=== PATIENT | female | born 1965 | race Caucasian/White ===

== ENCOUNTER → 2016-11-06 | Outpatient (CLI) | payer OTHER ==
--- NOTE | 2016-11-15 20:29 | Diagnostic Imaging Report ---
Bilateral screening mammogram. The current study was also evaluated with a Computer Aided Detection (CAD) system. INDICATION: Screening. No current complaints stated on the questionnaire. COMPARISON: 10/15/08. FINDINGS: The breasts are composed of heterogeneously dense parenchyma which may decrease mammographic sensitivity. There are scattered benign-appearing calcifications seen. Allowing for technique and positional differences, no suspicious change is seen. IMPRESSION: No significant change. ACR BI-RADS Category 2: Benign findings. Result letter will be mailed to the patient. Note: At least 10% of breast cancer is not imaged by mammography. Dictated by: Dictated on workstation # [id number]
== END ==
LOC: RAD 08:49
PROVIDERS: ATTEND Obstetrics & Gynecology
DX: Z12.31 Encounter for screening mammogram for malignant neoplasm of breast (principal)
CPT/HCPCS: 77067

== ENCOUNTER → 2018-11-26 | Outpatient (CLI) | payer OTHER ==
--- NOTE | 2018-11-26 21:26 | Diagnostic Imaging Report ---
INDICATION: Routine screening. COMPARISON: Prior mammogram from 11/06/2016. EXAMINATION: 2D and 3D bilateral screening mammography was performed with CAD. The current study was also evaluated with a Computer Aided Detection (CAD) system. FINDINGS: Scattered fibroglandular densities are identified, bilaterally. There are benign calcifications, bilaterally. No mass or malignant appearing microcalcifications are seen. The axillae are unremarkable. IMPRESSION: No mammographic features suspicious for malignancy are identified. ACR BI-RADS Category 2: Benign findings. Result letter will be mailed to the patient. Note: At least 10% of breast cancer is not imaged by mammography. Dictated by: Dictated on workstation # [id number]
== END ==
LOC: RAD 07:59
PROVIDERS: ATTEND Internal Medicine
DX: Z12.31 Encounter for screening mammogram for malignant neoplasm of breast (principal)
CPT/HCPCS: 77067

== ENCOUNTER 2019-03-22 03:03 | Emergency (ER) | payer OTHER ==
[~2019-03-22] VITALS: Ht 157.5 cm; Wt 61.7 kg
[~2019-03-22 03:03] MED LIST: ASPI-586 PO; ATOR10TA66 PO; CLOP75TA28 PO; NICO-449 BC; OMEP20CA13 PO
[2019-03-22] MEDS ORDERED: FAMOTIDINE 20MG/2ML IV (PEPCID) IV STA (03:16)
[2019-03-22] MEDS ORDERED: diphenhydrAMINE 50 MG/ML INJ (BENADRYL) IV STA (03:16)
[2019-03-22] MEDS ORDERED: methylPREDNISolone 125 MG (Solu-MEDROL) VIAL IV STA (03:16)
--- NOTE | 2019-03-22 03:23 | ED General ---
General Chief Complaint: Allergic Reaction Stated Complaint: HIVES Source of Information: Patient History of Present Illness Date Seen by Provider: Mar 22, 2019 Time Seen by Provider: 03:10 Initial Comments PT ARRIVES VIA POV FROM HOME C/O SEVERE ITCHING AND HIVES OVER MOST OF BODY SINCE 0700 YESTERDAY AM. NO DIFFICULTY BREATHING OR SWALLOWING NO SWELLING ANYWHERE NO HISTORY OF SIMILAR HAS NOT TAKEN ANYTHING FOR SYMPTOMS PT WAS RECENTLY STARTED ON PLAVIX, ATORVASTATIN AND ASPIRIN BY DR. FORBES--ON 02/27/19 HAS NOT TAKEN ANY OF THOSE MEDICATIONS BEFORE PT HAD PERIPHERAL ARTERY ANGIOGRAM 03/02/19 WHICH SHOWED PERIPHERAL ARTERY DISEASE AND LOWER ABDOMINAL AORTA ANEURYSM. NO INTERVENTION WAS DONE. Allergies and Home Medications Allergies Coded Allergies: No Known Drug Allergies (Unverified , 03/02/19) Home Medications Aspirin 81 Mg Tablet.dr, 81 MG PO DAILY, (Reported) Atorvastatin Calcium 10 Mg Tablet, 10 MG PO HS, (Reported) Clopidogrel Bisulfate 75 Mg Tablet, 75 MG PO DAILY, (Reported) Nicotine Polacrilex 4 Mg Lozenge, 4 MG BC QID, (Reported) Omeprazole 20 Mg Capsule.dr, 20 MG PO DAILY, (Reported) Prednisone 20 Mg Tab, 40 MG PO DAILY Prescribed by: DEMETRIS HAINES on 03/22/19 0401 Patient Home Medication List Home Medication List Reviewed: Yes Review of Systems Review of Systems Constitutional: no symptoms reported EENTM: no symptoms reported Respiratory: no symptoms reported; No cough, No short of breath, No wheezing Gastrointestinal: no symptoms reported Genitourinary: no symptoms reported Musculoskeletal: no symptoms reported Skin: see HPI, pruritus, rash Psychiatric/Neurological: Anxiety Hematologic/Lymphatic: Easy Bruising (SINCE STARTING ON ASPIRIN + PLAVIX 02/27/19) Immunological/Allergic: no symptoms reported Past Lnkjlen-Pfdagn-Cnuimn Hx Patient Social History Alcohol Use: Occasionally Uses Alcohol Beverage of Choice: Beer Recreational Drug Use: No Smoking Status: Current Everyday Smoker (1/2 PPD) Type Used: Cigarettes 2nd Hand Smoke Exposure: Yes Recent Foreign Travel: No Contact w/Someone Who Travel: No Recent Hopitalizations: No Past Medical History Surgeries: Yes (PERIPHERAL ARTERY ANGIOGRAM 03/02/19) Hysterectomy Respiratory: No Currently Using CPAP: No Currently Using BIPAP: No Cardiac: Yes (PERIPHERAL ARTERY DISEASE AND DISTAL ABDOMINAL AORTIC ANEURYSM NOTED ON PERIPHERAL ANGIOGRAM 03/02/19--NO INTERVENTION) High Cholesterol, Hypertension, Peripheral Vascular Neurological: No Genitourinary: No Gastrointestinal: Yes Gastroesophageal Reflux, Diverticulosis Musculoskeletal: No Endocrine: No HEENT: No Cancer: No Psychosocial: Yes Anxiety Blood Disorders: No Adverse Reaction/Blood Tranf: No Physical Exam Vital Signs Vital Signs - First Documented 03/22/19 03:06 Temp 96.6 Pulse 120 Resp 18 B/P (MAP) 121/96 (104) Pulse Ox 99 O2 Delivery Room Air Capillary Refill : Height, Weight, BMI Height: 5'2.00" Weight: 142lbs. 0.0oz. 64.679357ni; 26.0 BMI Method: General Appearance: No Apparent Distress, WD/WN, Anxious (EXTREMELY ANXIOUS), Other (CONSTANTLY SCRATCHING ALL OVER) HEENT: PERRL/EOMI, Normal ENT Inspection, Pharynx Normal, Other (NO SWELLING TO LIPS, TONGUE OR UVULA) Neck: Full Range of Motion, Normal Inspection, Non Tender, Supple Respiratory: Normal Breath Sounds, No Accessory Muscle Use, No Respiratory Distress Cardiovascular: Regular Rate, Rhythm, No Edema, No JVD, No Murmur Gastrointestinal: Non Tender, Soft Back: Normal Inspection Extremity: Normal Capillary Refill, No Pedal Edema Neurologic/Psychiatric: Alert, Oriented x3, No Motor/Sensory Deficits, 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 HEAD/NECK/FACE ARE SPARED. ), Other (PT HAS PATCHES OF SUB Q ECCHYMOSIS TO TRUNK AT SITES OF SCRATCHING, IS STARTING TO DEVELOP SIMILAR ON THIGHS AND DORSUM OF RIGHT HAND IN AREAS WHERE SHE IS CURRENTLY SCRATCHING. ) Progress/Results/Core Measures Suspected Sepsis SIRS Temperature: Pulse: Respiratory Rate: Laboratory Tests 03/22/19 03:13: White Blood Count 13.0H Blood Pressure / Mean: Laboratory Tests 03/22/19 03:13: Creatinine 0.72, INR Comment 0.9, Platelet Count 255, Total Bilirubin 0.7 Results/Orders Lab Results Laboratory Tests Test 03/22/19 03:13 Range/Units White Blood Count 13.0 H 4.3-11.0 10^3/uL Red Blood Count 5.33 4.35-5.85 10^6/uL Hemoglobin 16.6 H 11.5-16.0 G/DL Hematocrit 48 35-52 % Mean Corpuscular Volume 91 80-99 FL Mean Corpuscular Hemoglobin 31 25-34 PG Mean Corpuscular Hemoglobin Concent 34 32-36 G/DL Red Cell Distribution Width 14.9 H 10.0-14.5 % Platelet Count 255 130-400 10^3/uL Mean Platelet Volume 11.5 H 7.4-10.4 FL Neutrophils (%) (Auto) 60 42-75 % Lymphocytes (%) (Auto) 33 12-44 % Monocytes (%) (Auto) 5 0-12 % Eosinophils (%) (Auto) 1 0-10 % Basophils (%) (Auto) 0 0-10 % Neutrophils # (Auto) 7.8 1.8-7.8 X 10^3 Lymphocytes # (Auto) 4.3 H 1.0-4.0 X 10^3 Monocytes # (Auto) 0.7 0.0-1.0 X 10^3 Eosinophils # (Auto) 0.1 0.0-0.3 10^3/uL Basophils # (Auto) 0.0 0.0-0.1 10^3/uL Prothrombin Time 12.6 12.2-14.7 SEC INR Comment 0.9 0.8-1.4 Activated Partial Thromboplast Time 32 24-35 SEC Sodium Level 138 135-145 MMOL/L Potassium Level 4.1 3.6-5.0 MMOL/L Chloride Level 105 98-107 MMOL/L Carbon Dioxide Level 19 L 21-32 MMOL/L Anion Gap 14 5-14 MMOL/L Blood Urea Nitrogen 24 H 7-18 MG/DL Creatinine 0.72 0.60-1.30 MG/DL Estimat Glomerular Filtration Rate > 60 BUN/Creatinine Ratio 33 Glucose Level 136 H 70-105 MG/DL Calcium Level 9.5 8.5-10.1 MG/DL Corrected Calcium 9.4 8.5-10.1 MG/DL Total Bilirubin 0.7 0.1-1.0 MG/DL Aspartate Amino Transf (AST/SGOT) 16 5-34 U/L Alanine Aminotransferase (ALT/SGPT) 17 0-55 U/L Alkaline Phosphatase 122 40-136 U/L Total Protein 7.6 6.4-8.2 GM/DL Albumin 4.1 3.2-4.5 GM/DL My Orders Orders - ZAKI,DEMETRIS K DO Ed Iv/Invasive Line Start (03/22/19 03:16) Monitor-Rhythm Ecg Trace Only (03/22/19 03:16) Cbc With Automated Diff (03/22/19 03:16) Comprehensive Metabolic Panel (03/22/19 03:16) Protime With Inr (03/22/19 03:16) Partial Thromboplastin Time (03/22/19 03:16) Famotidine Injection (Pepcid Injection) (03/22/19 03:16) Diphenhydramine Injection (Benadryl Inje (03/22/19 03:16) Methylprednisolone Sod Succ (Solu-Medrol (03/22/19 03:16) Vital Signs/I&O 03/22/19 03:06 Temp 96.6 Pulse 120 Resp 18 B/P (MAP) 121/96 (104) Pulse Ox 99 O2 Delivery Room Air Capillary Refill : Progress Note : Progress Note PT IS MUCH CALMER AND ITCHING IMPROVED AND HIVES BEGINNING TO FADE WITH MEDICATIONS Departure Impression Primary Impression: Urticaria Additional Impression: SUSPECTED MEDICATION ALLERGY Disposition: HOME, SELF-CARE Condition: Improved Departure-Patient Inst. Referrals: MELLISA CURIEL MD (PCP/Family) Primary Care Physician Patient Instructions: Hives (DC), Drug Allergy Add. Discharge Instructions: STOP ASPIRIN, PLAVIX AND ATORVASTATIN TAKE CLARITIN 10 MG IN AM, BENADRYL 50 MG IN PM NEEDED FOR RASH AND ITCHING APPLY HYDROCORTISONE CREAM TO AFFECTED AREAS 3-4 TIMES A DAY LOTS OF CLEAR LIQUIDS FOLLOW UP WITH YOUR DR TOMORROW FOR FURTHER CARE, RETURN TO ER IF WORSE All discharge instructions reviewed with patient and/or family. Voiced understanding. Scripts Prednisone (Prednisone) 20 Mg Tab 40 MG PO DAILY, #6 TAB Prov: DEMETRIS HAINES DO 03/22/19 DEMETRIS HAINES DO Mar 22, 2019 03:23
[2019-03-22 03:26] LABS: BASOPHILS % (AUTO) 0 % (0-10); EOSINOPHILS # (AUTO) 0.1 10^3/uL (0.0-0.3); EOSINOPHILS % (AUTO) 1 % (0-10); HEMATOCRIT 48 % (35-52); HEMOGLOBIN 16.6 G/DL (11.5-16.0); LYMPHOCYTES # (AUTO) 4.3 X 10^3 (1.0-4.0); LYMPHOCYTES % (AUTO) 33 % (12-44); MEAN CORPUSCULAR HEMOGLOBIN 31 PG (25-34); MEAN CORPUSCULAR HGB CONC 34 G/DL (32-36); MEAN CORPUSCULAR VOLUME 91 FL (80-99); MEAN PLATELET VOLUME 11.5 FL (7.4-10.4); MONOCYTES # (AUTO) 0.7 X 10^3 (0.0-1.0); MONOCYTES % (AUTO) 5 % (0-12); NEUTROPHILS # (AUTO) 7.8 X 10^3 (1.8-7.8); NEUTROPHILS % (AUTO) 60 % (42-75); PLATELET COUNT 255 10^3/uL (130-400); RED CELL DISTRIBUTION WIDTH 14.9 % (10.0-14.5)
[2019-03-22 03:42] LABS: INR 0.9 (0.8-1.4); PROTHROMBIN TIME PATIENT 12.6 SEC (12.2-14.7)
[2019-03-22 03:50] LABS: ALANINE AMINOTRANSFERASE 17 U/L (0-55); ALBUMIN 4.1 GM/DL (3.2-4.5); ALKALINE PHOSPHATASE 122 U/L (40-136); BILIRUBIN,TOTAL 0.7 MG/DL (0.1-1.0); BUN/CREATININE RATIO 33; CALCIUM 9.5 MG/DL (8.5-10.1); CARBON DIOXIDE 19 MMOL/L (21-32); CHLORIDE 105 MMOL/L (98-107); CREATININE SERUM 0.72 MG/DL (0.60-1.30); GFR ESTIMATED > 60; GLUCOSE 136 MG/DL (70-105); POTASSIUM 4.1 MMOL/L (3.6-5.0); SODIUM 138 MMOL/L (135-145); TOTAL PROTEIN 7.6 GM/DL (6.4-8.2)
[2019-03-22] MEDS ORDERED: PRD20T PO (04:01)
[2019-03-22 04:13] VITALS: BP 113/72
== END 2019-03-22 04:13 | disposition home or self-care (01) ==
LOC: EDUNIT# 03:03 → ER 03:04
DX: L50.9 Urticaria, unspecified (principal); I73.9 Peripheral vascular disease, unspecified; F41.9 Anxiety disorder, unspecified; I10 Essential (primary) hypertension; E78.00 Pure hypercholesterolemia, unspecified; K21.9 Gastro-esophageal reflux disease without esophagitis; F17.210 Nicotine dependence, cigarettes, uncomplicated; Z87.19 Personal history of other diseases of the digestive system; Z79.02 Long term (current) use of antithrombotics/antiplatelets; Z79.82 Long term (current) use of aspirin; Z90.710 Acquired absence of both cervix and uterus
CPT/HCPCS: 36415; 80053; 85025; 85610; 85730; 93041

== ENCOUNTER 2019-03-24 04:44 | Emergency (ER) | payer OTHER ==
[~2019-03-24] VITALS: Ht 157.5 cm; Wt 61.7 kg
[~2019-03-24 04:44] MED LIST changes: +PRD20T PO
[2019-03-24] MEDS ORDERED: PANTOPRAZOLE 40 MG (PROTONIX) VIAL IV ONE (05:00)
[2019-03-24] MEDS ORDERED: NS IV 500 ML 500 ML IV ONE (05:00)
[2019-03-24] MEDS ORDERED: FAMOTIDINE 20MG/2ML IV (PEPCID) IV STA (05:00)
[2019-03-24] MEDS ORDERED: LIDOCAINE 2% VISCOUS 15 ML UDC PO ONE (05:00)
[2019-03-24] MEDS ORDERED: ANTACID SUSP 30 ML UDC (MYLANTA) PO ONE (05:00)
--- NOTE | 2019-03-24 05:06 | ED Integumentary General ---
General Stated Complaint: POSS ALLERGIC RXN Source: patient, spouse Exam Limitations: no limitations (RICCARDO MEDINA) History of Present Illness Date Seen by Provider: Mar 24, 2019 Time Seen by Provider: 04:50 Initial Comments The patient presents to ER by private conveyance with her and chief complaint that she's having worsening hives and itching. 2 days ago she was diagnosed with urticaria in the ER and put on Benadryl 50 mg every 4 hours as well as topical steroids and 40 mg prednisone daily. She says after she received the IV medications her symptoms nearly resolved. She was feeling better until yesterday. Yesterday he started to come back. She called her research software engineer and he recommended that she restart her Plavix. She had recently been started on Plavix and aspirin and atorvastatin. She was told by the ER doctor to discontinue the m edication since he recently started. Because of her coronary disease burden however her research software engineer recommended she at least be on Plavix which she restarted after the hives already were coming back. She also feels she has a dry mouth and a sharp burning pain starting in her epigastric region radiating up her mid sternum towards her throat where it is unlikely pain. She has a triple a going down in her thoracic cavity. She's not having anxiety that her pain in her chest may not be from her stomach but rather from her heart or AAA. She typically takes omeprazole but she stopped taking that when she started taking the Pepcid 2 days ago. (RICCARDO MEDINA) Allergies and Home Medications Allergies Coded Allergies: No Known Drug Allergies (Unverified , 03/02/19) Home Medications Aspirin 81 Mg Tablet.dr, 81 MG PO DAILY, (Reported) Atorvastatin Calcium 10 Mg Tablet, 10 MG PO HS, (Reported) Clopidogrel Bisulfate 75 Mg Tablet, 75 MG PO DAILY, (Reported) Methylprednisolone 4 Mg Tab, 4 MG PO UD as directed per dose pack Prescribed by: RICCARDO MEDINA on 03/24/19 0619 Nicotine Polacrilex 4 Mg Lozenge, 4 MG BC QID, (Reported) Omeprazole 20 Mg Capsule.dr, 20 MG PO DAILY, (Reported) Prednisone 20 Mg Tab, 40 MG PO DAILY Prescribed by: DEMETRIS HAINES on 03/22/19 0401 Patient Home Medication List Home Medication List Reviewed: Yes (RICCARDO MEDINA) Review of Systems Review of Systems Constitutional: No chills, No diaphoresis EENTM: No ear discharge, No ear pain Respiratory: No cough, No short of breath Cardiovascular: see HPI, chest pain; No edema; Hx of Intervention, vascular hea rt diseas Gastrointestinal: abdominal pain (epigastric); No constipation, No diarrhea Genitourinary: No discharge, No dysuria Musculoskeletal: No back pain, No joint pain Skin: see HPI, pruritus, rash (RICCARDO MEDINA) Past Wuriaer-Pkvgwn-Ykkvpv Hx Patient Social History Alcohol Use: Occasionally Uses Alcohol Beverage of Choice: Beer Recreational Drug Use: No Smoking Status: Current Everyday Smoker Type Used: Cigarettes (1 cig/day) 2nd Hand Smoke Exposure: Yes Recent Foreign Travel: No Contact w/Someone Who Travel: No Recent Hopitalizations: No (RICCARDO MEDINA) Past Medical History Surgeries: Yes (PERIPHERAL ARTERY ANGIOGRAM 03/02/19) Hysterectomy Respiratory: No Currently Using CPAP: No Currently Using BIPAP: No Cardiac: Yes High Cholesterol, Hypertension, Peripheral Vascular Neurological: No Genitourinary: No Gastrointestinal: Yes Gastroesophageal Reflux, Diverticulosis Musculoskeletal: No Endocrine: No HEENT: No Cancer: No Psychosocial: Yes Anxiety Integumentary: Yes Blood Disorders: No Adverse Reaction/Blood Tranf: No (RICCARDO MEDINA) Physical Exam Vital Signs Vital Signs - First Documented 03/24/19 03/24/19 04:49 05:21 Temp 98.2 Pulse 92 Resp 20 B/P (MAP) 164/92 (116) O2 Delivery Room Air (RENETTA RUSSELL MD) Vital Signs Capillary Refill : (RICCARDO MEDINA) General Appearance: WD/WN, no apparent distress HEENT: PERRL/EOMI, normal ENT inspection, TMs normal, pharynx normal Neck: non-tender, full range of motion, supple, normal inspection Cardiovascular: normal peripheral pulses, regular rate, rhythm, no edema Respiratory: lungs clear, normal breath sounds Gastrointestinal: normal bowel sounds, soft, tenderness (mild epigastric tenderness to direct palpation but without mesenteric signs, psoas sign, McBurney's point tenderness, Marks sign) Neurologic/Psychiatric: alert, normal mood/affect, oriented x 3 Skin: rash (urticaria with hives and pruritus.) Skin Problem Location: generalized (RICCARDO MEDINA) Progress/Results/Core Measures Results/Orders Lab Results Laboratory Tests Test 03/24/19 04:55 Range/Units White Blood Count 14.1 H 4.3-11.0 10^3/uL Red Blood Count 4.86 4.35-5.85 10^6/uL Hemoglobin 15.4 11.5-16.0 G/DL Hematocrit 45 35-52 % Mean Corpuscular Volume 92 80-99 FL Mean Corpuscular Hemoglobin 32 25-34 PG Mean Corpuscular Hemoglobin Concent 35 32-36 G/DL Red Cell Distribution Width 14.9 H 10.0-14.5 % Platelet Count 217 130-400 10^3/uL Mean Platelet Volume 11.6 H 7.4-10.4 FL Neutrophils (%) (Auto) 63 42-75 % Lymphocytes (%) (Auto) 29 12-44 % Monocytes (%) (Auto) 7 0-12 % Eosinophils (%) (Auto) 0 0-10 % Basophils (%) (Auto) 0 0-10 % Neutrophils # (Auto) 9.0 H 1.8-7.8 X 10^3 Lymphocytes # (Auto) 4.2 H 1.0-4.0 X 10^3 Monocytes # (Auto) 1.0 0.0-1.0 X 10^3 Eosinophils # (Auto) 0.0 0.0-0.3 10^3/uL Basophils # (Auto) 0.0 0.0-0.1 10^3/uL Neutrophils % (Manual) 58 % Lymphocytes % (Manual) 33 % Monocytes % (Manual) 9 % Prothrombin Time 13.2 12.2-14.7 SEC INR Comment 1.0 0.8-1.4 Activated Partial Thromboplast Time 29 24-35 SEC Sodium Level 143 135-145 MMOL/L Potassium Level 3.6 3.6-5.0 MMOL/L Chloride Level 106 98-107 MMOL/L Carbon Dioxide Level 24 21-32 MMOL/L Anion Gap 13 5-14 MMOL/L Blood Urea Nitrogen 22 H 7-18 MG/DL Creatinine 0.78 0.60-1.30 MG/DL Estimat Glomerular Filtration Rate > 60 BUN/Creatinine Ratio 28 Glucose Level 105 70-105 MG/DL Calcium Level 9.7 8.5-10.1 MG/DL Corrected Calcium 9.6 8.5-10.1 MG/DL Magnesium Level 2.2 1.6-2.4 MG/DL Total Bilirubin 0.6 0.1-1.0 MG/DL Aspartate Amino Transf (AST/SGOT) 13 5-34 U/L Alanine Aminotransferase (ALT/SGPT) 17 0-55 U/L Alkaline Phosphatase 99 40-136 U/L Myoglobin 31.7 10.0-92.0 NG/ML Troponin I < 0.028 <0.028 NG/ML Total Protein 7.6 6.4-8.2 GM/DL Albumin 4.1 3.2-4.5 GM/DL Lipase 18 8-78 U/L (RENETTA RUSSELL MD) My Orders Orders - RENETTA RUSSELL MD Loratadine Tablet (Claritin Tablet) (03/24/19 06:45) (RENETTA RUSSELL MD) Medications Given in ED Current Medications Medications Dose Ordered Sig/Siva Route Start Time Stop Time Status Last Admin Dose Admin Al Hydrox/Mg Hydrox/Simethicone 30 ml ONCE ONCE PO 03/24/19 05:00 03/24/19 05:04 DC 03/24/19 05:11 30 ML Diphenhydramine HCl 50 mg ONCE ONCE IVP 03/24/19 06:45 03/24/19 06:46 DC 03/24/19 06:40 50 MG Lidocaine HCl 15 ml ONCE ONCE PO 03/24/19 05:00 03/24/19 05:04 DC 03/24/19 05:11 15 ML Pantoprazole 40 mg ONCE ONCE IV 03/24/19 05:00 03/24/19 05:04 DC 03/24/19 05:12 40 MG Sodium Chloride 500 ml @ 0 mls/hr Q0M ONCE IV 03/24/19 05:00 03/24/19 05:04 DC 03/24/19 05:12 999 MLS/HR (RENETTA RUSSELL MD) Vital Signs/I&O 03/24/19 03/24/19 04:49 05:21 Temp 98.2 Pulse 92 Resp 20 B/P (MAP) 164/92 (116) O2 Delivery Room Air (RENETTA RUSSELL MD) Progress Progress Note #1: Time: 05:20 Progress Note Famotidine, no Benadryl since she just took some 50 mg and I suspect with her dry mouth she may be a little too much anticholinergics. Solu-Medrol, fluids, pantoprazole and a GI cocktail so I suspect could be epigastric pain to her GERD. EKG was obtained that did demonstrate some ST depression in the lateral leads about one block. We will repeat an EKG posteriorly to make sure there is not a ST elevation AK in a posterior coronary. 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 Manual blood pressure 164/92. Catheterization March 02, [address] Romero: Patent bilateral renal arteries. Suprarenal aorta is normal. Severe infrarenal distal abdominal aortic disease with aortic aneurysm. Patent bilateral common carotid, external iliac artery, common femoral artery. Mild diffuse disease bilaterally SFA and popliteal artery. Progress Note #2: Time: 05:46 Progress Note The GI cocktail made a significant decrease in her epigastric comfort. Her troponin is normal and its been close to 12 hours since the discomfort started. AAA is below the renal arteries and not near where she is having her pain. Her epigastric region is tender to direct palpation suspect this is her GERD and she needs to resume taking her omeprazole. The steroids could possibly worsen her GERD in addition to stopping her omeprazole for the past 2 days. (RICCARDO MEDINA) Progress Note : Time: 07:33 Progress Note Patient did well after repeat Benadryl. Symptoms continued to decrease but had not completely resolved. Loratadine was also given. See discharge instructions from Dr. Medina. (RENETTA RUSSELL MD) Initial ECG Impression Date: Mar 24, 2019 Initial ECG Impression Time: 05:06 Initial ECG Rate: 91 Initial ECG Rhythm: Normal Sinus Initial ECG Intervals: QT (463) Initial ECG Impression: Normal, Nonspecific Changes Initial ECG Comparisson: No Previous ECG Available Comment PVCs. Sinus rhythm. One block of ST depression in the lateral leads, V3, V4, V5 and V6. EKG : EKG Time: 05:25 Rate: 85 Rhythm: Normal Sinus Intervals: Normal ECG Comparisson: Unchanged ECG Impression: Normal, Nonspecific Changes Comment Normal sinus rhythm with PACs and no clinically significant ST elevation or depression. (RICCARDO MEDINA) Diagnostic Imaging Diagonstic Imaging: Xray Plain Films/CT/US/NM/MRI: chest (1v) Comments No acute cardiopulmonary process on one view chest x-ray. Reviewed: Reviewed by Me (RICCARDO MEDINA) Departure Impression Primary Impression: Urticaria Disposition: HOME, SELF-CARE Condition: Improved Departure-Patient Inst. Decision time for Depature: 06:17 (RICCARDO MEDINA) Referrals: MELLISA CURIEL MD (PCP/Family) Primary Care Physician Patient Instructions: Hives (DC) Add. Discharge Instructions: Continue taking your Plavix as prescribed. For the hives I suggest using a baseline second-generation antihistamine such as Claritin/loratadine or Zyrtec/cetirizine 1 tablet daily. If you're still having itching breakthrough within every 6 hours you can take one or 2 tablets of Benadryl as needed. Keep your skin moisturized with a ointment such as Eucerin, CeraVe or Nutraderm. Continue to take the famotidine one tablet twice daily and omeprazole daily. Return to the ER having severe chest pain, shortness of breath, difficulty swallowing fluids, swollen tongue, wheezing or stridor. 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 Follow-up with your primary care doctor for continued management. Scripts Methylprednisolone (Medrol) 4 Mg Tab 4 MG PO UD for 6 Days, #21 TAB 0 Refills as directed per dose pack Prov: RICCARDO MEDINA 03/24/19 Work/School Note: Work Release Form Date Seen in the Emergency Department: Mar 24, 2019 Return to Work: Mar 26, 2019 Restrictions: No Restrictions Copy Copies To 1: MELLISA CURIEL MD, TITUS J Mar 24, 2019 05:06 RENETTA RUSSELL MD Mar 24, 2019 07:18
[2019-03-24 05:11] LABS: BASOPHILS % (AUTO) 0 % (0-10); EOSINOPHILS % (AUTO) 0 % (0-10); HEMATOCRIT 45 % (35-52); HEMOGLOBIN 15.4 G/DL (11.5-16.0); LYMPHOCYTES # (AUTO) 4.2 X 10^3 (1.0-4.0); LYMPHOCYTES % (AUTO) 29 % (12-44); MEAN CORPUSCULAR HEMOGLOBIN 32 PG (25-34); MEAN CORPUSCULAR HGB CONC 35 G/DL (32-36); MEAN CORPUSCULAR VOLUME 92 FL (80-99); MEAN PLATELET VOLUME 11.6 FL (7.4-10.4); MONOCYTES % (AUTO) 7 % (0-12); NEUTROPHILS % (AUTO) 63 % (42-75); PLATELET COUNT 217 10^3/uL (130-400); RED CELL DISTRIBUTION WIDTH 14.9 % (10.0-14.5); WHITE BLOOD COUNT 14.1 10^3/uL (4.3-11.0)
[2019-03-24 05:16] LABS: PROTHROMBIN TIME PATIENT 13.2 SEC (12.2-14.7)
[2019-03-24 05:26] LABS: ALANINE AMINOTRANSFERASE 17 U/L (0-55); ALBUMIN 4.1 GM/DL (3.2-4.5); ALKALINE PHOSPHATASE 99 U/L (40-136); BILIRUBIN,TOTAL 0.6 MG/DL (0.1-1.0); BUN/CREATININE RATIO 28; CALCIUM 9.7 MG/DL (8.5-10.1); CARBON DIOXIDE 24 MMOL/L (21-32); CHLORIDE 106 MMOL/L (98-107); CREATININE SERUM 0.78 MG/DL (0.60-1.30); GFR ESTIMATED > 60; GLUCOSE 105 MG/DL (70-105); LIPASE 18 U/L (8-78); MAGNESIUM 2.2 MG/DL (1.6-2.4); POTASSIUM 3.6 MMOL/L (3.6-5.0); SODIUM 143 MMOL/L (135-145); TOTAL PROTEIN 7.6 GM/DL (6.4-8.2)
[2019-03-24] MEDS ORDERED: NF-METHYLP PO (06:19)
[2019-03-24 06:29] LABS: LYMPHOCYTES % (MANUAL) 33 %; MONOCYTES % (MANUAL) 9 %; NEUTROPHILS % (MANUAL) 58 %
[2019-03-24] MEDS ORDERED: LORATADINE (CLARITIN) 10 MG TAB PO ONE (06:45)
[2019-03-24] MEDS ORDERED: diphenhydrAMINE 50 MG/ML INJ (BENADRYL) IVP ONE (06:45)
--- NOTE | 2019-03-24 07:07 | Diagnostic Imaging Report ---
Indication: Epigastric pain Upright chest shows normal heart size and vascularity. The lungs are clear. There is no effusion or pneumothorax. There is no bony ABnormality. Impression: Normal chest. Dictated by: Dictated on workstation # [id number]
[2019-03-24 07:32] VITALS: BP 152/74
--- NOTE | 2019-03-24 07:32 | NUR ---
B/P ON TAKEN THROUGH PATIENT STAY PER NIGHT [facility] REPORTS B/P NOT WORKING ON PATIENT. MANUAL DONE ON DISCHARGE.
== END 2019-03-24 07:32 | disposition home or self-care (01) ==
LOC: EDUNIT# 04:44 → ER 04:46
DX: L50.9 Urticaria, unspecified (principal); I73.9 Peripheral vascular disease, unspecified; I10 Essential (primary) hypertension; E78.00 Pure hypercholesterolemia, unspecified; K21.9 Gastro-esophageal reflux disease without esophagitis; F41.9 Anxiety disorder, unspecified; F17.210 Nicotine dependence, cigarettes, uncomplicated; Z87.19 Personal history of other diseases of the digestive system; Z79.82 Long term (current) use of aspirin; Z79.02 Long term (current) use of antithrombotics/antiplatelets; Z90.710 Acquired absence of both cervix and uterus
CPT/HCPCS: 36415; 71045; 80053; 83690; 83735; 83874; 84484; 85007; 85027; 85610; 85730; 93005; 93041

== ENCOUNTER 2019-04-30 16:20 | Emergency (ER) | payer OTHER ==
[~2019-04-30] VITALS: Ht 157 cm; Wt 59.0 kg
[~2019-04-30 16:20] MED LIST changes: +NF-METHYLP PO
[2019-04-30] MEDS ORDERED: LACTATED RINGERS 1,000 ML IV ONE (16:51)
[2019-04-30] MEDS ORDERED: fentaNYL INJECTION 100 MCG/2 ML AMP IVP STA (16:54)
[2019-04-30] MEDS ORDERED: ACETAMINOPHEN 500 MG TAB (TYLENOL) PO STA (16:54)
[2019-04-30 17:05] LABS: BASOPHILS % (AUTO) 0 % (0-10); EOSINOPHILS # (AUTO) 0.1 10^3/uL (0.0-0.3); EOSINOPHILS % (AUTO) 1 % (0-10); HEMATOCRIT 42 % (35-52); HEMOGLOBIN 14.2 G/DL (11.5-16.0); LYMPHOCYTES # (AUTO) 1.9 X 10^3 (1.0-4.0); LYMPHOCYTES % (AUTO) 17 % (12-44); MEAN CORPUSCULAR HEMOGLOBIN 31 PG (25-34); MEAN CORPUSCULAR HGB CONC 34 G/DL (32-36); MEAN CORPUSCULAR VOLUME 92 FL (80-99); MEAN PLATELET VOLUME 11.4 FL (7.4-10.4); MONOCYTES # (AUTO) 0.8 X 10^3 (0.0-1.0); MONOCYTES % (AUTO) 8 % (0-12); NEUTROPHILS # (AUTO) 8.2 X 10^3 (1.8-7.8); NEUTROPHILS % (AUTO) 75 % (42-75); PLATELET COUNT 202 10^3/uL (130-400); RED CELL DISTRIBUTION WIDTH 15.1 % (10.0-14.5)
[2019-04-30 17:10] LABS: PROTHROMBIN TIME PATIENT 13.6 SEC (12.2-14.7)
[2019-04-30 17:15] LABS: BILIRUBIN,URINE NEGATIVE (NEGATIVE); CLARITY,URINE CLEAR; COLOR,URINE YELLOW; GLUCOSE, URINE (UA) NEGATIVE (NEGATIVE); KETONES,URINE 2+ (NEGATIVE); LEUKOCYTE ESTERASE ,URINE 1+ (NEGATIVE); NITRITE,URINE NEGATIVE (NEGATIVE); PH,URINE 5 (5-9); PROTEIN,URINE NEGATIVE (NEGATIVE); UROBILINOGEN,URINE NORMAL (NORMAL)
[2019-04-30] MEDS ORDERED: CATHETER FLUSH 10 ML SYR IV PRN (17:15)
[2019-04-30] MEDS ORDERED: NS 100 ML (IVPB) BAG IV ONE (17:15)
[2019-04-30] MEDS ORDERED: HOLD METFORMIN - RECEIVED CONTRAST 20 ML VIAL IV SCH (17:15)
[2019-04-30] MEDS ORDERED: IOHEXOL 350 MG/ML 100 ML (OMNIPAQUE 350) VIAL IV ONE (17:15)
[2019-04-30 17:19] LABS: ALANINE AMINOTRANSFERASE 30 U/L (0-55); ALBUMIN 4.2 GM/DL (3.2-4.5); ALKALINE PHOSPHATASE 104 U/L (40-136); BILIRUBIN,TOTAL 0.5 MG/DL (0.1-1.0); BUN/CREATININE RATIO 28; CALCIUM 9.5 MG/DL (8.5-10.1); CARBON DIOXIDE 25 MMOL/L (21-32); CHLORIDE 108 MMOL/L (98-107); CREATININE SERUM 0.72 MG/DL (0.60-1.30); GFR ESTIMATED > 60; GLUCOSE 113 MG/DL (70-105); POTASSIUM 3.3 MMOL/L (3.6-5.0); SODIUM 141 MMOL/L (135-145); TOTAL PROTEIN 7.2 GM/DL (6.4-8.2)
[2019-04-30 17:21] LABS: BACTERIA,URINE NEGATIVE /HPF; WBC,URINE 0-2 /HPF
--- NOTE | 2019-04-30 17:29 | ED Abdominal Pain ---
General Chief Complaint: Abdominal/GI Problems Stated Complaint: DX W/ DIVERTICULITIS/ABD PAIN/CP/ARM PAIN Nursing Triage Note: Pt ambulates to [facility] 9 with C/O abd pain that radiates to lower back. Pt states she was Dx with AAA early Mar and Hx of diverticulitis. Pt states pain has worsened since Saturday. Sepsis Screen: No Definite Risk Source of Information: Patient Exam Limitations: No Limitations (RENETTA LAWLER STUDENT) History of Present Illness Date Seen by Provider: Apr 30, 2019 Time Seen by Provider: 17:00 Initial Comments The patient is a wd/wn 54 y/o female who is here with a chief complaint of abdominal pain. The has left lower abdominal pain that started last and is getting progressively worse. She describes the pain as sharp at 7/10, most intense in the left lower quadrant with mild pain throughout her abdomen. She is also experiencing lower back pain. She was seen at her primary care physician's offic on Saturday and was diagnosed with acute diverticulitis. She was prescribed ciprofloxacin and instructed to return if her symptoms did not improve. Urinalysis at the physician's office was also unremarkable according to the patient. Her pain is continuing to get worse and that brought her to the ER today. She denies nausea, vomiting, diarrhea, or fevers. She mentions that she was recently diagnosed with an abdominal aortic aneurysm. Timing/Duration: 6-7 Days Location: LLQ Radiation: Back Activities at Onset: None Modifying Factors: Improves With Lying down; Worsens With Movement Associated Symptoms: No Nausea/Vomiting, No Shortness of Air (RENETTA LAWLER MED STUDENT) Initial Comments See preceptor note below. (RENETTA RUSSELL MD) Allergies and Home Medications Allergies Coded Allergies: No Known Drug Allergies (Unverified , 03/02/19) Home Medications Aspirin 81 Mg Tablet.dr, 81 MG PO DAILY, (Reported) Atorvastatin Calcium 10 Mg Tablet, 10 MG PO HS, (Reported) Clopidogrel Bisulfate 75 Mg Tablet, 75 MG PO DAILY, (Reported) Methylprednisolone 4 Mg Tab, 4 MG PO UD as directed per dose pack Prescribed by: RICCARDO KUO on 03/24/19 0619 Nicotine Polacrilex 4 Mg Lozenge, 4 MG BC QID, (Reported) Omeprazole 20 Mg Capsule.dr, 20 MG PO DAILY, (Reported) Prednisone 20 Mg Tab, 40 MG PO DAILY Prescribed by: DEMETRIS HAINES on 03/22/19 0401 Patient Home Medication List Home Medication List Reviewed: Yes (RENETTA RUSSELL MD) Review of Systems Review of Systems Constitutional: No fever, No malaise EENTM: No Blurred Vision, No Double Vision Respiratory: Denies Cough, Denies Shortness of Air Cardiovascular: Denies Chest Pain, Denies Palpitations Gastrointestinal: Abdominal Pain, Constipated; Denies Diarrhea, Denies Nausea, Denies Vomiting (RENETTA LAWLER STUDENT) Past Jjcetob-Ajommz-Hzrirj Hx Patient Social History Alcohol Use: Denies Use Number of Drinks Today: AA Alcohol Beverage of Choice: Beer Recreational Drug Use: No Smoking Status: Current Everyday Smoker Type Used: Cigarettes 2nd Hand Smoke Exposure: Yes Recent Foreign Travel: No Contact w/Someone Who Travel: No Recent Infectious Disease Expo: No Recent Hopitalizations: No Physical Abuse: No Sexual Abuse: No Mistreated: No Fear: No (RENETTA LAWLER) Past Medical History Surgeries: Yes (PERIPHERAL ARTERY ANGIOGRAM 03/02/19) Hysterectomy Respiratory: No Currently Using CPAP: No Currently Using BIPAP: No Cardiac: Yes Aneurysm, High Cholesterol, Hypertension, Peripheral Vascular Neurological: No Genitourinary: No Gastrointestinal: Yes Gastroesophageal Reflux, Diverticulosis Musculoskeletal: No Endocrine: No HEENT: No Cancer: No Psychosocial: Yes Anxiety Integumentary: Yes Blood Disorders: No Adverse Reaction/Blood Tranf: No (RENETTA LAWLER STUDENT) Physical Exam Vital Signs Vital Signs - First Documented 04/30/19 16:36 Temp 38.0 Pulse 100 Resp 19 B/P (MAP) 146/96 (113) Pulse Ox 98 O2 Delivery Room Air (RENETTA RUSSELL MD) Vital Signs Capillary Refill : Less Than 3 Seconds (RENETTA LAWLER STUDENT) Height/Weight/BMI Height: 5'2.00" Weight: 136lbs. 0.0oz. 61.511931rz; 23.00 BMI Method:Stated General Appearance: WD/WN, no apparent distress HEENT: PERRL/EOMI Respiratory: chest non-tender, lungs clear, normal breath sounds Gastrointestinal: normal bowel sounds, soft, tenderness Neurologic/Psychiatric: no motor/sensory deficits, alert, normal mood/affect, oriented x 3 Skin: normal color, warm/dry (RENETTA LAWLER MED STUDENT) Focused Exam Lactate Level 04/30/19 16:56: Lactic Acid Level 1.15 (RENETTA RUSSELL MD) Lactic Acid Level Laboratory Tests Test 04/30/19 16:56 Lactic Acid Level 1.15 MMOL/L (0.50-2.00) (RENETTA RUSSELL MD) Progress/Results/Core Measures Results/Orders Lab Results Laboratory Tests Test 04/30/19 16:50 04/30/19 16:56 04/30/19 17:00 Range/Units White Blood Count 11.0 4.3-11.0 10^3/uL Red Blood Count 4.57 4.35-5.85 10^6/uL Hemoglobin 14.2 11.5-16.0 G/DL Hematocrit 42 35-52 % Mean Corpuscular Volume 92 80-99 FL Mean Corpuscular Hemoglobin 31 25-34 PG Mean Corpuscular Hemoglobin Concent 34 32-36 G/DL Red Cell Distribution Width 15.1 H 10.0-14.5 % Platelet Count 202 130-400 10^3/uL Mean Platelet Volume 11.4 H 7.4-10.4 FL Neutrophils (%) (Auto) 75 42-75 % Lymphocytes (%) (Auto) 17 12-44 % Monocytes (%) (Auto) 8 0-12 % Eosinophils (%) (Auto) 1 0-10 % Basophils (%) (Auto) 0 0-10 % Neutrophils # (Auto) 8.2 H 1.8-7.8 X 10^3 Lymphocytes # (Auto) 1.9 1.0-4.0 X 10^3 Monocytes # (Auto) 0.8 0.0-1.0 X 10^3 Eosinophils # (Auto) 0.1 0.0-0.3 10^3/uL Basophils # (Auto) 0.0 0.0-0.1 10^3/uL Prothrombin Time 13.6 12.2-14.7 SEC INR Comment 1.0 0.8-1.4 Activated Partial Thromboplast Time 32 24-35 SEC Sodium Level 141 135-145 MMOL/L Potassium Level 3.3 L 3.6-5.0 MMOL/L Chloride Level 108 H 98-107 MMOL/L Carbon Dioxide Level 25 21-32 MMOL/L Anion Gap 8 5-14 MMOL/L Blood Urea Nitrogen 20 H 7-18 MG/DL Creatinine 0.72 0.60-1.30 MG/DL Estimat Glomerular Filtration Rate > 60 BUN/Creatinine Ratio 28 Glucose Level 113 H 70-105 MG/DL Calcium Level 9.5 8.5-10.1 MG/DL Corrected Calcium 9.3 8.5-10.1 MG/DL Total Bilirubin 0.5 0.1-1.0 MG/DL Aspartate Amino Transf (AST/SGOT) 24 5-34 U/L Alanine Aminotransferase (ALT/SGPT) 30 0-55 U/L Alkaline Phosphatase 104 40-136 U/L Total Protein 7.2 6.4-8.2 GM/DL Albumin 4.2 3.2-4.5 GM/DL Lactic Acid Level 1.15 0.50-2.00 MMOL/L Urine Color YELLOW Urine Clarity CLEAR Urine pH 5 5-9 Urine Specific [place] 1.010 L 1.016-1.022 Urine Protein NEGATIVE NEGATIVE Urine Glucose (UA) NEGATIVE NEGATIVE Urine Ketones 2+ H NEGATIVE Urine Nitrite NEGATIVE NEGATIVE Urine Bilirubin NEGATIVE NEGATIVE Urine Urobilinogen NORMAL NORMAL MG/DL Urine Leukocyte Esterase 1+ H NEGATIVE Urine RBC (Auto) NEGATIVE NEGATIVE Urine RBC NONE /HPF Urine WBC 0-2 /HPF Urine Squamous Epithelial Cells 2-5 /HPF Urine Crystals NONE /LPF Urine Bacteria NEGATIVE /HPF Urine Casts NONE /LPF Urine Mucus NEGATIVE /LPF Urine Culture Indicated CULTURE PENDING (RENETTA RUSSELL MD) Medications Given in ED Current Medications Medications Dose Ordered Sig/Siva Route Start Time Stop Time Status Last Admin Dose Admin Iohexol 100 ml ONCE ONCE IV 04/30/19 17:15 04/30/19 17:17 DC 04/30/19 17:46 85 ML Lactated Ringer's 1,000 ml @ 0 mls/hr Q0M ONCE IV 04/30/19 16:51 04/30/19 16:56 DC 04/30/19 17:11 0 MLS/HR Sodium Chloride 10 ml NEEDED PRN IV 04/30/19 17:15 04/30/19 17:46 10 ML Sodium Chloride 100 ml ONCE ONCE IV 04/30/19 17:15 04/30/19 17:17 DC 04/30/19 17:46 80 ML (RENETTA RUSSELL MD) Vital Signs/I&O 04/30/19 16:36 Temp 38.0 Pulse 100 Resp 19 B/P (MAP) 146/96 (113) Pulse Ox 98 O2 Delivery Room Air (RENETTA RUSSELL MD) Blood Pressure Mean: 113 Diagnostic Imaging Diagonstic Imaging: CT Plain Films/CT/US/NM/MRI: chest, abdomen, pelvis Comments CT chest, abdomen and pelvis angiogram viewed by me and report reviewed. See report below: NAME: LEROY TERRAZAS [facility] REC#: [id number] PT STATUS: REG ER : 1965 PHYSICIAN: ENRRIQUE BANERJEE MD ADMIT DATE: 04/30/19/ER Signed Date of Exam: 04/30/19 CT ANGIO CHST/ABD/PELV W PROCEDURE: CT angiography of the chest with contrast and CT abdomen and pelvis with contrast. TECHNIQUE: Multiple contiguous axial images were obtained through the chest, abdomen and pelvis after administration of intravenous contrast. 3D MIP reconstructed CT angiography acquisitions of the aorta were then performed. Auto Exposure Controls were utilized during the CT exam to meet ALARA standards for radiation dose reduction. INDICATION: Abdominal aortic aneurysm. FINDINGS: Good opacification of the aorta. The aortic root measures approximately 3 cm. There is some atherosclerotic disease of the descending thoracic aorta and abdominal aorta. There is no evidence of aortic aneurysm. There is high-grade stenosis of the distal aorta just proximal to the iliac bifurcation estimated 90%. There is opacification of both common iliac arteries with high-grade stenosis of the right common iliac artery estimated greater than 80%. External iliac arteries are widely patent. There is moderate atherosclerotic change of the common femoral artery bilaterally. Both renal arteries are widely patent. The superior and inferior mesenteric artery are widely patent. Celiac arteries are widely patent. The lungs are clear. No mediastinal or hilar adenopathy of pathologic size. Largest lymph node is in the right hilum measuring approximately 12 mm. Liver appears normal. Gallbladder and bile ducts are normal. Pancreas and spleen are normal. The adrenal glands show a well-circumscribed fatty lesion on the right measuring 3 cm. Left adrenal gland is normal. Kidneys appear normal. The adrenal gland shows mean Hounsfield unit of 42 on the arterial phase with the mean Hounsfield unit of 33 on the delayed images. The nonenhanced images show mean Hounsfield unit of -2. Bowel gas pattern appears normal throughout. Appendix is visualized and normal. There are no pelvic masses. Uterus is absent. There is no free air or free fluid. Reconstructed images of the thoracic and lumbar spine show no evidence of compression fractures with good alignment. IMPRESSION: 1. Severe atherosclerotic changes noted in distal aorta with high-grade stenosis estimated 90%. Also hemodynamic stenosis of the right common iliac artery. 2. 3 cm fatty well-circumscribed adrenal lesion on the right likely representing adenoma. Followup recommended to confirm stability. Dictated by: Dictated on workstation # [id number] Dict: 04/30/191749 Trans: 04/30/191923 Interpreted by: ELISEO BABCOCK MD Electronically signed by: ELISEO BABCOCK MD 04/30/191923 Diagonstic Imaging: Xray Plain Films/CT/US/NM/MRI: chest Comments NAME: LEROY TERRAZAS [facility] REC#: [id number] PT STATUS: REG ER : 1965 PHYSICIAN: ENRRIQUE BANERJEE MD ADMIT DATE: 04/30/19/ER Signed Date of Exam: 04/30/19 CHEST 1 VIEW, AP/PA ONLY INDICATION: Febrile. History of aortic aneurysm. Back pain. COMPARISON: 03/24/2019. FINDINGS: The lungs are well aerated. There are no infiltrates. There is no air trapping. The heart is not enlarged. No pulmonary edema. No hilar adenopathy. No pneumothorax or pleural effusion. No bony abnormalities. IMPRESSION: Normal portable chest. Dictated by: Dictated on workstation # [id number] Dict: 04/30/191726 Trans: 04/30/191923 Interpreted by: ELISEO BABCOCK MD Electronically signed by: ELISEO BABCOCK MD 04/30/191923 (RENETTA RUSSELL MD) Departure Impression Primary Impression: Abdominal aortic aneurysm Qualified Codes: I71.4 - Abdominal aortic aneurysm, without rupture Additional Impression: Left lower quadrant pain Disposition: XFER SHT-TRM HOSP Condition: Stable Transfer Time Spoke to Accepting Phy: 19:10 Transfer Progress Notes Transfer to [facility] was facilitated by Dr. Forbes who contacted Dr. Craven personally and in consultation with him recommended transfer to [facility]. Dr. Craven confirmed a transfer with transfer center with whom I have been in contact. Transfer Time: 21:38 Transfer Facility: [facility] Method of Transfer: EMS (RENETTA RUSSELL MD) Departure-Patient Inst. Referrals: MELLISA CURIEL MD (PCP/Family) Primary Care Physician I have personally seen, interviewed, and examined this patient along with Danilo Lawler, MS 4. I agree with MS 4 history, physical, assessment, and documentation. I assumed care of this patient from Dr. Banerjee at shift change. Chart has been reviewed including CT scan which was viewed by me and report reviewed. I've examined the patient. I agree with above note with the following additions and changes: Patient had an abdominal aortic aneurysm identified in late March by angiogram performed by Dr. Forbes. She has referral to Dr. Craven pending at [facility] for May 18. She has been experiencing increasing abdominal pain over the past 10 days. She was seen earlier in the week prior primary care provider who thought perhaps she had diverticulitis. She has been on antibiotics since Saturday. This has not improved her pain. In fact, her pain has worsened. CT angiogram was obtained today which showed evidence of distal abdominal aortic stenosis that extends into the iliac arteries up to 90 percent. This stenosis was characterized as aneurysmal by Dr. Forbes on the angiogram previously. Exam: Gen.: Alert, oriented, uncomfortable HEENT: Normocephalic and atraumatic, mucous membranes moist Neck: Normal to inspection Lungs: Clear to auscultation bilaterally with normal effort Heart: Regular rate and rhythm without murmur Abdomen: Soft, minimally tender in the right lower quadrant and moderately tender in the left lower quadrant, no masses, nondistended, normal bowel sounds Extremities: No edema, nontender, brisk capillary refill bilaterally, posterior pedal pulses faintly palpable in the left leg, dorsal pedal pulses not palpable on the left. Skin: Warm and dry without rashes, no rashes on the abdomen in the area of pain Neuro psych: Alert, oriented, no focal deficits, slightly anxious Patient's pain is primarily localized in the left lower quadrant. She also com [place] of some lower back aching and IV sleep had some pain in the right lower quadrant as well. Fentanyl successfully treated her pain. I discussed the case with Dr. Guero Fitch, vascular surgeon community education specialist at [facility]. He suggested expediting the consultation to early next week but was not certain [facility]. I updated Dr. Forbes who contacted Dr. Craven. After consultation between the 2 of them, the decision was made to transfer her to [facility]. Patient did have a borderline temperature of 100.4 on initial assessment. Temperature is now 98.1 after Tylenol. It is possible that her abdominal pain could be related to viral illness. However, in the context of serious vascular disease in the lower abdomen, she deserves closer evaluation by a vascular specialist. No alternative source for pain has been identified. No infectious etiologies have been identified. Patient is agreeable to transfer. Arrangements are being made to transfer her via EMS. 20:20 - I spoke with Dr. Craven personally and reviewed the case. He would like to keep with the plan of transfer to [facility]. We are still awaiting bed assignment to activate EMS. 21:21 - patient's room is now clean and ready. [facility] EMS transfer is presently not available for several hours. Given patient's stable condition, we will allow her to be transported by private vehicle with her which is their desire. [facility] was given an update on this status. Patient has promised to go directly from [facility] to [facility] without any other stops and to remain NPO. (RENETTA RUSSELL MD) Copy Copies To 1: MELLISA CURIEL MD Copies To 2: Philippe FORBES MD, JOSHUA K MED STUDENT Apr 30, 2019 17:29 RENETTA RUSSELL MD Apr 30, 2019 19:30
--- NOTE | 2019-04-30 17:32 | Diagnostic Imaging Report ---
INDICATION: Febrile. History of aortic aneurysm. Back pain. COMPARISON: 03/24/2019. FINDINGS: The lungs are well aerated. There are no infiltrates. There is no air trapping. The heart is not enlarged. No pulmonary edema. No hilar adenopathy. No pneumothorax or pleural effusion. No bony abnormalities. IMPRESSION: Normal portable chest. Dictated by: Dictated on workstation # [id number]
--- NOTE | 2019-04-30 18:02 | Diagnostic Imaging Report ---
PROCEDURE: CT angiography of the chest with contrast and CT abdomen and pelvis with contrast. TECHNIQUE: Multiple contiguous axial images were obtained through the chest, abdomen and pelvis after administration of intravenous contrast. 3D MIP reconstructed CT angiography acquisitions of the aorta were then performed. Auto Exposure Controls were utilized during the CT exam to meet ALARA standards for radiation dose reduction. INDICATION: Abdominal aortic aneurysm. FINDINGS: Good opacification of the aorta. The aortic root measures approximately 3 cm. There is some atherosclerotic disease of the descending thoracic aorta and abdominal aorta. There is no evidence of aortic aneurysm. There is high-grade stenosis of the distal aorta just proximal to the iliac bifurcation estimated 90%. There is opacification of both common iliac arteries with high-grade stenosis of the right common iliac artery estimated greater than 80%. External iliac arteries are widely patent. There is moderate atherosclerotic change of the common femoral artery bilaterally. Both renal arteries are widely patent. The superior and inferior mesenteric artery are widely patent. Celiac arteries are widely patent. The lungs are clear. No mediastinal or hilar adenopathy of pathologic size. Largest lymph node is in the right hilum measuring approximately 12 mm. Liver appears normal. Gallbladder and bile ducts are normal. Pancreas and spleen are normal. The adrenal glands show a well-circumscribed fatty lesion on the right measuring 3 cm. Left adrenal gland is normal. Kidneys appear normal. The adrenal gland shows mean Hounsfield unit of 42 on the arterial phase with the mean Hounsfield unit of 33 on the delayed images. The nonenhanced images show mean Hounsfield unit of -2. Bowel gas pattern appears normal throughout. Appendix is visualized and normal. There are no pelvic masses. Uterus is absent. There is no free air or free fluid. Reconstructed images of the thoracic and lumbar spine show no evidence of compression fractures with good alignment. IMPRESSION: 1. Severe atherosclerotic changes noted in distal aorta with high-grade stenosis estimated 90%. Also hemodynamic stenosis of the right common iliac artery. 2. 3 cm fatty well-circumscribed adrenal lesion on the right likely representing adenoma. Followup recommended to confirm stability. Dictated by: Dictated on workstation # [id number]
--- NOTE | 2019-04-30 21:10 | NUR ---
[facility] UNABLE TO TRANSFER PT. DR. RUSSELL SPOKE WITH [facility] AND AGREES TO PT GOING BY POV. DR. RUSSELL SPOKE WITH PT AND WHO AGREE.
[2019-04-30 21:38] VITALS: BP 150/80
--- NOTE | 2019-04-30 21:38 | NUR ---
RIGHT AC IV SITE DC'D PRIOR TO DC FOR POV TRANSFER TO [facility].
== END 2019-04-30 21:38 | disposition short-term general hospital (02) ==
LOC: EDUNIT# 16:20 → ER 16:21
DX: I71.4 Abdominal aortic aneurysm, without rupture (principal); I10 Essential (primary) hypertension; E78.00 Pure hypercholesterolemia, unspecified; K21.9 Gastro-esophageal reflux disease without esophagitis; F41.9 Anxiety disorder, unspecified; F17.210 Nicotine dependence, cigarettes, uncomplicated; Z90.710 Acquired absence of both cervix and uterus; Z87.19 Personal history of other diseases of the digestive system; Z79.82 Long term (current) use of aspirin; Z79.02 Long term (current) use of antithrombotics/antiplatelets; Z79.52 Long term (current) use of systemic steroids
CPT/HCPCS: 36415; 71045; 71275; 74174; 80053; 81000; 83605; 85025; 85610; 85730; 87040; 87088

== ENCOUNTER → 2019-06-03 | Outpatient (CLI) | payer OTHER ==
[~2019-06-03] MED LIST changes: +AMOX-358 PO; +OMEP-280 PO; -OMEP20CA13 PO; +OXYC-199 PO
--- NOTE | 2019-06-03 14:05 | Diagnostic Imaging Report ---
INDICATION: Low-back pain. Time of exam 1:09 p.m. COMPARISON: No prior studies are available for comparison. FINDINGS: Curvature and alignment of the lumbar spine is normal. Vertebral body heights are well maintained. No acute compression fracture is seen. Generalized degenerative disc disease with variable disc space narrowing is noted. There appears to be a stent in the abdominal aorta. IMPRESSION: Lumbar spondylosis. No acute bony abnormality is detected. Dictated by: Dictated on workstation # [id number]
--- NOTE | 2019-06-03 14:15 | Diagnostic Imaging Report ---
INDICATION: Low back pain. TIME OF EXAMINATION: 1:10 PM. TECHNIQUE: Multiple views of the sacrum and coccyx were obtained. FINDINGS: The sacrococcygeal alignment appears to be normal. No definite fractures are seen. The sacral arcuate lines are intact. The SI joints are symmetric. IMPRESSION: No acute bony abnormality is detected. Dictated by: Dictated on workstation # [id number]
== END ==
LOC: RAD 12:49
PROVIDERS: ATTEND Nurse Practitioner
DX: M47.816 Spondylosis without myelopathy or radiculopathy, lumbar region (principal)
CPT/HCPCS: 72100; 72220

== ENCOUNTER 2019-06-05 14:28 | Emergency (ER) | payer OTHER ==
[~2019-06-05] VITALS: Ht 157 cm; Wt 59.1 kg
[~2019-06-05 14:28] MED LIST changes: -AMOX-358 PO; -OXYC-199 PO
[2019-06-05 15:26] LABS: BASOPHILS % (AUTO) 0 % (0-10); EOSINOPHILS # (AUTO) 0.1 10^3/uL (0.0-0.3); EOSINOPHILS % (AUTO) 1 % (0-10); HEMATOCRIT 40 % (35-52); HEMOGLOBIN 13.6 G/DL (11.5-16.0); LYMPHOCYTES # (AUTO) 1.5 X 10^3 (1.0-4.0); LYMPHOCYTES % (AUTO) 12 % (12-44); MEAN CORPUSCULAR HEMOGLOBIN 32 PG (25-34); MEAN CORPUSCULAR HGB CONC 34 G/DL (32-36); MEAN CORPUSCULAR VOLUME 94 FL (80-99); MEAN PLATELET VOLUME 11.2 FL (7.4-10.4); MONOCYTES # (AUTO) 0.8 X 10^3 (0.0-1.0); MONOCYTES % (AUTO) 6 % (0-12); NEUTROPHILS # (AUTO) 10.3 X 10^3 (1.8-7.8); NEUTROPHILS % (AUTO) 82 % (42-75); PLATELET COUNT 188 10^3/uL (130-400); WHITE BLOOD COUNT 12.6 10^3/uL (4.3-11.0)
[2019-06-05 15:27] LABS: BILIRUBIN,URINE NEGATIVE (NEGATIVE); CLARITY,URINE CLEAR; COLOR,URINE YELLOW; GLUCOSE, URINE (UA) NEGATIVE (NEGATIVE); KETONES,URINE NEGATIVE (NEGATIVE); LEUKOCYTE ESTERASE ,URINE 1+ (NEGATIVE); NITRITE,URINE NEGATIVE (NEGATIVE); PH,URINE 5 (5-9); PROTEIN,URINE NEGATIVE (NEGATIVE)
--- NOTE | 2019-06-05 15:27 | ED Abdominal Pain ---
General Chief Complaint: Abdominal/GI Problems Stated Complaint: LOWER R ABD PAIN Nursing Triage Note: Pt ambulates to [facility] with c/o LLQ pain x 3 days. Pt states she hasn't take any meds for the pain but has been treated for IBS and diverticulitis without any relief. Pt reports no changes with . Sepsis Screen: No Definite Risk Source of Information: Patient Exam Limitations: No Limitations History of Present Illness Date Seen by Provider: Jun 05, 2019 Time Seen by Provider: 15:25 Initial Comments ER with left lower quadrant abdominal pain worse than usual for 3 days, present for several weeks. She recently had a stent placed in her aorta at [place] she states. She's been treated for IBS with Levsin for the past 2 weeks but denies improvement in pain. No dysuria no bowel changes. No fevers. Any bump in the car on the way here significantly worsened her pain Timing/Duration: 1-2 Days Severity/Quality: Moderate Location: LLQ Radiation: No Radiation Activities at Onset: None Associated Symptoms: Denies Symptoms Allergies and Home Medications Allergies Coded Allergies: No Known Drug Allergies (Unverified , 03/02/19) Home Medications Amoxicillin/Potassium Clav 1 Each Tablet, 1 EACH PO BID Prescribed by: FARZANEH RDZ on 06/05/191736 Aspirin 81 Mg Tablet., 81 MG PO DAILY, (Reported) Atorvastatin Calcium 10 Mg Tablet, 10 MG PO HS, (Reported) Clopidogrel Bisulfate 75 Mg Tablet, 75 MG PO DAILY, (Reported) Methylprednisolone 4 Mg Tab, 4 MG PO UD as directed per dose pack Prescribed by: RICCARDO KUO on 03/24/19 0619 Nicotine Polacrilex 4 Mg Lozenge, 4 MG BC QID, (Reported) Omeprazole 20 Mg Capsule.dr, 20 MG PO DAILY, (Reported) Oxycodone HCl/Acetaminophen 1 Each Tablet, 1 TAB PO Q4H PRN for PAIN-MODERATE Prescribed by: FARZANEH RDZ on 06/05/191736 Prednisone 20 Mg Tab, 40 MG PO DAILY Prescribed by: DEMETRIS HAINES on 03/22/19 0401 Patient Home Medication List Home Medication List Reviewed: Yes Review of Systems Review of Systems Constitutional: see HPI EENTM: No Symptoms Reported Respiratory: No Symptoms Reported Cardiovascular: No Symptoms Reported Gastrointestinal: See HPI, Abdominal Pain; Denies Constipated, Denies Diarrhea; Nausea Genitourinary: No Symptoms Reported Musculoskeletal: no symptoms reported Skin: no symptoms reported Psychiatric/Neurological: No Symptoms Reported Endocrine: No Symptoms Reported Hematologic/Lymphatic: No Symptoms Reported Past Koyvdkb-Imzeqg-Rkefxk Hx Patient Social History Alcohol Beverage of Choice: Beer Type Used: Cigarettes 2nd Hand Smoke Exposure: Yes Recent Foreign Travel: No Contact w/Someone Who Travel: No Recent Infectious Disease Expo: No Recent Hopitalizations: No Past Medical History Surgeries: Yes (PERIPHERAL ARTERY ANGIOGRAM 03/02/19) Hysterectomy Respiratory: No Currently Using CPAP: No Currently Using BIPAP: No Cardiac: Yes Aneurysm, High Cholesterol, Hypertension, Peripheral Vascular Neurological: No Genitourinary: No Gastrointestinal: Yes Gastroesophageal Reflux, Diverticulosis Musculoskeletal: No Endocrine: No HEENT: No Cancer: No Psychosocial: Yes Anxiety Integumentary: Yes Blood Disorders: No Adverse Reaction/Blood Tranf: No Physical Exam Vital Signs Vital Signs - First Documented 06/05/19 14:57 Temp 37.0 Pulse 108 Resp 18 B/P (MAP) 128/83 (98) Pulse Ox 98 O2 Delivery Room Air Capillary Refill : Less Than 3 Seconds Height/Weight/BMI Height: 5'2.00" Weight: 136lbs. 0.0oz. 61.253856no; 23.00 BMI Method:Stated General Appearance: WD/WN, no apparent distress HEENT: PERRL/EOMI, normal ENT inspection Respiratory: normal breath sounds, no respiratory distress, no accessory muscle use Gastrointestinal: normal bowel sounds, soft, tenderness Extremities: normal range of motion, non-tender Neurologic/Psychiatric: alert, normal mood/affect, oriented x 3 Skin: normal color, warm/dry Progress/Results/Core Measures Results/Orders Lab Results Laboratory Tests Test 06/05/19 15:20 06/05/19 15:22 Range/Units White Blood Count 12.6 H 4.3-11.0 10^3/uL Red Blood Count 4.27 L 4.35-5.85 10^6/uL Hemoglobin 13.6 11.5-16.0 G/DL Hematocrit 40 35-52 % Mean Corpuscular Volume 94 80-99 FL Mean Corpuscular Hemoglobin 32 25-34 PG Mean Corpuscular Hemoglobin Concent 34 32-36 G/DL Red Cell Distribution Width 15.0 H 10.0-14.5 % Platelet Count 188 130-400 10^3/uL Mean Platelet Volume 11.2 H 7.4-10.4 FL Neutrophils (%) (Auto) 82 H 42-75 % Lymphocytes (%) (Auto) 12 12-44 % Monocytes (%) (Auto) 6 0-12 % Eosinophils (%) (Auto) 1 0-10 % Basophils (%) (Auto) 0 0-10 % Neutrophils # (Auto) 10.3 H 1.8-7.8 X 10^3 Lymphocytes # (Auto) 1.5 1.0-4.0 X 10^3 Monocytes # (Auto) 0.8 0.0-1.0 X 10^3 Eosinophils # (Auto) 0.1 0.0-0.3 10^3/uL Basophils # (Auto) 0.0 0.0-0.1 10^3/uL Sodium Level 141 135-145 MMOL/L Potassium Level 3.7 3.6-5.0 MMOL/L Chloride Level 108 H 98-107 MMOL/L Carbon Dioxide Level 22 21-32 MMOL/L Anion Gap 11 5-14 MMOL/L Blood Urea Nitrogen 18 7-18 MG/DL Creatinine 0.73 0.60-1.30 MG/DL Estimat Glomerular Filtration Rate > 60 BUN/Creatinine Ratio 25 Glucose Level 173 H 70-105 MG/DL Calcium Level 9.3 8.5-10.1 MG/DL Corrected Calcium 9.3 8.5-10.1 MG/DL Total Bilirubin 0.5 0.1-1.0 MG/DL Aspartate Amino Transf (AST/SGOT) 13 5-34 U/L Alanine Aminotransferase (ALT/SGPT) 12 0-55 U/L Alkaline Phosphatase 115 40-136 U/L Total Protein 7.1 6.4-8.2 GM/DL Albumin 4.0 3.2-4.5 GM/DL Urine Color YELLOW Urine Clarity CLEAR Urine pH 5 5-9 Urine Specific [place] 1.020 1.016-1.022 Urine Protein NEGATIVE NEGATIVE Urine Glucose (UA) NEGATIVE NEGATIVE Urine Ketones NEGATIVE NEGATIVE Urine Nitrite NEGATIVE NEGATIVE Urine Bilirubin NEGATIVE NEGATIVE Urine Urobilinogen NORMAL NORMAL MG/DL Urine Leukocyte Esterase 1+ H NEGATIVE Urine RBC (Auto) NEGATIVE NEGATIVE Urine RBC NONE /HPF Urine WBC 2-5 /HPF Urine Squamous Epithelial Cells 2-5 /HPF Urine Crystals NONE /LPF Urine Bacteria FEW H /HPF Urine Casts NONE /LPF Urine Mucus MODERATE H /LPF Urine Culture Indicated YES My Orders Orders - FARZANEH RDZ GUE[employer]ATIONS OFFICER Cbc With Automated Diff (06/05/19 15:08) Comprehensive Metabolic Panel (06/05/19 15:08) Ua Culture If Indicated (06/05/19 15:08) Ed Iv/Invasive Line Start (06/05/19 15:08) Ct Abdomen/Pelvis W Wo (06/05/19 15:23) Ketorolac Injection (Toradol Injection) (06/05/19 15:30) Fentanyl Injection (Sublimaze Injection (06/05/19 15:30) Ondansetron Injection (Zofran Injectio (06/05/19 15:30) Urine Culture (06/05/19 15:22) Iohexol Injection (Omnipaque 350 Mg/Ml 1 (06/05/19 16:15) Received Contrast (Hold Metformin- Contr (06/05/19 16:15) Sodium Chloride Flush (Catheter Flush Sy (06/05/19 16:15) Ns (Ivpb) (Sodium Chloride 0.9% Ivpb Bag (06/05/19 16:15) Amoxicillin/Clavulanate Tablet (Augmenti (06/05/19 17:45) Oxycodone/Apap 5/325mg Tablet (Percocet (06/05/19 17:45) Medications Given in ED Current Medications Medications Dose Ordered Sig/Siva Route Start Time Stop Time Status Last Admin Dose Admin Fentanyl Citrate 50 mcg ONCE ONCE IVP 06/05/19 15:30 06/05/19 15:31 DC 06/05/19 15:34 50 MCG Iohexol 100 ml ONCE ONCE IV 06/05/19 16:15 06/05/19 16:16 DC 06/05/19 16:29 74 ML Ketorolac Tromethamine 15 mg ONCE ONCE IVP 06/05/19 15:30 06/05/19 15:31 DC 06/05/19 15:34 15 MG Ondansetron HCl 4 mg ONCE ONCE IVP 06/05/19 15:30 06/05/19 15:31 DC 06/05/19 15:33 4 MG Sodium Chloride 10 ml NEEDED PRN IV 06/05/19 16:15 06/05/19 16:29 10 ML Sodium Chloride 100 ml ONCE ONCE IV 06/05/19 16:15 06/05/19 16:16 DC 06/05/19 16:29 80 ML Vital Signs/I&O 06/05/19 14:57 Temp 37.0 Pulse 108 Resp 18 B/P (MAP) 128/83 (98) Pulse Ox 98 O2 Delivery Room Air Blood Pressure Mean: 98 POS Diagnostic Imaging Diagonstic Imaging: CT Comments NAME: LEROY TERRAZAS [facility] REC#: [id number] PT STATUS: REG ER : 1965 PHYSICIAN: FARZANEH RDZ GUE[employer]ATIONS OFFICER ADMIT DATE: 06/05/19/ER Draft POSDate of Exam:06/05/19 CT ABDOMEN/PELVIS W WO PROCEDURE: CT abdomen and pelvis with and without contrast. TECHNIQUE: Precontrast acquisitions were acquired through the abdomen and pelvis. Multiple contiguous axial images were obtained through the abdomen and pelvis after the administration of intravenous contrast. Auto Exposure Controls were utilized during the CT exam to meet ALARA standards for radiation dose reduction. DATE: June 05, 2019. COMPARISON: CT chest, abdomen and pelvis, April 30, 2019. INDICATION: 54-year-old female, left lower abdominal pain for two days. FINDINGS: The visualized portions of the lung bases are clear. The heart is not enlarged. There is no pericardial effusion. The liver is normal in size and contour. There is no identified liver lesion. The main, right and left portal veins are patent. The gallbladder is unremarkable. There is no biliary ductal dilation. The main pancreatic duct is not abnormally dilated. Unremarkable appearance of the pancreatic parenchyma. The spleen is normal in size. There are accessory splenules on axial image 25. The left adrenal gland is unremarkable in appearance. There is a low-attenuation right adrenal nodule on axial image 21, measuring up to 3.0 cm in size. Internal attenuation on the noncontrast portion of the study measures -1 Hounsfield units. This is diagnostic for an adrenal adenoma. Unremarkable appearance of the renal parenchyma. The urinary collecting systems are not distended. There is no identified renal or ureteral stone. Urinary bladder is unremarkable. The uterus is not seen and may be surgically absent. There is diverticulosis. There is wall thickening and inflammatory stranding at the level of the proximal sigmoid colon in an area of diverticulosis most consistent with acute diverticulitis. There is no identified adjacent pericolonic lymph node. The appendix is well seen on axial image 52 and adjacent sequential images. The appendix is unremarkable. There is no free intraperitoneal air. There is no drainable fluid collection. There is no free pelvic fluid. There are extensive atherosclerotic calcifications. There is an abdominal aortic stent graft which is patent. There is an abdominal aortic aneurysm sac. There is a retroaortic left renal vein. There is no identified abnormally enlarged lymph node in the abdomen or pelvis which specifically meats CT size criteria for adenopathy. There is no identified acute bony abnormality. IMPRESSION: CT abdomen and pelvis: 1. Findings compatible with acute diverticulitis at the level of the proximal sigmoid colon without evidence of perforation or abscess. 2. Benign right adrenal adenoma. 3. Extensive atherosclerotic calcifications. Dictated on workstation # [id number] Dict: 06/05/19 1646 Trans: 06/05/19 1701 PJE [id number] Interpreted by: ZEUS BECK MD Electronically signed by: Departure Impression Primary Impression: Acute diverticulitis Disposition: HOME, SELF-CARE Condition: Stable Departure-Patient Inst. Decision time for Depature: 17:36 Referrals: MELLISA CURIEL MD (PCP/Family) Primary Care Physician Patient Instructions: Diverticulitis Add. Discharge Instructions: 1. Clear liquids for the next 24-48 hours. Return to ER for any concerns. Antibiotics and pain medication in the meantime. He would also be guy to take an [id number] Colace to keep from getting constipated. All discharge instructions reviewed with patient and/or family. Voiced understanding. Scripts Oxycodone HCl/Acetaminophen (Percocet 5-325 mg Tablet) 1 Each Tablet 1 TAB PO Q4H PRN for PAIN-MODERATE MDD 6 for 7 Days, #20 TAB Prov: FARZANEH RDZ APRN 06/05/19 Amoxicillin/Potassium Clav (Augmentin 875-125 Tablet) 1 Each Tablet 1 EACH PO BID, #14 TAB 0 Refills Prov: FARZANEH RDZ APRN 06/05/19 Copy Copies To 1: MELLISA CURIEL MD, PETER J APRN Jun 05, 2019 15:27 POS
[2019-06-05] MEDS ORDERED: fentaNYL INJECTION 100 MCG/2 ML AMP IVP ONE (15:30)
[2019-06-05] MEDS ORDERED: ONDANSETRON 4 MG/2 ML (SDV) Z0FRAN IVP ONE (15:30)
[2019-06-05] MEDS ORDERED: KETOROLAC 30 MG/ML VIAL IVP ONE (15:30)
[2019-06-05 15:33] LABS: BACTERIA,URINE FEW /HPF
[2019-06-05 15:47] LABS: ALANINE AMINOTRANSFERASE 12 U/L (0-55); ALKALINE PHOSPHATASE 115 U/L (40-136); BILIRUBIN,TOTAL 0.5 MG/DL (0.1-1.0); BUN/CREATININE RATIO 25; CALCIUM 9.3 MG/DL (8.5-10.1); CARBON DIOXIDE 22 MMOL/L (21-32); CHLORIDE 108 MMOL/L (98-107); CREATININE SERUM 0.73 MG/DL (0.60-1.30); GFR ESTIMATED > 60; GLUCOSE 173 MG/DL (70-105); POTASSIUM 3.7 MMOL/L (3.6-5.0); SODIUM 141 MMOL/L (135-145); TOTAL PROTEIN 7.1 GM/DL (6.4-8.2)
[2019-06-05] MEDS ORDERED: HOLD METFORMIN - RECEIVED CONTRAST 20 ML VIAL IV SCH (16:15)
[2019-06-05] MEDS ORDERED: CATHETER FLUSH 10 ML SYR IV PRN (16:15)
[2019-06-05] MEDS ORDERED: IOHEXOL 350 MG/ML 100 ML (OMNIPAQUE 350) VIAL IV ONE (16:15)
[2019-06-05] MEDS ORDERED: NS 100 ML (IVPB) BAG IV ONE (16:15)
--- NOTE | 2019-06-05 17:02 | Diagnostic Imaging Report ---
PROCEDURE: CT abdomen and pelvis with and without contrast. TECHNIQUE: Precontrast acquisitions were acquired through the abdomen and pelvis. Multiple contiguous axial images were obtained through the abdomen and pelvis after the administration of intravenous contrast. Auto Exposure Controls were utilized during the CT exam to meet ALARA standards for radiation dose reduction. DATE: June 05, 2019. COMPARISON: CT chest, abdomen and pelvis, April 30, 2019. INDICATION: 54-year-old female, left lower abdominal pain for two days. FINDINGS: The visualized portions of the lung bases are clear. The heart is not enlarged. There is no pericardial effusion. The liver is normal in size and contour. There is no identified liver lesion. The main, right and left portal veins are patent. The gallbladder is unremarkable. There is no biliary ductal dilation. The main pancreatic duct is not abnormally dilated. Unremarkable appearance of the pancreatic parenchyma. The spleen is normal in size. There are accessory splenules on axial image 25. The left adrenal gland is unremarkable in appearance. There is a low-attenuation right adrenal nodule on axial image 21, measuring up to 3.0 cm in size. Internal attenuation on the noncontrast portion of the study measures -1 Hounsfield units. This is diagnostic for an adrenal adenoma. Unremarkable appearance of the renal parenchyma. The urinary collecting systems are not distended. There is no identified renal or ureteral stone. Urinary bladder is unremarkable. The uterus is not seen and may be surgically absent. There is diverticulosis. There is wall thickening and inflammatory stranding at the level of the proximal sigmoid colon in an area of diverticulosis most consistent with acute diverticulitis. There is no identified adjacent pericolonic lymph node. The appendix is well seen on axial image 52 and adjacent sequential images. The appendix is unremarkable. There is no free intraperitoneal air. There is no drainable fluid collection. There is no free pelvic fluid. There are extensive atherosclerotic calcifications. There is an abdominal aortic stent graft which is patent. There is an abdominal aortic aneurysm sac. There is a retroaortic left renal vein. There is no identified abnormally enlarged lymph node in the abdomen or pelvis which specifically meats CT size criteria for adenopathy. There is no identified acute bony abnormality. IMPRESSION: CT abdomen and pelvis: 1. Findings compatible with acute diverticulitis at the level of the proximal sigmoid colon without evidence of perforation or abscess. 2. Benign right adrenal adenoma. 3. Extensive atherosclerotic calcifications. Dictated by: Dictated on workstation # [id number]
[2019-06-05] MEDS ORDERED: AMOX-358 PO (17:37)
[2019-06-05] MEDS ORDERED: OXYC-199 PO (17:37)
[2019-06-05] MEDS ORDERED: AUGMENTIN 875 MG TAB (AMOXICILLIN/CLAVULANATE) PO SCH (17:45)
[2019-06-05] MEDS ORDERED: oxyCODONE/APAP 5/325MG (PERCOCET 5) TABLET PO ONE (17:45)
[2019-06-05 17:59] VITALS: BP 132/80
--- OUTSIDE RECORDS SUMMARY | 2019-06-29 12:12 | XMS REPORT | Continuity of Care Document ---
Author Organization Unknown POS Address Unknown SP Phone Unavailable SP Allergies Active Description Code Type Severity POS Reaction Onset Reported/Identified POS to Patient Clinical Status POS Yes No Known Drug Allergies [id number] Drug SP Unknown N/A 03/02/2019 SP SP Medications There is no data. Problems Date Dx Coded Attending Type Code POS Diagnosed By POS 11/07/2016 BELÉN BROOKS DO Ot Z12.31 SP ENCNTR SCREEN MAMMOGRAM FOR MALIGNANT NE SP 11/07/2016 BELÉN BROOKS DO Ot Z12.31 SP ENCNTR SCREEN MAMMOGRAM FOR MALIGNANT NE SP 11/26/2018 BELÉN BROOKS DO Ot Z12.31 SP ENCNTR SCREEN MAMMOGRAM FOR MALIGNANT NE SP 11/26/2018 VEENA BERG, MELLISA Ojeda Ot Z12.3 1 SP SCREEN MAMMOGRAM FOR MALIGNANT NE SP 03/02/2019 Philippe FORBES MD Ot F17.210 SP NICOTINE DEPENDENCE, CIGARETTES, UNCOMPL SP 03/02/2019 Philippe FORBES MD Ot I10 SP (PRIMARY) HYPERTENSION SP 03/02/2019 Philippe FORBES MD Ot I71 .4 SP AORTIC ANEURYSM, WITHOUT RUPTU SP 03/02/2019 Philippe FORBES MD Ot I73 .9 SP VASCULAR DISEASE, UNSPECIFIED SP 03/02/2019 Philippe FORBES MD Ot K21 .9 SPESOPHAGEAL REFLUX DISEASE WITHOUT SP 03/02/2019 Philippe FORBES MD Ot Z79.02 SP SOLID STATE TESTER (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 SP 03/02/2019 Philippe FORBES MD Ot Z79 .1 SP TERM (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 OF NON-STEROIDAL SP 03/02/2019 Philippe FORBES MD Ot Z79.82 SP FPC (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 OF ASPIRIN SP 03/02/2019 Philippe FORBES MD Ot Z79.899 SP OTHER FPC (CURRENT) DRUG THERAPY SP 03/02/2019 Philippe FORBES MD Ot Z82.49 SP FAMILY HX OF ISCHEM HEART DIS AND OTH DI SP 03/02/2019 Philippe FORBES MD Ot Z83 .3 SP HISTORY OF DIABETES MELLITUS SP 03/02/2019 Philippe FORBES MD Ot 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 03/11/2019 Philippe FORBES MD Ot F17.210 SP NICOTINE DEPENDENCE, CIGARETTES, UNCOMPL SP 03/11/2019 Philippe FORBES MD Ot I10 SP (PRIMARY) HYPERTENSION SP 03/11/2019 Philippe FORBES MD Ot I71 .4 SP AORTIC ANEURYSM, WITHOUT RUPTU SP 03/11/2019 Philippe FORBES MD Ot I73 .9 SP VASCULAR DISEASE, UNSPECIFIED SP 03/11/2019 Philippe FORBES MD Ot K21 .9 SPESOPHAGEAL REFLUX DISEASE WITHOUT SP 03/11/2019 Philippe FORBES MD Ot Z79.02 SP FPC (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 SP 03/11/2019 Philippe FORBES MD Ot Z79 .1 SP TERM (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 OF NON-STEROIDAL SP 03/11/2019 Philippe FORBES MD Ot Z79.82 SP FPC (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 OF ASPIRIN SP 03/11/2019 Philippe FORBES MD Ot Z79.899 SP OTHER FPC (CURRENT) DRUG THERAPY SP 03/11/2019 Philippe FORBES MD Ot Z82.49 SP FAMILY HX OF ISCHEM HEART DIS AND OTH DI SP 03/11/2019 Philippe FORBES MD Ot Z83 .3 SP HISTORY OF DIABETES MELLITUS SP 03/11/2019 Philippe FORBES MD Ot 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 03/13/2019 Philippe FORBES MD Ot F17.210 SP NICOTINE DEPENDENCE, CIGARETTES, UNCOMPL SP 03/13/2019 Philippe FORBES MD Ot I10 SP (PRIMARY) HYPERTENSION SP 03/13/2019 ANDREI BERG, Philippe VIDAL Ot I71 .4 SP AORTIC ANEURYSM, WITHOUT RUPTU SP 03/13/2019 ANDREI BERG, Philippe VIDAL Ot I73 .9 SP VASCULAR DISEASE, UNSPECIFIED SP 03/13/2019 Philippe FORBES MD Ot K21 .9 SPESOPHAGEAL REFLUX DISEASE WITHOUT SP 03/13/2019 Philippe FORBES MD Ot Z79.02 SP FPC (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 SP 03/13/2019 Philippe FORBES MD Ot Z79 .1 SP TERM (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 OF NON-STEROIDAL SP 03/13/2019 Philippe FORBES MD Ot Z79.82 SP SOLID STATE TESTER (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 OF ASPIRIN SP 03/13/2019 Philippe FORBES MD Ot Z79.899 SP OTHER FPC (CURRENT) DRUG THERAPY SP 03/13/2019 Philippe FORBES MD Ot Z82.49 SP FAMILY HX OF ISCHEM HEART DIS AND OTH DI SP 03/13/2019 Philippe FORBES MD Ot Z83 .3 SP HISTORY OF DIABETES MELLITUS SP 03/13/2019 Philippe FORBES MD Ot 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 03/14/2019 Philippe FORBES MD Ot F17.210 SP NICOTINE DEPENDENCE, CIGARETTES, UNCOMPL SP 03/14/2019 Philippe FORBES MD Ot I10 SP (PRIMARY) HYPERTENSION SP 03/14/2019 Philippe FORBES MD Ot I71 .4 SP AORTIC ANEURYSM, WITHOUT RUPTU SP 03/14/2019 Philippe FORBES MD Ot I73 .9 SP VASCULAR DISEASE, UNSPECIFIED SP 03/14/2019 Philippe FORBES MD Ot K21 .9 SPESOPHAGEAL REFLUX DISEASE WITHOUT SP 03/14/2019 Philippe FORBES MD Ot Z79.02 SP FPC (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 SP 03/14/2019 Philippe FORBES MD Ot Z79 .1 SP TERM (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 OF NON-STEROIDAL SP 03/14/2019 ANDREI BERG, Philippe VIDAL Ot Z79.82 SP SOLID STATE TESTER (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 OF ASPIRIN SP 03/14/2019 ANDREI BERG, Philippe VIDAL Ot Z79.899 SP OTHER FPC (CURRENT) DRUG THERAPY SP 03/14/2019 ANDREI BERG, Philippe VIDAL Ot Z82.49 SP FAMILY HX OF ISCHEM HEART DIS AND OTH DI SP 03/14/2019 ANDREI BERG, Philippe VIDAL Ot Z83 .3 SP HISTORY OF DIABETES MELLITUS SP 03/14/2019 Philippe FORBES MD Ot 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 03/22/2019 ZAKI DO, DEMETRIS K Ot E78.00 SP HYPERCHOLESTEROLEMIA, UNSPECIFIED SP 03/22/2019 ZAKI DO, DEMETRIS K Ot F17.210 SP DEPENDENCE, CIGARETTES, UNCOMPL SP 03/22/2019 ZAKI DO, DEMETRIS K Ot F41.9 SP DISORDER, UNSPECIFIED SP 03/22/2019 ZAKI DO, DEMETRIS K Ot I10 SP (PRIMARY) HYPERTENSION SP 03/22/2019 ZAKI DO, DEMETRIS K Ot I73.9 SP VASCULAR DISEASE, UNSPECIFIED SP 03/22/2019 ZAKI DO, DEMETRIS K Ot K21.9 SPESOPHAGEAL REFLUX DISEASE WITHOUT SP 03/22/2019 ZAKI DO, DEMETRIS K Ot L29.9 SP UNSPECIFIED SP 03/22/2019 ZAKI DO, DEMETRIS K Ot L50.9 SP UNSPECIFIED SP 03/22/2019 ZAKI DO, DEMETRIS K Ot Z79.02 SP TERM (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 SP 03/22/2019 ZAKI DO, DEMETRIS K Ot Z79.82 SP TERM (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 OF ASPIRIN SP 03/22/2019 ZAKI DO, DMEETRIS K Ot Z87.19 SP HISTORY OF OTHER DISEASES OF TH SP 03/22/2019 ZAKI DO DEMETRIS K Ot Z90.710 SP ABSENCE OF BOTH CERVIX AND UTER SP 03/24/2019 BELÉN BROOKS DO Ot Z12.31 SP ENCNTR SCREEN MAMMOGRAM FOR MALIGNANT NE SP 03/24/2019 VEENA BERG, MELLISA Ojeda Ot Z12.3 1 SP SCREEN MAMMOGRAM FOR MALIGNANT NE SP 03/24/2019 [facility], DEMETRIS K Ot E78.00 SP HYPERCHOLESTEROLEMIA, UNSPECIFIED SP 03/24/2019 [facility], DEMETRIS K Ot F17.210 SP DEPENDENCE, CIGARETTES, UNCOMPL SP 03/24/2019 [facility], DEMETRIS K Ot F41.9 SP DISORDER, UNSPECIFIED SP 03/24/2019 [facility], DEMETRIS K Ot I10 SP (PRIMARY) HYPERTENSION SP 03/24/2019 [facility], DEMETRIS K Ot I73.9 SP VASCULAR DISEASE, UNSPECIFIED SP 03/24/2019 [facility], DEMETRIS K Ot K21.9 SPESOPHAGEAL REFLUX DISEASE WITHOUT SP 03/24/2019 [facility], DEMETRIS K Ot L29.9 SP UNSPECIFIED SP 03/24/2019 [facility], DEMETRIS K Ot L50.9 SP UNSPECIFIED SP 03/24/2019 [facility], DEMETRIS K Ot Z79.02 SP TERM (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 SP 03/24/2019 [facility], DEMETRIS K Ot Z79.82 SP TERM (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 OF ASPIRIN SP 03/24/2019 [facility], DEMETIRS K Ot Z87.19 SP HISTORY OF OTHER DISEASES OF TH SP 03/24/2019 [facility], DEMETRIS K Ot Z90.710 SP ABSENCE OF BOTH CERVIX AND UTER SP 03/24/2019 YVONNE BERG, RENETTA Campos Ot E78.00 SP PURE HYPERCHOLESTEROLEMIA, UNSPECIFIED SP 03/24/2019 YVONNE BERG, RENETTA Campos Ot F17.210 SP NICOTINE DEPENDENCE, CIGARETTES, UNCOMPL SP 03/24/2019 YVONNE BERG, RENETTA Campos Ot F41.9 SP ANXIETY DISORDER, UNSPECIFIED SP 03/24/2019 YVONNE BERG, RENETTA Campos Ot I10 SP ESSENTIAL (PRIMARY) HYPERTENSION SP 03/24/2019 YVONNE BERG, RENETTA Campos Ot I73.9 SP PERIPHERAL VASCULAR DISEASE, UNSPECIFIED SP 03/24/2019 YVONNE BERG, RENETTA Campos Ot K21.9 SP GASTRO-ESOPHAGEAL REFLUX DISEASE WITHOUT SP 03/24/2019 YVONNE BERG, RENETTA Campos Ot L29.9 SP PRURITUS, UNSPECIFIED SP 03/24/2019 YVONNE BERG, RENETTA Campos Ot L50.9 SP URTICARIA, UNSPECIFIED SP 03/24/2019 RENETTA RUSSELL MD Ot Z79.02 SP FPC (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 SP 03/24/2019 RENETTA RUSSELL MD T Ot Z79.82 SP SOLID STATE TESTER (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 OF ASPIRIN SP 03/24/2019 RENETTA RUSSELL MD Ot Z87.19 SP PERSONAL HISTORY OF OTHER DISEASES OF SP 03/24/2019 RENETTA RUSSELL MD Ot 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 03/26/2019 RENETTA RUSSELL MD Ot E78.00 SP PURE HYPERCHOLESTEROLEMIA, UNSPECIFIED SP 03/26/2019 RENETTA RUSSELL MD Ot F17.210 SP NICOTINE DEPENDENCE, CIGARETTES, UNCOMPL SP 03/26/2019 RENETTA RUSSELL MD Ot F41.9 SP ANXIETY DISORDER, UNSPECIFIED SP 03/26/2019 RENETTA RUSSELL MD Ot I10 SP ESSENTIAL (PRIMARY) HYPERTENSION SP 03/26/2019 RENETTA RUSSELL MD Ot I73.9 SP PERIPHERAL VASCULAR DISEASE, UNSPECIFIED SP 03/26/2019 RENETTA RUSSELL MD Ot K21.9 SP GASTRO-ESOPHAGEAL REFLUX DISEASE WITHOUT SP 03/26/2019 RENETTA RUSSELL MD Ot L29.9 SP PRURITUS, UNSPECIFIED SP 03/26/2019 RENETTA RUSSELL MD Ot L50.9 SP URTICARIA, UNSPECIFIED SP 03/26/2019 RENETTA RUSSELL MD T Ot Z79.02 SP FPC (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 SP 03/26/2019 RENETTA RUSSELL MD T Ot Z79.82 SP FPC (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 OF ASPIRIN SP 03/26/2019 RENETTA RUSSELL MD T Ot Z87.19 SP PERSONAL HISTORY OF OTHER DISEASES OF SP 03/26/2019 RENETTA RUSSELL MD Ot 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 05/04/2019 RENETTA RUSSELL MD Ot E78.00 SP PURE HYPERCHOLESTEROLEMIA, UNSPECIFIED SP 05/04/2019 RENETTA RUSSELL MD T Ot F17.210 SP NICOTINE DEPENDENCE, CIGARETTES, UNCOMPL SP 05/04/2019 RENETTA RUSSELL MD Ot F41.9 SP ANXIETY DISORDER, UNSPECIFIED SP 05/04/2019 RENETTA RUSSELL MD Ot I10 SP ESSENTIAL (PRIMARY) HYPERTENSION SP 05/04/2019 RENETTA RUSSELL MD Ot I71.4 SP ABDOMINAL AORTIC ANEURYSM, WITHOUT RUPTU SP 05/04/2019 RENETTA RUSSELL MD, Ot K21.9 SP GASTRO-ESOPHAGEAL REFLUX DISEASE WITHOUT SP 05/04/2019 RENETTA RUSSELL MD, Ot R10.32 SP LEFT LOWER QUADRANT PAIN SP 05/04/2019 RENETTA RUSSELL MD, Ot Z79.02 SP FPC (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 SP 05/04/2019 RENETTA RUSSELL MD Ot Z79.52 SP FPC (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 OF SYSTEMIC STER SP 05/04/2019 RENETTA RUSSELL MD Ot Z79.82 SP SOLID STATE TESTER (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 OF ASPIRIN SP 05/04/2019 RENETTA RUSSELL MD, Ot Z87.19 SP PERSONAL HISTORY OF OTHER DISEASES OF SP 05/04/2019 RENETTA RUSSELL MD Ot 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 06/09/2019 PERI MARINO APRN Ot M47.816 SP SPONDYLOSIS W/O MYELOPATHY OR RADICULOPA SP 06/09/2019 FARZANEH RDZ APRN Ot E78.00 SP PURE HYPERCHOLESTEROLEMIA, UNSPECIFIED SP 06/09/2019 FARZANEH RDZ APRN Ot F41 .9 SP DISORDER, UNSPECIFIED SP 06/09/2019 FARZANEH RDZ APRN Ot I10 SP (PRIMARY) HYPERTENSION SP 06/09/2019 FARZANEH RDZ APRN Ot K21 .9 SPESOPHAGEAL REFLUX DISEASE WITHOUT SP 06/09/2019 FARZANEH RDZ APRN Ot 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, PART UNSP, 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 06/09/2019 FARZANEH RDZ APRN Ot R10.32 SP LEFT LOWER QUADRANT PAIN SP 06/09/2019 FARZANEH RDZ APRN Ot Z77.22 SP CNTCT W AND EXPSR TO ENVIRON TOBACCO SMO SP 06/09/2019 FARZANEH RDZ APRN Ot Z79.02 SP SOLID STATE TESTER (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 SP 06/09/[address] FARZANEH RDZ APRN Ot Z79.52 SP FPC (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 OF SYSTEMIC STER SP 06/09/2019 FARZANEH RDZ APRN Ot Z79.82 SP FPC (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 OF ASPIRIN SP 06/09/2019 FARZANEH RDZ APRN Ot Z87.19 SP PERSONAL HISTORY OF OTHER DISEASES OF TH SP 06/09/2019 FARZANEH RDZ APRN Ot 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 Results Test Result Range POS [facility] - 03/02/19 12:42 POS Blood leukocytes automated count (number/volume) 11.8 10*3/uL SP 4.3-11.0 SP Blood erythrocytes automated count (number/volume) 5.17 10*6/uL SP 4.35-5.85 SP Venous blood hemoglobin measurement (mass/volume) 16.2 g/dL SP16.0 Blood hematocrit (volume fraction) 47 % 35-52 SP Automated erythrocyte mean corpuscular volume 91 [ foz_us] SP99 Automated erythrocyte mean corpuscular h emoglobin (mass per erythrocyte) SP 31 pg 25-34 SP Automated erythrocyte mean corpuscular h emoglobin concentration measurement SP 34 g/dL 32-36 SP Automated erythrocyte distribution width ratio 14. 7 % 10.0- SP Automated blood platelet count (count/volume) 204 10*3/uL SP400 Automated blood platelet mean volume measurement 11.5 [foz_us] SP 7.4-10.4 SP PT panel in platelet poor plasma by coag ulation assay - 03/02/19 12:42 POS Prothrombin time (PT) in platelet poor plasma by coagu lation assay SP s 12.2-14.7 SP INR in platelet poor plasma or blood by coagulation as say 0.9 SP 0.8-1.4 SP Activated partial thromboplastin time (a PTT) in platelet poor plasma POS assay - 03/02/19 12:42 Activated partial thromboplastin time (a PTT) in platelet poor plasma POS assay 33 s 24-35 SP Comprehensive metabolic panel - 03/02/19 12:42 POS Serum or plasma sodium measurement (moles/volume) 140 mmol/L SP 135-145 SP Serum or plasma potassium measurement (moles/volume) 3.5 mmol/L SP 3.6-5.0 SP Serum or plasma chloride measurement (moles/volume) 105 mmol/L SP 98-107 SP Carbon dioxide 22 mmol/L 21-32 SP Serum or plasma anion gap determination (moles/volume) 13 mmol/L SP 5-14 SP Serum or plasma urea nitrogen measurement (mass/volume ) 27 mg/dL SP 7-18 SP Serum or plasma creatinine measurement (mass/volume) 0.72 mg/dL SP 0.60-1.30 SP Serum or plasma urea nitrogen/creatinine mass ratio 38 NRG SP Serum or plasma creatinine measurement w ith calculation of estimated glomerular SP rate > NRG SP Serum or plasma glucose measurement (mass/volume) 120 mg/dL SP105 Serum or plasma calcium measurement (mass/volume) 9.7 mg/dL SP10.1 Serum or plasma total bilirubin measurement (mass/volu me) 0.8 mg/dL SP 0.1-1.0 SP Serum or plasma alkaline phosphatase asad surement (enzymatic activity/volume) SP 114 U/L 40-136 SP Serum or plasma aspartate aminotransfera se measurement (enzymatic SP 14 U/L 5-34 SP Serum or plasma alanine aminotransferase measurement (enzymatic activity/volume) SP 18 U/L 0-55 SP Serum or plasma protein measurement (mass/volume) 7.7 g/dL SP8.2 Serum or plasma albumin measurement (mass/volume) 4.1 g/dL SP4.5 CALCIUM CORRECTED 9.6 mg/dL 8.5-10.1 SP Methicillin resistant Staphylococcus aur eus (MRSA) screening culture - 03/02/19 POS Methicillin resistant Staphylococcus aureus (MRSA) scr eening culture POS NRG SP Complete blood count (CBC) with automate d white blood cell (WBC) differential - POS 03:13 Blood leukocytes automated count (number/volume) 13.0 10*3/uL POS 4.3-11.0 SP Blood erythrocytes automated count (number/volume) 5.33 10*6/uL SP 4.35-5.85 SP Venous blood hemoglobin measurement (mass/volume) 16.6 g/dL SP16.0 Blood hematocrit (volume fraction) 48 % 35-52 SP Automated erythrocyte mean corpuscular volume 91 [ foz_us] SP99 Automated erythrocyte mean corpuscular h emoglobin (mass per erythrocyte) SP 31 pg 25-34 SP Automated erythrocyte mean corpuscular h emoglobin concentration measurement SP 34 g/dL 32-36 SP Automated erythrocyte distribution width ratio 14. 9 % 10.0- SP Automated blood platelet count (count/volume) 255 10*3/uL SP400 Automated blood platelet mean volume measurement 11.5 [foz_us] SP 7.4-10.4 SP Automated blood neutrophils/100 leukocytes 60 % 42-75 SP Automated blood lymphocytes/100 leukocytes 33 % 12-44 SP Blood monocytes/100 leukocytes 5 % 0-12 SP Automated blood eosinophils/100 leukocytes 1 % 0-10 SP Automated blood basophils/100 leukocytes 0 % 0-10 SP Blood neutrophils automated count (number/volume) 7.8 10*3 SP7.8 Blood lymphocytes automated count (number/volume) 4.3 10*3 SP4.0 Blood monocytes automated count (number/volume) 0. 7 10*3 SP1.0 Automated eosinophil count 0.1 10*3/uL 0 .0-0.3 SP Automated blood basophil count (count/volume) 0.0 10*3/uL SP0.1 PT panel in platelet poor plasma by coag ulation assay - 03/22/19 03:13 POS Prothrombin time (PT) in platelet poor plasma by coagu lation assay SP s 12.2-14.7 SP INR in platelet poor plasma or blood by coagulation as say 0.9 SP 0.8-1.4 SP Activated partial thromboplastin time (a PTT) in platelet poor plasma POS assay - 03/22/19 03:13 Activated partial thromboplastin time (a PTT) in platelet poor plasma POS assay 32 s 24-35 SP Comprehensive metabolic panel - 03/22/19 03:13 POS Serum or plasma sodium measurement (moles/volume) 138 mmol/L SP 135-145 SP Serum or plasma potassium measurement (moles/volume) 4.1 mmol/L SP 3.6-5.0 SP Serum or plasma chloride measurement (moles/volume) 105 mmol/L SP 98-107 SP Carbon dioxide 19 mmol/L 21-32 SP Serum or plasma anion gap determination (moles/volume) 14 mmol/L SP 5-14 SP Serum or plasma urea nitrogen measurement (mass/volume ) 24 mg/dL SP 7-18 SP Serum or plasma creatinine measurement (mass/volume) 0.72 mg/dL SP 0.60-1.30 SP Serum or plasma urea nitrogen/creatinine mass ratio 33 NRG SP Serum or plasma creatinine measurement w ith calculation of estimated glomerular SP rate > NRG SP Serum or plasma glucose measurement (mass/volume) 136 mg/dL SP105 Serum or plasma calcium measurement (mass/volume) 9.5 mg/dL SP10.1 Serum or plasma total bilirubin measurement (mass/volu me) 0.7 mg/dL SP 0.1-1.0 SP Serum or plasma alkaline phosphatase asad surement (enzymatic activity/volume) SP 122 U/L 40-136 SP Serum or plasma aspartate aminotransfera se measurement (enzymatic SP 16 U/L 5-34 SP Serum or plasma alanine aminotransferase measurement (enzymatic activity/volume) SP 17 U/L 0-55 SP Serum or plasma protein measurement (mass/volume) 7.6 g/dL SP8.2 Serum or plasma albumin measurement (mass/volume) 4.1 g/dL SP4.5 CALCIUM CORRECTED 9.4 mg/dL 8.5-10.1 SP Complete blood count (CBC) with automate d white blood cell (WBC) differential - POS 04:55 Blood leukocytes automated count (number/volume) 14.1 10*3/uL POS 4.3-11.0 SP Blood erythrocytes automated count (number/volume) 4.86 10*6/uL SP 4.35-5.85 SP Venous blood hemoglobin measurement (mass/volume) 15.4 g/dL SP16.0 Blood hematocrit (volume fraction) 45 % 35-52 SP Automated erythrocyte mean corpuscular volume 92 [ foz_us] SP99 Automated erythrocyte mean corpuscular h emoglobin (mass per erythrocyte) SP 32 pg 25-34 SP Automated erythrocyte mean corpuscular h emoglobin concentration measurement SP 35 g/dL 32-36 SP Automated erythrocyte distribution width ratio 14. 9 % 10.0- SP Automated blood platelet count (count/volume) 217 10*3/uL SP400 Automated blood platelet mean volume measurement 11.6 [foz_us] SP 7.4-10.4 SP Automated blood neutrophils/100 leukocytes 63 % 42-75 SP Automated blood lymphocytes/100 leukocytes 29 % 12-44 SP Blood monocytes/100 leukocytes 7 % 0-12 SP Automated blood eosinophils/100 leukocytes 0 % 0-10 SP Automated blood basophils/100 leukocytes 0 % 0-10 SP Blood neutrophils automated count (number/volume) 9.0 10*3 SP7.8 Blood lymphocytes automated count (number/volume) 4.2 10*3 SP4.0 Blood monocytes automated count (number/volume) 1. 0 10*3 SP1.0 Automated eosinophil count 0.0 10*3/uL 0 .0-0.3 SP Automated blood basophil count (count/volume) 0.0 10*3/uL SP0.1 PT panel in platelet poor plasma by coag ulation assay - 03/24/19 04:55 POS Prothrombin time (PT) in platelet poor plasma by coagu lation assay SP s 12.2-14.7 SP INR in platelet poor plasma or blood by coagulation as say 1.0 SP 0.8-1.4 SP Activated partial thromboplastin time (a PTT) in platelet poor plasma POS assay - 03/24/19 04:55 Activated partial thromboplastin time (a PTT) in platelet poor plasma POS assay 29 s 24-35 SP Comprehensive metabolic panel - 03/24/19 04:55 POS Serum or plasma sodium measurement (moles/volume) 143 mmol/L SP 135-145 SP Serum or plasma potassium measurement (moles/volume) 3.6 mmol/L SP 3.6-5.0 SP Serum or plasma chloride measurement (moles/volume) 106 mmol/L SP 98-107 SP Carbon dioxide 24 mmol/L 21-32 SP Serum or plasma anion gap determination (moles/volume) 13 mmol/L SP 5-14 SP Serum or plasma urea nitrogen measurement (mass/volume ) 22 mg/dL SP 7-18 SP Serum or plasma creatinine measurement (mass/volume) 0.78 mg/dL SP 0.60-1.30 SP Serum or plasma urea nitrogen/creatinine mass ratio 28 NRG SP Serum or plasma creatinine measurement w ith calculation of estimated glomerular SP rate > NRG SP Serum or plasma glucose measurement (mass/volume) 105 mg/dL SP105 Serum or plasma calcium measurement (mass/volume) 9.7 mg/dL SP10.1 Serum or plasma total bilirubin measurement (mass/volu me) 0.6 mg/dL SP 0.1-1.0 SP Serum or plasma alkaline phosphatase asad surement (enzymatic activity/volume) SP 99 U/L 40-136 SP Serum or plasma aspartate aminotransfera se measurement (enzymatic SP 13 U/L 5-34 SP Serum or plasma alanine aminotransferase measurement (enzymatic activity/volume) SP 17 U/L 0-55 SP Serum or plasma protein measurement (mass/volume) 7.6 g/dL SP8.2 Serum or plasma albumin measurement (mass/volume) 4.1 g/dL SP4.5 CALCIUM CORRECTED 9.6 mg/dL 8.5-10.1 SP Magnesium - 03/24/19 04:55 POS Magnesium 2.2 mg/dL 1.6-2.4 SP Serum or plasma troponin i.cardiac measu rement (mass/volume) - 03/24/19 04:55 POS Serum or plasma troponin i.cardiac measurement (mass/v olume) < ng/mL POS <0.028 SP Myoglobin, serum - 03/24/19 04:55 POS Myoglobin, serum 31.7 ng/mL 10.0-92.0 SP Lipase - 03/24/19 04:55 POS Lipase 18 U/L 8-78 SP Manual absolute plasma cell count - 03/06 04:55 POS Blood monocytes/100 leukocytes 9 % NRG SP Manual blood segmented neutrophils/100 leukocytes 58 % NRG SP Manual blood lymphocytes/100 leukocytes 33 % NRG SP Complete blood count (CBC) with automate d white blood cell (WBC) differential - POS 16:50 Blood leukocytes automated count (number/volume) 11.0 10*3/uL POS 4.3-11.0 SP Blood erythrocytes automated count (number/volume) 4.57 10*6/uL SP 4.35-5.85 SP Venous blood hemoglobin measurement (mass/volume) 14.2 g/dL SP16.0 Blood hematocrit (volume fraction) 42 % 35-52 SP Automated erythrocyte mean corpuscular volume 92 [ foz_us] SP99 Automated erythrocyte mean corpuscular h emoglobin (mass per erythrocyte) SP 31 pg 25-34 SP Automated erythrocyte mean corpuscular h emoglobin concentration measurement SP 34 g/dL 32-36 SP Automated erythrocyte distribution width ratio 15. 1 % 10.0- SP Automated blood platelet count (count/volume) 202 10*3/uL SP400 Automated blood platelet mean volume measurement 11.4 [foz_us] SP 7.4-10.4 SP Automated blood neutrophils/100 leukocytes 75 % 42-75 SP Automated blood lymphocytes/100 leukocytes 17 % 12-44 SP Blood monocytes/100 leukocytes 8 % 0-12 SP Automated blood eosinophils/100 leukocytes 1 % 0-10 SP Automated blood basophils/100 leukocytes 0 % 0-10 SP Blood neutrophils automated count (number/volume) 8.2 10*3 SP7.8 Blood lymphocytes automated count (number/volume) 1.9 10*3 SP4.0 Blood monocytes automated count (number/volume) 0. 8 10*3 SP1.0 Automated eosinophil count 0.1 10*3/uL 0 .0-0.3 SP Automated blood basophil count (count/volume) 0.0 10*3/uL SP0.1 PT panel in platelet poor plasma by coag ulation assay - 04/30/19 16:50 POS Prothrombin time (PT) in platelet poor plasma by coagu lation assay SP s 12.2-14.7 SP INR in platelet poor plasma or blood by coagulation as say 1.0 SP 0.8-1.4 SP Activated partial thromboplastin time (a PTT) in platelet poor plasma POS assay - 04/30/19 16:50 Activated partial thromboplastin time (a PTT) in platelet poor plasma POS assay 32 s 24-35 SP Comprehensive metabolic panel - 04/30/19 16:50 POS Serum or plasma sodium measurement (moles/volume) 141 mmol/L SP 135-145 SP Serum or plasma potassium measurement (moles/volume) 3.3 mmol/L SP 3.6-5.0 SP Serum or plasma chloride measurement (moles/volume) 108 mmol/L SP 98-107 SP Carbon dioxide 25 mmol/L 21-32 SP Serum or plasma anion gap determination (moles/volume) 8 mmol/L SP 5-14 SP Serum or plasma urea nitrogen measurement (mass/volume ) 20 mg/dL SP 7-18 SP Serum or plasma creatinine measurement (mass/volume) 0.72 mg/dL SP 0.60-1.30 SP Serum or plasma urea nitrogen/creatinine mass ratio 28 NRG SP Serum or plasma creatinine measurement w ith calculation of estimated glomerular SP rate > NRG SP Serum or plasma glucose measurement (mass/volume) 113 mg/dL SP105 Serum or plasma calcium measurement (mass/volume) 9.5 mg/dL SP10.1 Serum or plasma total bilirubin measurement (mass/volu me) 0.5 mg/dL SP 0.1-1.0 SP Serum or plasma alkaline phosphatase asad surement (enzymatic activity/volume) SP 104 U/L 40-136 SP Serum or plasma aspartate aminotransfera se measurement (enzymatic SP 24 U/L 5-34 SP Serum or plasma alanine aminotransferase measurement (enzymatic activity/volume) SP 30 U/L 0-55 SP Serum or plasma protein measurement (mass/volume) 7.2 g/dL SP8.2 Serum or plasma albumin measurement (mass/volume) 4.2 g/dL SP4.5 CALCIUM CORRECTED 9.3 mg/dL 8.5-10.1 SP Blood lactic acid measurement (moles/vol ume) - 04/30/19 16:56 POS Blood lactic acid measurement (moles/volume) 1.15 mmol/L SP2.00 Bacterial blood culture - 04/30/19 16:56 POS Bacterial blood culture NG NRG SP Complete urinalysis with reflex to cultu re - 04/30/19 17:00 POS Urine color determination YELLOW NRG SP Urine clarity determination CLEAR NR G SP Urine pH measurement by test strip 5 5-9 SP Specific gravity of urine by test strip 1.010 1.016-1.022 SP Urine protein assay by test strip, semi-quantitative NEGATIVE SP NEGATIVE SP Urine glucose detection by automated test strip NE GATIVE SP Erythrocytes detection in urine sediment by light micr oscopy NEGATIVE SP NEGATIVE SP Urine ketones detection by automated test strip 2+ NEGATIVE SP Urine nitrite detection by test strip NEGATIVE NEGATIVE SP Urine total bilirubin detection by test strip NEGA TIVE SP Urine urobilinogen measurement by automated test strip (mass/volume) SP NORMAL SP Urine leukocyte esterase detection by dipstick 1+ NEGATIVE SP Automated urine sediment erythrocyte cou nt by microscopy (number/high power SP NONE NRG SP Automated urine sediment leukocyte count by microscopy (number/high power field) SP [HPF] NRG SP Bacteria detection in urine sediment by light microsco py NEGATIVE SP NRG SP Squamous epithelial cells detection in u rine sediment by light microscopy SP 2-5 NRG SP Crystals detection in urine sediment by light microsco py NONE SP NRG SP Casts detection in urine sediment by light microscopy NONE SP Mucus detection in urine sediment by light microscopy NEGATIVE SP NRG SP Complete urinalysis with reflex to culture CULTURE PENDING SP Bacterial urine culture - 04/30/19 17:00 POS Bacterial urine culture NG NRG SP Bacterial blood culture - 04/30/19 17:05 POS Bacterial blood culture NG NRG SP Complete blood count (CBC) with automate d white blood cell (WBC) differential - POS 15:20 Blood leukocytes automated count (number/volume) 12.6 10*3/uL POS 4.3-11.0 SP Blood erythrocytes automated count (number/volume) 4.27 10*6/uL SP 4.35-5.85 SP Venous blood hemoglobin measurement (mass/volume) 13.6 g/dL SP16.0 Blood hematocrit (volume fraction) 40 % 35-52 SP Automated erythrocyte mean corpuscular volume 94 [ foz_us] SP99 Automated erythrocyte mean corpuscular h emoglobin (mass per erythrocyte) SP 32 pg 25-34 SP Automated erythrocyte mean corpuscular h emoglobin concentration measurement SP 34 g/dL 32-36 SP Automated erythrocyte distribution width ratio 15. 0 % 10.0- SP Automated blood platelet count (count/volume) 188 10*3/uL SP400 Automated blood platelet mean volume measurement 11.2 [foz_us] SP 7.4-10.4 SP Automated blood neutrophils/100 leukocytes 82 % 42-75 SP Automated blood lymphocytes/100 leukocytes 12 % 12-44 SP Blood monocytes/100 leukocytes 6 % 0-12 SP Automated blood eosinophils/100 leukocytes 1 % 0-10 SP Automated blood basophils/100 leukocytes 0 % 0-10 SP Blood neutrophils automated count (number/volume) 10.3 10*3 SP7.8 Blood lymphocytes automated count (number/volume) 1.5 10*3 SP4.0 Blood monocytes automated count (number/volume) 0. 8 10*3 SP1.0 Automated eosinophil count 0.1 10*3/uL 0 .0-0.3 SP Automated blood basophil count (count/volume) 0.0 10*3/uL SP0.1 Comprehensive metabolic panel - 06/05/19 15:20 POS Serum or plasma sodium measurement (moles/volume) 141 mmol/L SP 135-145 SP Serum or plasma potassium measurement (moles/volume) 3.7 mmol/L SP 3.6-5.0 SP Serum or plasma chloride measurement (moles/volume) 108 mmol/L SP 98-107 SP Carbon dioxide 22 mmol/L 21-32 SP Serum or plasma anion gap determination (moles/volume) 11 mmol/L SP 5-14 SP Serum or plasma urea nitrogen measurement (mass/volume ) 18 mg/dL SP 7-18 SP Serum or plasma creatinine measurement (mass/volume) 0.73 mg/dL SP 0.60-1.30 SP Serum or plasma urea nitrogen/creatinine mass ratio 25 NRG SP Serum or plasma creatinine measurement w ith calculation of estimated glomerular SP rate > NRG SP Serum or plasma glucose measurement (mass/volume) 173 mg/dL SP105 Serum or plasma calcium measurement (mass/volume) 9.3 mg/dL SP10.1 Serum or plasma total bilirubin measurement (mass/volu me) 0.5 mg/dL SP 0.1-1.0 SP Serum or plasma alkaline phosphatase asad surement (enzymatic activity/volume) SP 115 U/L 40-136 SP Serum or plasma aspartate aminotransfera se measurement (enzymatic SP 13 U/L 5-34 SP Serum or plasma alanine aminotransferase measurement (enzymatic activity/volume) SP 12 U/L 0-55 SP Serum or plasma protein measurement (mass/volume) 7.1 g/dL SP8.2 Serum or plasma albumin measurement (mass/volume) 4.0 g/dL SP4.5 CALCIUM CORRECTED 9.3 mg/dL 8.5-10.1 SP Complete urinalysis with reflex to cultu re - 06/05/19 15:22 POS Urine color determination YELLOW NRG SP Urine clarity determination CLEAR NR G SP Urine pH measurement by test strip 5 5-9 SP Specific gravity of urine by test strip 1.020 1.016-1.022 SP Urine protein assay by test strip, semi-quantitative NEGATIVE SP NEGATIVE SP Urine glucose detection by automated test strip NE GATIVE SP Erythrocytes detection in urine sediment by light micr oscopy NEGATIVE SP NEGATIVE SP Urine ketones detection by automated test strip NE GATIVE SP Urine nitrite detection by test strip NEGATIVE NEGATIVE SP Urine total bilirubin detection by test strip NEGA TIVE SP Urine urobilinogen measurement by automated test strip (mass/volume) SP NORMAL SP Urine leukocyte esterase detection by dipstick 1+ NEGATIVE SP Automated urine sediment erythrocyte cou nt by microscopy (number/high power SP NONE NRG SP Automated urine sediment leukocyte count by microscopy (number/high power field) SP [HPF] NRG SP Bacteria detection in urine sediment by light microsco py FEW SP NRG SP Squamous epithelial cells detection in u rine sediment by light microscopy SP 2-5 NRG SP Crystals detection in urine sediment by light microsco py NONE SP NRG SP Casts detection in urine sediment by light microscopy NONE SP Mucus detection in urine sediment by light microscopy MODERATE SP NRG SP Complete urinalysis with reflex to culture YES NRG SP Bacterial urine culture - 06/05/19 15:22 POS Bacterial urine culture NG NRG SP Automated blood complete blood count (he mogram) panel - 06/16/19 09:03 POS Blood leukocytes automated count (number/volume) 8.3 10*3/uL SP 4.3-11.0 SP Blood erythrocytes automated count (number/volume) 4.87 10*6/uL SP 4.35-5.85 SP Venous blood hemoglobin measurement (mass/volume) 15.0 g/dL SP16.0 Blood hematocrit (volume fraction) 45 % 35-52 SP Automated erythrocyte mean corpuscular volume 93 [ foz_us] SP99 Automated erythrocyte mean corpuscular h emoglobin (mass per erythrocyte) SP 31 pg 25-34 SP Automated erythrocyte mean corpuscular h emoglobin concentration measurement SP 33 g/dL 32-36 SP Automated erythrocyte distribution width ratio 14. 9 % 10.0- SP Automated blood platelet count (count/volume) 214 10*3/uL SP400 Automated blood platelet mean volume measurement 11.1 [foz_us] SP 7.4-10.4 SP Comprehensive metabolic panel - 06/16/19 09:03 POS Serum or plasma sodium measurement (moles/volume) 141 mmol/L SP 135-145 SP Serum or plasma potassium measurement (moles/volume) 3.5 mmol/L SP 3.6-5.0 SP Serum or plasma chloride measurement (moles/volume) 106 mmol/L SP 98-107 SP Carbon dioxide 24 mmol/L 21-32 SP Serum or plasma anion gap determination (moles/volume) 11 mmol/L SP 5-14 SP Serum or plasma urea nitrogen measurement (mass/volume ) 16 mg/dL SP 7-18 SP Serum or plasma creatinine measurement (mass/volume) 0.69 mg/dL SP 0.60-1.30 SP Serum or plasma urea nitrogen/creatinine mass ratio 23 NRG SP Serum or plasma creatinine measurement w ith calculation of estimated glomerular SP rate > NRG SP Serum or plasma glucose measurement (mass/volume) 119 mg/dL SP105 Serum or plasma calcium measurement (mass/volume) 9.8 mg/dL SP10.1 Serum or plasma total bilirubin measurement (mass/volu me) 0.7 mg/dL SP 0.1-1.0 SP Serum or plasma alkaline phosphatase asad surement (enzymatic activity/volume) SP 107 U/L 40-136 SP Serum or plasma aspartate aminotransfera se measurement (enzymatic SP 20 U/L 5-34 SP Serum or plasma alanine aminotransferase measurement (enzymatic activity/volume) SP 18 U/L 0-55 SP Serum or plasma protein measurement (mass/volume) 7.7 g/dL SP8.2 Serum or plasma albumin measurement (mass/volume) 4.4 g/dL SP4.5 CALCIUM CORRECTED 9.5 mg/dL 8.5-10.1 SP Automated blood complete blood count (he mogram) panel - 06/25/19 06:49 POS Blood leukocytes automated count (number/volume) 6.1 10*3/uL SP 4.3-11.0 SP Blood erythrocytes automated count (number/volume) 4.61 10*6/uL SP 4.35-5.85 SP Venous blood hemoglobin measurement (mass/volume) 14.3 g/dL SP16.0 Blood hematocrit (volume fraction) 44 % 35-52 SP Automated erythrocyte mean corpuscular volume 95 [ foz_us] SP99 Automated erythrocyte mean corpuscular h emoglobin (mass per erythrocyte) SP 31 pg 25-34 SP Automated erythrocyte mean corpuscular h emoglobin concentration measurement SP 33 g/dL 32-36 SP Automated erythrocyte distribution width ratio 14. 8 % 10.0- SP Automated blood platelet count (count/volume) 193 10*3/uL SP400 Automated blood platelet mean volume measurement 11.6 [foz_us] SP 7.4-10.4 SP Comprehensive metabolic panel - 06/25/19 06:49 POS Serum or plasma sodium measurement (moles/volume) 141 mmol/L SP 135-145 SP Serum or plasma potassium measurement (moles/volume) 3.8 mmol/L SP 3.6-5.0 SP Serum or plasma chloride measurement (moles/volume) 106 mmol/L SP 98-107 SP Carbon dioxide 25 mmol/L 21-32 SP Serum or plasma anion gap determination (moles/volume) 10 mmol/L SP 5-14 SP Serum or plasma urea nitrogen measurement (mass/volume ) 20 mg/dL SP 7-18 SP Serum or plasma creatinine measurement (mass/volume) 0.69 mg/dL SP 0.60-1.30 SP Serum or plasma urea nitrogen/creatinine mass ratio 29 NRG SP Serum or plasma creatinine measurement w ith calculation of estimated glomerular SP rate > NRG SP Serum or plasma glucose measurement (mass/volume) 99 mg/dL SP105 Serum or plasma calcium measurement (mass/volume) 9.6 mg/dL SP10.1 Serum or plasma total bilirubin measurement (mass/volu me) 0.7 mg/dL SP 0.1-1.0 SP Serum or plasma alkaline phosphatase asad surement (enzymatic activity/volume) SP 98 U/L 40-136 SP Serum or plasma aspartate aminotransfera se measurement (enzymatic SP 15 U/L 5-34 SP Serum or plasma alanine aminotransferase measurement (enzymatic activity/volume) SP 18 U/L 0-55 SP Serum or plasma protein measurement (mass/volume) 7.2 g/dL SP8.2 Serum or plasma albumin measurement (mass/volume) 4.2 g/dL SP4.5 CALCIUM CORRECTED 9.4 mg/dL 8.5-10.1 SP Lipase - 06/25/19 06:49 POS Lipase 9 U/L 8-78 SP Encounters ACCT No. Visit Date/Time Discharge Status POS Pt. 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 PAIN SP [id number] 04/30/2019 16:21:00 21:38:00 SP DIS Outpatient RENETTA RUSSELL MD [facility] ER DX W/ DIVERTICULITIS /ABD SP PAIN [id number] 03/24/2019 04:46:00 07:32:00 SP DIS Emergency RENETTA RUSSELL MD [facility] ER POSS ALLERGIC RXN SP [id number] 03/22/2019 03:04:00 04:13:00 SP DIS Emergency DEMETRIS HAINES DO [facility] ER HIVES SP [id number] 03/02/2019 11:50:00 21:25:00 SP DIS Outpatient Philippe FORBES MD [facility] CATH PAD SP [id number] 11/26/2018 07:59:00 23:59:59 SP CLS Outpatient MELLISA CURIEL MD [facility] RAD SCREENING SP [id number] 11/06/2016 08:49:00 23:59:59 SP CLS Outpatient BELÉN BROOKS DO [facility] RAD ENCOUNTER FOR SCREEN ING MAMMO SP MALIGNANT OF [facility]
== END 2019-06-05 18:00 | disposition home or self-care (01) ==
LOC: EDUNIT# 14:28 → ER 14:29
DX: K57.92 Diverticulitis of intestine, part unspecified, without perforation or abscess without bleeding (principal); I10 Essential (primary) hypertension; E78.00 Pure hypercholesterolemia, unspecified; K21.9 Gastro-esophageal reflux disease without esophagitis; F41.9 Anxiety disorder, unspecified; Z87.19 Personal history of other diseases of the digestive system; Z79.82 Long term (current) use of aspirin; Z79.02 Long term (current) use of antithrombotics/antiplatelets; Z79.52 Long term (current) use of systemic steroids; Z77.22 Contact with and (suspected) exposure to environmental tobacco smoke (acute) (chronic); Z90.710 Acquired absence of both cervix and uterus
CPT/HCPCS: 36415; 74178; 80053; 81000; 85025; 87088; 96374; 96375

== ENCOUNTER → 2019-06-16 | Outpatient (CLI) | payer OTHER ==
[~2019-06-16] MED LIST changes: +AMOX-358 PO; +CATHETER FLUSH 10 ML SYR IV PRN; +HOLD METFORMIN - RECEIVED CONTRAST 20 ML VIAL IV SCH; +IOHEXOL 350 MG/ML 100 ML (OMNIPAQUE 350) VIAL IV ONE; +NS 100 ML (IVPB) BAG IV ONE; -OMEP-280 PO; +OMEP20CA13 PO; +OXYC-199 PO
[2019-06-16 09:09] LABS: MEAN PLATELET VOLUME 11.1 FL (7.4-10.4); RED CELL DISTRIBUTION WIDTH 14.9 % (10.0-14.5); WHITE BLOOD COUNT 8.3 10^3/uL (4.3-11.0)
[2019-06-16 09:33] LABS: ALANINE AMINOTRANSFERASE 18 U/L (0-55); ALBUMIN 4.4 GM/DL (3.2-4.5); ALKALINE PHOSPHATASE 107 U/L (40-136); BILIRUBIN,TOTAL 0.7 MG/DL (0.1-1.0); BUN/CREATININE RATIO 23; CALCIUM 9.8 MG/DL (8.5-10.1); CARBON DIOXIDE 24 MMOL/L (21-32); CHLORIDE 106 MMOL/L (98-107); CREATININE SERUM 0.69 MG/DL (0.60-1.30); GFR ESTIMATED > 60; GLUCOSE 119 MG/DL (70-105); POTASSIUM 3.5 MMOL/L (3.6-5.0); SODIUM 141 MMOL/L (135-145); TOTAL PROTEIN 7.7 GM/DL (6.4-8.2)
--- NOTE | 2019-06-16 11:20 | Diagnostic Imaging Report ---
CLINICAL INDICATION: Patient with low back pain and left-sided tingling. EXAM: Axial CT scan of the lumbar spine performed without IV contrast. Sagittal and coronal reformatted images are created. Auto Exposure Controls were utilized during the CT exam to meet ALARA standards for radiation dose reduction. COMPARISON: X-ray of the lumbar spine dated 06/03/2019. FINDINGS: There is no acute lumbar spine fracture or dislocation. There are small vertebral body spurs. Distal abdominal aortic stent graft is seen. There is no significant paraspinal soft tissue abnormality. There is mild left curvature of the lumbar spine. There is mild sclerosis of the sacroiliac joints. L1-L2: Unremarkable. L2-L3: There is a mild diffuse disc bulge with mild loss of intervertebral disc height. There is no significant central spinal canal or neural foramen narrowing. L3-L4: There is a diffuse disc bulge with mild loss of intervertebral disc height. There is mild impression upon the thecal sac anteriorly. There is no significant neural foramen narrowing. L4-L5: There is no significant central spinal canal or neural foramen narrowing. L5-S1: There is no significant central spinal canal or neural foramen narrowing. 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 Dictated by: Dictated on workstation # [id number]
--- NOTE | 2019-06-16 11:30 | Diagnostic Imaging Report ---
EXAMINATION: CT Abdomen and Pelvis with intravenous contrast. TECHNIQUE: Multiple contiguous axial images were obtained through the abdomen and pelvis after the uneventful administration of intravenous contrast. All CT scans use one or more of the following dose optimizing techniques: automated exposure control, MA and/or KvP adjustment based on a patient size and exam type, or iterative reconstruction. HISTORY: Left lower quadrant pain. COMPARISON: 06/05/2019 FINDINGS: Limited views of the lower thorax are unremarkable. The liver is normal without focal lesion. There is no biliary ductal dilation. Gallbladder is normal. Pancreas is normal. Spleen is normal. There is a stable 3 cm right adrenal adenoma. The kidneys are normal. There is no hydronephrosis. Urinary bladder is normal. Sigmoid diverticulitis has nearly completely resolved. No abscess or perforation. No free fluid or air. No abdominal or pelvic lymphadenopathy. There is severe atherosclerosis of the abdominal aorta with a stent present for management of severe stenosis of the infrarenal aorta. Stent is patent. There are no suspicious osseus lesions. IMPRESSION: 1. Near complete resolution of sigmoid colon diverticulitis. No abscess or perforation. 2. Stable 3 cm right adrenal adenoma. Dictated by: Dictated on workstation # [id number]
== END ==
LOC: RAD 08:54
PROVIDERS: ATTEND Physician Assistant
DX: K57.92 Diverticulitis of intestine, part unspecified, without perforation or abscess without bleeding (principal); D35.01 Benign neoplasm of right adrenal gland; M47.26 Other spondylosis with radiculopathy, lumbar region; M51.16 Intervertebral disc disorders with radiculopathy, lumbar region
CPT/HCPCS: 36415; 72131; 74177; 80053; 85027

== ENCOUNTER → 2019-06-25 | Outpatient (CLI) | payer OTHER ==
[~2019-06-25] MED LIST changes: -CATHETER FLUSH 10 ML SYR IV PRN; -HOLD METFORMIN - RECEIVED CONTRAST 20 ML VIAL IV SCH; -IOHEXOL 350 MG/ML 100 ML (OMNIPAQUE 350) VIAL IV ONE; -NS 100 ML (IVPB) BAG IV ONE
[2019-06-25 07:03] LABS: HEMOGLOBIN 14.3 G/DL (11.5-16.0); MEAN PLATELET VOLUME 11.6 FL (7.4-10.4); RED CELL DISTRIBUTION WIDTH 14.8 % (10.0-14.5); WHITE BLOOD COUNT 6.1 10^3/uL (4.3-11.0)
[2019-06-25 07:28] LABS: ALANINE AMINOTRANSFERASE 18 U/L (0-55); ALBUMIN 4.2 GM/DL (3.2-4.5); ALKALINE PHOSPHATASE 98 U/L (40-136); BILIRUBIN,TOTAL 0.7 MG/DL (0.1-1.0); BUN/CREATININE RATIO 29; CALCIUM 9.6 MG/DL (8.5-10.1); CARBON DIOXIDE 25 MMOL/L (21-32); CHLORIDE 106 MMOL/L (98-107); CREATININE SERUM 0.69 MG/DL (0.60-1.30); GFR ESTIMATED > 60; GLUCOSE 99 MG/DL (70-105); LIPASE 9 U/L (8-78); POTASSIUM 3.8 MMOL/L (3.6-5.0); SODIUM 141 MMOL/L (135-145); TOTAL PROTEIN 7.2 GM/DL (6.4-8.2)
--- NOTE | 2019-06-25 08:53 | Diagnostic Imaging Report ---
PROCEDURE: US Gallbladder. TECHNIQUE: Multiple real-time grayscale images were obtained over the right upper quadrant in various projections. INDICATION: Right upper quadrant pain. FINDINGS: The liver is normal in size at 12.5 cm. No discrete liver mass is detected. The portal vein is patent and shows normal direction of flow. Gallbladder is without stones or sludge. No wall thickening or biliary ductal dilatation is seen. The visualized pancreas is unremarkable. The right kidney is unremarkable. No calculi or hydronephrosis is detected. Suprarenal mass on the right is noted corresponding with patient's known right adrenal mass. There is no ascites. IMPRESSION: 1. No evidence of cholelithiasis or acute cholecystitis. 2. Right adrenal mass. Dictated by: Dictated on workstation # [id number]
== END ==
LOC: RAD 06:38
PROVIDERS: ATTEND Physician Assistant
DX: E27.8 Other specified disorders of adrenal gland (principal); R10.11 Right upper quadrant pain
CPT/HCPCS: 36415; 76705; 80053; 83690; 85027

== ENCOUNTER 2019-12-13 23:41 | Emergency (ER) | payer OTHER ==
[~2019-12-13] VITALS: Ht 172 cm; Wt 59.1 kg
[~2019-12-13 23:41] MED LIST changes: -OMEP20CA13 PO; +OMEP20CA18 PO
[2019-12-13] MEDS ORDERED: NITROGLYCERIN 0.4 MG SL TABS BTL 25'S SL ONE (23:50)
[2019-12-13] MEDS ORDERED: ASPIRIN 81 MG CHEW (CHILDREN'S ASA) ONE (23:50)
[2019-12-13] MEDS ORDERED: NS IV 1000 ML 1,000 ML IV SCH (23:58)
[2019-12-14] MEDS ORDERED: ASPIRIN 81 MG CHEW (CHILDREN'S ASA) PO ONE
[2019-12-14] MEDS: NITROGLYCERIN 0.4 MG SL TABS BTL 25'S SL PRN ×2 (00:04)
--- NOTE | 2019-12-14 00:08 | ED Abdominal Pain ---
General Chief Complaint: Cardiac/General Problems Stated Complaint: ABD PAIN, CP Source of Information: Patient Exam Limitations: No Limitations History of Present Illness Date Seen by Provider: December 13, 2019 Time Seen by Provider: 23:45 Initial Comments Patient presents ER by private conveyance from home with chief complaint that for several months now she's been having intermittent abdominal pain with some pain going into the middle of her chest. She says it feels like sore muscles. She also gets pain and heaviness and achiness in her arms and shoulders. She is on a statin. She's been worked up by Dr. Romero and is on Plavix with a history of a stent placed somewhere in her abdominal arteries. This was done at [facility]. She said that thought she might of had a AAA and took her to do a graft and bilateral femoral popliteal bypasses but all they ended up placing was a stent. This most current episode of abdominal pain, chest pain and started on Saturday, 3 days ago. She has not taken anything for the pain today. She does not take nitroglycerin. She says in the past she's tried opiates and that did not help. She is being worked up by Dr. Curiel her primary care doctor and he thought maybe her symptoms were caused by her gallbladder. Dr. Romero her threader operator did not feel that her heart or arteries were continuing to her pain symptoms and encourage her to follow-up with surgery. Dr. Sutton has an appointment with her today to discuss her symptoms and potentially taking her gallbladder out. She has had an ultrasound which did not reveal stones in her gallbladder but did reveal a diminished ejection fraction of 29%. Patient denies any fevers or chills. She said what concerned her tonight enough to come to the ER was because she started having some twitching in the muscles of her left cheek and she thought that might represent a stroke. She's having no numbness weakness slurred speech and facial asymmetry or other lateralizing deficits. No history of stroke. She is taking her medications as she is prescribed. Catheterization in February [address] Romero reveals patent bilateral renal arteries with suprarenal aorta be normal. Severe infrarenal distal abdominal aortic disease with aortic aneurysm. Patent bilateral common carotid and external iliac artery, common femoral artery. Mild diffuse disease bilaterally of the SFA and popliteal artery. At least 2-1/2 vessel runoff below the knee. Allergies and Home Medications Allergies Coded Allergies: No Known Drug Allergies (Unverified , 03/02/19) Home Medications Amoxicillin/Potassium Clav 1 Each Tablet, 1 EACH PO BID Prescribed by: FARZANEH RDZ on 06/05/191736 Aspirin 81 Mg Tablet.dr, 81 MG PO DAILY, (Reported) Atorvastatin Calcium 10 Mg Tablet, 10 MG PO HS, (Reported) Clopidogrel Bisulfate 75 Mg Tablet, 75 MG PO DAILY, (Reported) Methylprednisolone 4 Mg Tab, 4 MG PO UD as directed per dose pack Prescribed by: RICCARDO KUO on 03/24/19 0619 Nicotine Polacrilex 4 Mg Lozenge, 4 MG BC QID, (Reported) Omeprazole 20 Mg Capsule.dr, 20 MG PO DAILY, (Reported) Oxycodone HCl/Acetaminophen 1 Each Tablet, 1 TAB PO Q4H PRN for PAIN-MODERATE Prescribed by: FARZANEH RDZ on 06/05/191736 Prednisone 20 Mg Tab, 40 MG PO DAILY Prescribed by: DEMETRIS HAINES on 03/22/19 0401 Patient Home Medication List Home Medication List Reviewed: Yes Review of Systems Review of Systems Constitutional: No chills, No fever EENTM: No Blurred Vision, No Double Vision Respiratory: Denies Cough, Denies Shortness of Air Cardiovascular: Denies Chest Pain, Denies Edema Gastrointestinal: See HPI; Denies Abdomen Distended; Abdominal Pain; Denies Constipated, Denies Diarrhea, Denies Nausea, Denies Vomiting Genitourinary: Denies Burning, Denies Discharge Musculoskeletal: No back pain; muscle pain, muscle weakness (left lower extremity) Skin: change in color (mottled appearance to the left lower extremity) Psychiatric/Neurological: Anxiety; Denies Depressed All Other Systems Reviewed Negative Unless Noted: Yes Past Oilroti-Mjgwvq-Izzxtq Hx Patient Social History Alcohol Use: Occasionally Uses Alcohol Beverage of Choice: Beer Recreational Drug Use: No Smoking Status: Current Everyday Smoker Type Used: Cigarettes 2nd Hand Smoke Exposure: Yes Recent Foreign Travel: No Contact w/Someone Who Travel: No Recent Hopitalizations: No Past Medical History Surgeries: Yes (PERIPHERAL ARTERY ANGIOGRAM 03/02/19) Hysterectomy Respiratory: No Currently Using CPAP: No Currently Using BIPAP: No Cardiac: Yes Aneurysm, High Cholesterol, Hypertension, Peripheral Vascular Neurological: No Genitourinary: No Gastrointestinal: Yes Gastroesophageal Reflux, Diverticulosis Musculoskeletal: No Endocrine: No HEENT: No Cancer: No Psychosocial: Yes Anxiety Integumentary: Yes Blood Disorders: No Adverse Reaction/Blood Tranf: No Physical Exam Vital Signs Vital Signs - First Documented 12/13/19 23:44 Temp 36.4 Pulse 114 Resp 28 B/P (MAP) 173/139 (150) Pulse Ox 93 O2 Delivery Room Air Capillary Refill : Height/Weight/BMI Height: 5'2.00" Weight: 136lbs. 0.0oz. 61.747403bs; 23.00 BMI Method:Stated General Appearance: WD/WN, no apparent distress HEENT: PERRL/EOMI, pharynx normal Neck: full range of motion, normal inspection Respiratory: chest non-tender, lungs clear, normal breath sounds, no respiratory distress, no accessory muscle use Cardiovascular: normal peripheral pulses, regular rate, rhythm Peripheral Pulses: 1+ Dorsalis Pedis (R), 1+ Left Dors-Pedis (L) (dopplerable); 2+ Radial Pulses (R), 2+ Radial Pulses (L) Gastrointestinal: normal bowel sounds, non tender, soft Extremities: normal range of motion, non-tender, normal inspection, no pedal edema, no calf tenderness, normal capillary refill Back: normal inspection, no vertebral tenderness Neurologic/Psychiatric: alert, oriented x 3, other (anxiety) Skin: warm/dry; No cyanosis Progress/Results/Core Measures Results/Orders Lab Results Laboratory Tests Test 12/13/19 23:48 12/14/19 02:08 Range/Units White Blood Count 8.8 4.3-11.0 10^3/uL Red Blood Count 4.86 4.35-5.85 10^6/uL Hemoglobin 15.1 11.5-16.0 G/DL Hematocrit 45 35-52 % Mean Corpuscular Volume 92 80-99 FL Mean Corpuscular Hemoglobin 31 25-34 PG Mean Corpuscular Hemoglobin Concent 34 32-36 G/DL Red Cell Distribution Width 14.5 10.0-14.5 % Platelet Count 234 130-400 10^3/uL Mean Platelet Volume 11.2 H 7.4-10.4 FL Neutrophils (%) (Auto) 50 42-75 % Lymphocytes (%) (Auto) 41 12-44 % Monocytes (%) (Auto) 8 0-12 % Eosinophils (%) (Auto) 1 0-10 % Basophils (%) (Auto) 1 0-10 % Neutrophils # (Auto) 4.3 1.8-7.8 X 10^3 Lymphocytes # (Auto) 3.6 1.0-4.0 X 10^3 Monocytes # (Auto) 0.7 0.0-1.0 X 10^3 Eosinophils # (Auto) 0.1 0.0-0.3 10^3/uL Basophils # (Auto) 0.1 0.0-0.1 10^3/uL Prothrombin Time 12.6 12.2-14.7 SEC INR Comment 0.9 0.8-1.4 Activated Partial Thromboplast Time 32 24-35 SEC D-Dimer 0.29 0.00-0.49 UG/ML Sodium Level 141 135-145 MMOL/L Potassium Level 3.2 L 3.6-5.0 MMOL/L Chloride Level 104 98-107 MMOL/L Carbon Dioxide Level 23 21-32 MMOL/L Anion Gap 14 5-14 MMOL/L Blood Urea Nitrogen 19 H 7-18 MG/DL Creatinine 0.71 0.60-1.30 MG/DL Estimat Glomerular Filtration Rate > 60 BUN/Creatinine Ratio 27 Glucose Level 97 70-105 MG/DL Calcium Level 9.8 8.5-10.1 MG/DL Corrected Calcium 9.5 8.5-10.1 MG/DL Magnesium Level 2.2 1.6-2.4 MG/DL Total Bilirubin 0.7 0.1-1.0 MG/DL Aspartate Amino Transf (AST/SGOT) 13 5-34 U/L Alanine Aminotransferase (ALT/SGPT) 7 0-55 U/L Alkaline Phosphatase 106 40-136 U/L Total Creatine Kinase 24 L 29-168 U/L Myoglobin 18.0 10.0-92.0 NG/ML Troponin I < 0.028 < 0.028 <0.028 NG/ML B-Type Natriuretic Peptide < 10.0 <100.0 PG/ML Total Protein 7.7 6.4-8.2 GM/DL Albumin 4.4 3.2-4.5 GM/DL Lipase 20 8-78 U/L My Orders Orders - RICCARDO KUO Nitroglycerin 0.4 Mg Btl 25's (Nitrostat (12/13/19 23:50) Aspirin Chewable Tablet (Baby Aspirin Ch (12/13/19 23:50) Cbc With Automated Diff (12/13/19 23:58) Magnesium (12/13/19:58) Ekg Tracing (12/13/19 23:58) Comprehensive Metabolic Panel (12/13/19 23:58) Myoglobin Serum (12/13/19 23:58) Protime With Inr (12/13/19 23:58) Partial Thromboplastin Time (12/13/19:58) O2 (12/13/19 23:58) Monitor-Rhythm Ecg Trace Only (12/13/19 23:58) Ed Iv/Invasive Line Start (12/13/19 23:58) Creatine Kinase (12/13/19:58) Lipase (12/13/19 23:58) BNP (12/13/19:58) Nitroglycerin 0.4 Mg Btl 25's (Nitrostat (12/14/19 00:00) Aspirin Chewable Tablet (Baby Aspirin Ch (12/14/19 00:00) Ed Iv/Invasive Line Start (12/13/19 23:58) Ns Iv 1000 Ml (Sodium Chloride 0.9%) (12/13/19 23:58) Pantoprazole Injection (Protonix Injecti (12/14/19 00:15) Chest 1 View, Ap/Pa Only (12/14/19 00:01) Troponin I (12/13/19 23:48) Fibrin Degradation Products (12/13/19 23:48) Ct Angio Chst/Abd/Pelv W Wo (12/14/19 00:01) Iohexol Injection (Omnipaque 350 Mg/Ml 1 (12/14/19 01:45) Received Contrast (Hold Metformin- Contr (12/14/19 01:45) Ns (Ivpb) (Sodium Chloride 0.9% Ivpb Bag (12/14/19 01:45) Ekg Tracing (12/14/19 01:38) Troponin I (12/14/19 02:15) Medications Given in ED Current Medications Medications Dose Ordered Sig/Siva Route Start Time Stop Time Status Last Admin Dose Admin Aspirin 324 mg ONCE ONCE PO 12/14/19 00:00 12/14/19 00:02 DC 12/13/19 23:56 324 MG Iohexol 100 ml ONCE ONCE IV 12/14/19 01:45 12/14/19 01:47 DC 12/14/19 01:46 100 ML Nitroglycerin 0.4 mg UD PRN SL 12/14/19 00:00 12/14/19 00:04 0.4 MG Pantoprazole 40 mg ONCE ONCE IV 12/14/19 00:15 12/14/19 00:16 DC 12/14/19 00:10 40 MG Sodium Chloride 100 ml ONCE ONCE IV 12/14/19 01:45 12/14/19 01:47 DC 12/14/19 01:46 80 ML Vital Signs/I&O 12/13/19 23:44 Temp 36.4 Pulse 114 Resp 28 B/P (MAP) 173/139 (150) Pulse Ox 93 O2 Delivery Room Air Progress Progress Note #1: Time: 00:06 Progress Note The differential is wide for her vague symptoms. Certainly the gallbladder could be part of her problems however with her myopathy is maybe a statin-induced rhabdomyolysis could be the case. Some kind of an abdominal/visceral ischemia. With her possible history of a AAA and having had a stent placed somewhere in her abdomen we are going to opt to obtain a CT angiogram of her chest abdomen and pelvis. If she is having insufficient blood flow to her legs or could be the reason she is having the achiness in her left leg. Atypical angina is also a possibility. Plan to give her 3 and a 24 mg of aspirin to chew and swallow and we'll start off with some nitroglycerin sublingual. We'll also give her pantoprazole IV. Gastritis, pancreatitis are possibilities. Lipase is been ordered. We'll get a urinalysis. If these do not help with her pain we can try opiates. EKG has some very nonspecific one block of ST depression in leads V3 and V4 with half a block in V5. This could be related to coronary ischemia. I don't have any previous EKGs to compare to. Seems to be slightly artifactual and the plan to repeat the EKG after her anxiety has reduced. Anxiety certainly plays a large role in her presentation. Her NIH score is 0. I'm not pursuing any further stroke workup at this time. Progress Note #2: Time: 01:00 Progress Note After 2 doses of nitroglycerin the patient's pain significantly improved and her blood pressure systolic went down from 190-123. She says now her pain is starting to mount back up in her back. She's got to go down for CT angiogram chest abdomen pelvis with runoff's. Initial troponin is negative. Initial report from lab was that the d-dimer was off the chart and would take another 30 minutes to get a number. CT angiogram was ordered and obtained. D- dimer ended up getting resulted out as undetectable however. Initial ECG Impression Date: December 14, 2019 Initial ECG Impression Time: 23:49 Initial ECG Rate: 106 Initial ECG Rhythm: Normal Sinus Initial ECG Intervals: Normal Initial ECG Impression: Normal, Nonspecific Changes Initial ECG Comparisson: Changed Comment Nonspecific ST depression in leads V3 and V4 of 1 block. Half a block of depression in lead V5. No reciprocal ST elevation. No other dysrhythmia noted. Sinus tachycardia. EKG : EKG Time: 01:39 Rate: 80 Rhythm: Normal Sinus Intervals: Normal ECG Comparisson: Changed ECG Impression: Normal Comment Normal sinus rhythm without clinically relevant ST changes. Diagnostic Imaging Diagonstic Imaging: Xray Plain Films/CT/US/NM/MRI: chest Comments No acute cardiopulmonary processes on one view chest x-ray. Reviewed: Reviewed by Me Diagonstic Imaging: CT (with IV contrast, angiogram) Plain Films/CT/US/NM/MRI: chest, abdomen, pelvis Comments Negative CTA chest. Infrarenal aortic stent bridging a very small residual aortic aneurysm sac measuring no more than 1.8 cm. No acute findings. Reviewed: Reviewed Night [facility] Study, Reviewed by Me Consults : Consulting Physician: RONALD WEN MD FACP FAC CCDS Consults Notes Discussed the case with Dr. Wen and he agrees a delta troponin is negative and he would let her go home and keep her follow-up with Dr. Sutton. He would recommend she follow up with Dr. Romero in the next week or 2. Departure Impression Primary Impression: Abdominal pain Qualified Codes: R10.10 - Upper abdominal pain, unspecified Disposition: HOME, SELF-CARE Condition: Stable Departure-Patient Inst. Decision time for Depature: 02:40 Referrals: MELLISA CURIEL MD (PCP/Family) Primary Care Physician Patient Instructions: Acute Abdomen (Belly Pain), Adult (DC) Add. Discharge Instructions: We could not find evidence of having a heart attack or worsening of your aneurysm. The stent in your abdominal aorta appears to be intact with no changes. Keep your follow-up appointment with the surgeon to continue working up your gallbladder. Plan to follow up in the next one-two weeks with your threader operator. Continue taking her medications as prescribed. If your pain returns you can use antacids and if that does not help and you have intractable pain and/or nausea then please return to the ER. All discharge instructions reviewed with patient and/or family. Voiced understanding. Copy Copies To 1: LARRY SUTTON DO; Philippe ROMERO MD, TITUS J December 14, 2019 00:07
[2019-12-14] MEDS ORDERED: PANTOPRAZOLE 40 MG (PROTONIX) VIAL IV ONE (00:15)
[2019-12-14 00:19] LABS: BASOPHILS # (AUTO) 0.1 10^3/uL (0.0-0.1); BASOPHILS % (AUTO) 1 % (0-10); EOSINOPHILS # (AUTO) 0.1 10^3/uL (0.0-0.3); EOSINOPHILS % (AUTO) 1 % (0-10); HEMATOCRIT 45 % (35-52); HEMOGLOBIN 15.1 G/DL (11.5-16.0); LYMPHOCYTES # (AUTO) 3.6 X 10^3 (1.0-4.0); LYMPHOCYTES % (AUTO) 41 % (12-44); MEAN CORPUSCULAR HEMOGLOBIN 31 PG (25-34); MEAN CORPUSCULAR HGB CONC 34 G/DL (32-36); MEAN CORPUSCULAR VOLUME 92 FL (80-99); MEAN PLATELET VOLUME 11.2 FL (7.4-10.4); MONOCYTES # (AUTO) 0.7 X 10^3 (0.0-1.0); MONOCYTES % (AUTO) 8 % (0-12); NEUTROPHILS # (AUTO) 4.3 X 10^3 (1.8-7.8); NEUTROPHILS % (AUTO) 50 % (42-75); PLATELET COUNT 234 10^3/uL (130-400); RED CELL DISTRIBUTION WIDTH 14.5 % (10.0-14.5); WHITE BLOOD COUNT 8.8 10^3/uL (4.3-11.0)
[2019-12-14 00:23] LABS: ALBUMIN 4.4 GM/DL (3.2-4.5)
[2019-12-14 00:24] LABS: CHLORIDE 104 MMOL/L (98-107); POTASSIUM 3.2 MMOL/L (3.6-5.0); SODIUM 141 MMOL/L (135-145)
[2019-12-14 00:25] LABS: CALCIUM 9.8 MG/DL (8.5-10.1)
[2019-12-14 00:26] LABS: GLUCOSE 97 MG/DL (70-105); TOTAL PROTEIN 7.7 GM/DL (6.4-8.2)
[2019-12-14 00:27] LABS: CARBON DIOXIDE 23 MMOL/L (21-32)
[2019-12-14 00:28] LABS: BILIRUBIN,TOTAL 0.7 MG/DL (0.1-1.0)
[2019-12-14 00:30] LABS: ALKALINE PHOSPHATASE 106 U/L (40-136); CREATININE SERUM 0.71 MG/DL (0.60-1.30); GFR ESTIMATED > 60
[2019-12-14 00:31] LABS: BUN/CREATININE RATIO 27
[2019-12-14 00:32] LABS: MAGNESIUM 2.2 MG/DL (1.6-2.4)
[2019-12-14 00:33] LABS: ALANINE AMINOTRANSFERASE 7 U/L (0-55)
[2019-12-14 00:34] LABS: CREATINE KINASE 24 U/L (29-168); LIPASE 20 U/L (8-78)
[2019-12-14 01:19] LABS: FIBRIN DEGRADATION PRODUCTS 0.29 UG/ML (0.00-0.49); INR 0.9 (0.8-1.4); PROTHROMBIN TIME PATIENT 12.6 SEC (12.2-14.7)
[2019-12-14] MEDS ORDERED: NS 100 ML (IVPB) BAG IV ONE (01:45)
[2019-12-14] MEDS ORDERED: IOHEXOL 350 MG/ML 100 ML (OMNIPAQUE 350) VIAL IV ONE (01:45)
[2019-12-14] MEDS ORDERED: HOLD METFORMIN - RECEIVED CONTRAST 20 ML VIAL IV SCH (01:45)
[2019-12-14 02:50] VITALS: BP 143/89
--- NOTE | 2019-12-14 06:15 | Diagnostic Imaging Report ---
INDICATION: Chest pain. COMPARISON: 04/30/2019. FINDINGS: Single view of the chest demonstrates clear lungs bilaterally. The heart is normal. There is no pneumothorax. Osseous structures are normal. IMPRESSION: Negative chest. Dictated by: Dictated on workstation # [id number]
--- NOTE | 2019-12-14 06:39 | Diagnostic Imaging Report ---
PROCEDURE: CT angiography of the chest with and without contrast and CT of the abdomen and pelvis with and without contrast. TECHNIQUE: Non contrast-enhanced helical images were obtained through the chest, abdomen and pelvis. Contrast-enhanced thin section helical images were obtained through the chest, abdomen and pelvis with intravenous contrast timed for the optimal opacification of the arterial structures per departmental CTA protocol. Post-processing, retro reconstructions and interpretation of angiographic images of the vessels was performed. 3D MIP reconstructions were performed and reviewed. Auto Exposure Controls were utilized during the CT exam to meet ALARA standards for radiation dose reduction. INDICATION: Chest and abdominal pain. COMPARISON: 06/16/2019 CTA CHEST: There is good opacification of pulmonary arteries without intraluminal filling defect. Thoracic aorta is also unremarkable apart from mild atherosclerotic disease. Centrilobular emphysema is seen throughout the lungs with an upper lobe predominance. There is no evidence of mass or infiltrate. No significant pleural or pericardial fluid is identified. There is mild hiatal hernia without evidence of pathologic adenopathy in the thorax. There are coronary artery calcifications. IMPRESSION: No CTA evidence of pulmonary embolism. There is no acute abnormality seen in the chest, although note is made of mild coronary artery disease. CT abdomen and pelvis: No focal hepatic or splenic abnormality is identified. 3.0 x 2.4 cm low-density nodule in the right adrenal gland is similar to previous study and likely represents adenoma. No gallbladder, pancreatic or splenic lesion is identified. No liver mass is identified. There is moderate atherosclerotic calcification of the infrarenal abdominal aorta with mild aneurysmal dilatation reaching a maximum diameter of 1.8 cm. There is a patent infrarenal aortic stent in place. No renal abnormality is identified. There is good perfusion to the kidneys. There is no evidence of free fluid within the abdomen or pelvis. There is no evidence of bowel obstruction. Partially opacified urinary bladder is unremarkable. IMPRESSION: Stable appearance of approximately 3 cm right adrenal gland nodule which likely represents adenoma. There is no evidence of significant change in stented infrarenal abdominal aortic aneurysm. Otherwise, no acute abnormality or adverse change is detected. Dictated by: Dictated on workstation # [id number]
== END 2019-12-14 02:50 | disposition home or self-care (01) ==
LOC: EDUNIT# 23:41 → ER 23:43
DX: R10.9 Unspecified abdominal pain (principal); I10 Essential (primary) hypertension; E78.00 Pure hypercholesterolemia, unspecified; K21.9 Gastro-esophageal reflux disease without esophagitis; F17.210 Nicotine dependence, cigarettes, uncomplicated; Z79.82 Long term (current) use of aspirin; Z79.02 Long term (current) use of antithrombotics/antiplatelets; Z79.52 Long term (current) use of systemic steroids
CPT/HCPCS: 36415; 71045; 71275; 74174; 80053; 82550; 83690; 83735; 83874; 83880; 84484; 85025; 85379; 85610; 85730; 93005; 93041

== ENCOUNTER → 2019-12-17 | Outpatient (CLI) | payer OTHER ==
[~2019-12-17] MED LIST changes: +REGADENOSON 0.4 MG/5 ML SYR (LEXISCAN) IV ONE
[2019-12-17 09:48] VITALS: BP 149/60
== END ==
LOC: CARD 07:11
PROVIDERS: ATTEND Internal Medicine Interventional Cardiology
DX: I73.9 Peripheral vascular disease, unspecified (principal); I10 Essential (primary) hypertension; E78.5 Hyperlipidemia, unspecified
CPT/HCPCS: 78452; 93017

== ENCOUNTER → 2019-12-18 | Outpatient (CLI) | payer OTHER ==
[~2019-12-18] MED LIST changes: -REGADENOSON 0.4 MG/5 ML SYR (LEXISCAN) IV ONE
== END ==
LOC: CARD 08:26
PROVIDERS: ATTEND Internal Medicine Interventional Cardiology
DX: I73.9 Peripheral vascular disease, unspecified (principal); I10 Essential (primary) hypertension; E78.5 Hyperlipidemia, unspecified
CPT/HCPCS: 93306

== ENCOUNTER 2020-01-04 07:31 | Outpatient (RCR) | payer OTHER ==
[~2020-01-04] VITALS: Ht 157.5 cm; Wt 53.2 kg
[~2020-01-04 07:31] MED LIST changes: +OMEP40CA27 PO
[2020-01-07] MEDS ORDERED: HYDR-4226 PO (10:19)
[2020-01-07] MEDS ORDERED: DOCU-143 PO (10:19)
== END 2020-01-04 14:41 | disposition home or self-care (01) ==
LOC: PREOP 07:31
PROVIDERS: ATTEND Surgery
DX: Z01.812 Encounter for preprocedural laboratory examination (principal); Z11.59 Encounter for screening for other viral diseases; K82.8 Other specified diseases of gallbladder; R10.13 Epigastric pain
CPT/HCPCS: 87635

== ENCOUNTER → 2020-02-15 | Outpatient (CLI) | payer OTHER ==
[~2020-02-15] MED LIST changes: +BARIUM for suspension 96% w/w (Vanilla Silq Medium Density) PO ONE; +BARIUM for suspension 98% w/w (Vanilla Silq High Density) PO ONE; +DOCU-143 PO; +HYDR-4226 PO; +NF-ESOM40C PO; +ROSU5TAB13 PO
--- NOTE | 2020-02-15 11:49 | Diagnostic Imaging Report ---
INDICATION: Dysphagia. Patient ingested effervescent crystals as well as thin and thick barium imaging of the esophagus was performed in multiple obliquities. Total of 1 minute and 17 seconds fluoroscopic time was utilized. Preliminary radiograph of the chest is unremarkable. The oral phase unremarkable. Esophagus has a smooth contour. No mass or stricture is identified. No hiatal hernia or gastroesophageal reflux is detected. IMPRESSION: Unremarkable esophagram. Dictated by: Dictated on workstation # [id number]
== END ==
LOC: RAD 09:04
PROVIDERS: ATTEND Surgery
DX: R13.10 Dysphagia, unspecified (principal)
CPT/HCPCS: 74220

== ENCOUNTER → 2020-02-15 | Outpatient (CLI) | payer OTHER ==
[~2020-02-15] VITALS: Ht 157 cm; Wt 51.8 kg
[~2020-02-15] MED LIST changes: -BARIUM for suspension 96% w/w (Vanilla Silq Medium Density) PO ONE; -BARIUM for suspension 98% w/w (Vanilla Silq High Density) PO ONE
== END ==
LOC: PREOP 05:29
PROVIDERS: ATTEND Surgery
DX: Z01.818 Encounter for other preprocedural examination (principal); Z01.812 Encounter for preprocedural laboratory examination; R13.10 Dysphagia, unspecified; Z20.828 Contact with and (suspected) exposure to other viral communicable diseases
CPT/HCPCS: 87635

== ENCOUNTER 2020-02-16 10:00 | Day surgery (SDC) | payer OTHER ==
[~2020-02-16] VITALS: Ht 157 cm; Wt 51.8 kg
[2020-02-16] MEDS ORDERED: LACTATED RINGERS 1,000 ML IV STA (10:13)
[2020-02-16] MEDS ORDERED: LACTATED RINGERS 1,000 ML IV ONE (10:14)
[2020-02-16] MEDS ORDERED: HURRICAINE EXT TUBE (BENZOCAINE) XX PRN (10:15)
[2020-02-16 10:25] VITALS: BP 129/76
[2020-02-16] MEDS ORDERED: HURRICAINE EXT TUBE (BENZOCAINE) ONE (10:44)
--- OUTSIDE RECORDS SUMMARY | 2020-02-16 10:47 | XMS REPORT | Continuity of Care Document ---
Author Organization Unknown Address Unknown Phone Unavailable Allergies Active Description Code Type Severity Reaction Onset Reported/Identified Relationship to Patient Clinical Status Yes No Known Drug Allergies [id number] Drug Allergy Unknown N/A 02/15/2020 Medications There is no data. Problems Date Dx Coded Attending Type Code Diagnosis Diagnosed By 07/04/1440 LARRY SUTTON DO Ot K82. 8 OTHER SPECIFIED DISEASES OF GALLBLADDER 07/04/1440 LARRY SUTTON DO Ot R10. 13 EPIGASTRIC PAIN 07/04/1440 LARRY SUTTON DO Ot Z01.812 ENCOUNTER FOR PREPROCEDURAL LABORATORY E 07/04/1440 LARRY SUTTON DO Ot Z11. 59 ENCOUNTER FOR SCREENING FOR OTHER VIRAL 11/07/2016 BELÉN BROOKS DO Ot Z12.31 ENCNTR SCREEN MAMMOGRAM FOR MALIGNANT NE 11/07/2016 BELÉN BROOKS DO Ot Z12.31 ENCNTR SCREEN MAMMOGRAM FOR MALIGNANT NE 11/26/2018 BELÉN BROOKS DO Ot Z12.31 ENCNTR SCREEN MAMMOGRAM FOR MALIGNANT NE 11/26/2018 MELLISA CURIEL MD Ot Z12.3 1 ENCNTR SCREEN MAMMOGRAM FOR MALIGNANT NE 03/02/2019 Philippe FORBES MD Ot F17.210 NICOTINE DEPENDENCE, CIGARETTES, UNCOMPL 03/02/2019 Philippe FORBES MD Ot I10 ESSENTIAL (PRIMARY) HYPERTENSION 03/02/2019 Philippe FORBES MD Ot I71 .4 ABDOMINAL AORTIC ANEURYSM, WITHOUT RUPTU 03/02/2019 Philippe FORBES MD Ot I73 .9 PERIPHERAL VASCULAR DISEASE, UNSPECIFIED 03/02/2019 Philippe FORBES MD Ot K21 .9 GASTRO-ESOPHAGEAL REFLUX DISEASE WITHOUT 03/02/2019 Philippe FORBES MD Ot Z79.02 [facility] (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 03/02/2019 Philippe FORBES MD Ot Z79 .1 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 (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 OF NON-STEROIDAL 03/02/2019 Philippe FORBES MD Ot Z79.82 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 (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 OF ASPIRIN 03/02/2019 Philippe FORBES MD Ot Z79.899 OTHER [facility] (CURRENT) DRUG THERAPY 03/02/2019 Philippe FORBES MD Ot Z82.49 FAMILY HX OF ISCHEM HEART DIS AND OTH DI 03/02/2019 Philippe FORBES MD Ot Z83 .3 FAMILY HISTORY OF DIABETES MELLITUS 03/02/2019 Philippe FORBES MD Ot Z90.710 ACQUIRED ABSENCE OF BOTH CERVIX AND UTER 03/11/2019 Philippe FORBES MD Ot F17.210 NICOTINE DEPENDENCE, CIGARETTES, UNCOMPL 03/11/2019 Philippe FORBES MD Ot I10 ESSENTIAL (PRIMARY) HYPERTENSION 03/11/2019 Philippe FORBES MD Ot I71 .4 ABDOMINAL AORTIC ANEURYSM, WITHOUT RUPTU 03/11/2019 Philippe FORBES MD Ot I73 .9 PERIPHERAL VASCULAR DISEASE, UNSPECIFIED 03/11/2019 Philippe FORBES MD Ot K21 .9 GASTRO-ESOPHAGEAL REFLUX DISEASE WITHOUT 03/11/2019 Philippe FORBES MD Ot Z79.02 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 (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 03/11/2019 Philippe FORBES MD Ot Z79 .1 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 (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 OF NON-STEROIDAL 03/11/2019 Philippe FROBES MD Ot Z79.82 [facility] (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 OF ASPIRIN 03/11/2019 Philippe FORBES MD, Ot Z79.899 OTHER [facility] (CURRENT) DRUG THERAPY 03/11/2019 Philippe FORBES MD Ot Z82.49 FAMILY HX OF ISCHEM HEART DIS AND OTH DI 03/11/2019 Philippe FORBES MD Ot Z83 .3 FAMILY HISTORY OF DIABETES MELLITUS 03/11/2019 Philippe FORBES MD Ot Z90.710 ACQUIRED ABSENCE OF BOTH CERVIX AND UTER 03/13/2019 Philpipe FORBES MD Ot F17.210 NICOTINE DEPENDENCE, CIGARETTES, UNCOMPL 03/13/2019 Philippe FORBES MD Ot I10 ESSENTIAL (PRIMARY) HYPERTENSION 03/13/2019 Philippe FORBES MD Ot I71 .4 ABDOMINAL AORTIC ANEURYSM, WITHOUT RUPTU 03/13/2019 Philippe FORBES MD Ot I73 .9 PERIPHERAL VASCULAR DISEASE, UNSPECIFIED 03/13/2019 Philippe FORBES MD, Ot K21 .9 GASTRO-ESOPHAGEAL REFLUX DISEASE WITHOUT 03/13/2019 Philippe FORBES MD Ot Z79.02 FDC (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 03/13/2019 Philippe FORBES MD, Ot Z79 .1 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 (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 OF NON-STEROIDAL 03/13/2019 Philippe FORBES MD Ot Z79.82 [facility] (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 OF ASPIRIN 03/13/2019 Philippe FORBES MD Ot Z79.899 OTHER [facility] (CURRENT) DRUG THERAPY 03/13/2019 Philippe FORBES MD Ot Z82.49 FAMILY HX OF ISCHEM HEART DIS AND OTH DI 03/13/2019 Philippe FORBES MD Ot Z83 .3 FAMILY HISTORY OF DIABETES MELLITUS 03/13/2019 Philippe FORBES MD Ot Z90.710 ACQUIRED ABSENCE OF BOTH CERVIX AND UTER 03/14/2019 Philippe FORBES MD Ot F17.210 NICOTINE DEPENDENCE, CIGARETTES, UNCOMPL 03/14/2019 Philippe FORBES MD Ot I10 ESSENTIAL (PRIMARY) HYPERTENSION 03/14/2019 Philippe FORBES MD Ot I71 .4 ABDOMINAL AORTIC ANEURYSM, WITHOUT RUPTU 03/14/2019 Philippe FORBES MD Ot I73 .9 PERIPHERAL VASCULAR DISEASE, UNSPECIFIED 03/14/2019 Philippe FORBES MD, Ot K21 .9 GASTRO-ESOPHAGEAL REFLUX DISEASE WITHOUT 03/14/2019 Philippe FORBES MD Ot 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.02 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 (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 03/14/2019 Philippe FORBES MD Ot Z79 .1 FDC (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 OF NON-STEROIDAL 03/14/2019 Philippe FORBES MD Ot Z79.82 [facility]DC (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 OF ASPIRIN 03/14/2019 Philippe FORBES MD Ot Z79.899 OTHER 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 (CURRENT) DRUG THERAPY 03/14/2019 Philippe FORBES MD Ot Z82.49 FAMILY HX OF ISCHEM HEART DIS AND OTH DI 03/14/2019 Philippe FORBES MD Ot Z83 .3 FAMILY HISTORY OF DIABETES MELLITUS 03/14/2019 Philippe FORBES MD Ot Z90.710 ACQUIRED ABSENCE OF BOTH CERVIX AND UTER 03/22/2019 ZAKI DO, DEMETRIS K Ot E78.00 PURE HYPERCHOLESTEROLEMIA, UNSPECIFIED 03/22/2019 ZAKI DO, DEMETRIS K Ot F17.210 NICOTINE DEPENDENCE, CIGARETTES, UNCOMPL 03/22/2019 ZAKI DO, DEMETRIS K Ot F41.9 ANXIETY DISORDER, UNSPECIFIED 03/22/2019 ZAKI DO, DEMETRIS K Ot I10 ESSENTIAL (PRIMARY) HYPERTENSION 03/22/2019 ZAKI DO, DEMETRIS K Ot I73.9 PERIPHERAL VASCULAR DISEASE, UNSPECIFIED 03/22/2019 ZAKI DO, DEMETRIS K Ot K21.9 GASTRO-ESOPHAGEAL REFLUX DISEASE WITHOUT 03/22/2019 ZAKI DO, DEMETRIS K Ot L29.9 PRURITUS, UNSPECIFIED 03/22/2019 ZAKI DO, DEMETRIS K Ot L50.9 URTICARIA, UNSPECIFIED 03/22/2019 ZAKI DO, DEMETRIS K Ot Z79.02 FDC (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 03/22/2019 ZAKI DO, DEMETRIS K Ot Z79.82 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 (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 OF ASPIRIN 03/22/2019 ZAKI DO, DEMETRIS K Ot Z87.19 PERSONAL HISTORY OF OTHER DISEASES OF TH 03/22/2019 ZAKI DO DEMETRIS K Ot Z90.710 ACQUIRED ABSENCE OF BOTH CERVIX AND UTER 03/24/2019 BELÉN BROOKS DO Ot Z12.31 ENCNTR SCREEN MAMMOGRAM FOR MALIGNANT NE 03/24/2019 VEENA BERG, MELLISA Ojeda Ot Z12.3 1 ENCNTR SCREEN MAMMOGRAM FOR MALIGNANT NE 03/24/2019 ZAKI DO, DEMETRIS K Ot E78.00 PURE HYPERCHOLESTEROLEMIA, UNSPECIFIED 03/24/2019 ZAKI DO, DEMETRIS K Ot F17.210 NICOTINE DEPENDENCE, CIGARETTES, UNCOMPL 03/24/2019 ZAKI , DEMETRIS K Ot F41.9 ANXIETY DISORDER, UNSPECIFIED 03/24/2019 ZAKI , DEMETRIS K Ot I10 ESSENTIAL (PRIMARY) HYPERTENSION 03/24/2019 ZAKI , DEMETRIS K Ot I73.9 PERIPHERAL VASCULAR DISEASE, UNSPECIFIED 03/24/2019 ZAKI , DEMETRIS K Ot K21.9 GASTRO-ESOPHAGEAL REFLUX DISEASE WITHOUT 03/24/2019 ZAKI DO, DEMETRIS K Ot L29.9 PRURITUS, UNSPECIFIED 03/24/2019 ZAKI DO, DEMETRSI K Ot L50.9 URTICARIA, UNSPECIFIED 03/24/2019 ZAKI , DEMETRIS K Ot Z79.02 [facility]DC (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 03/24/2019 [facility], DEMETRIS K Ot Z79.82 FDC (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 OF ASPIRIN 03/24/2019 ZAKI , DEMETRIS K Ot Z87.19 PERSONAL HISTORY OF OTHER DISEASES OF TH 03/24/2019 ZAKI OLIVO, DEMETRIS K Ot Z90.710 ACQUIRED ABSENCE OF BOTH CERVIX AND UTER 03/24/2019 YVONNE BERG, RENETTA Campos Ot E78.00 PURE HYPERCHOLESTEROLEMIA, UNSPECIFIED 03/24/2019 YVONNE BERG, RENETTA Campos Ot F17.210 NICOTINE DEPENDENCE, CIGARETTES, UNCOMPL 03/24/2019 YVONNE BERG, RENETTA Campos Ot F41.9 ANXIETY DISORDER, UNSPECIFIED 03/24/2019 YVONNE BERG, RENETTA Campos Ot I10 ESSENTIAL (PRIMARY) HYPERTENSION 03/24/2019 YVONNE BERG, RENETTA Campos Ot I73.9 PERIPHERAL VASCULAR DISEASE, UNSPECIFIED 03/24/2019 YVONNE BERG, RENETTA Campos Ot K21.9 GASTRO-ESOPHAGEAL REFLUX DISEASE WITHOUT 03/24/2019 YVONNE BERG, RENETTA Campos Ot L29.9 PRURITUS, UNSPECIFIED 03/24/2019 YVONNE BERG, RENETTA Campos Ot L50.9 URTICARIA, UNSPECIFIED 03/24/2019 YVONNE BERG, RENETTA Campos Ot 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.02 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 (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 03/24/2019 YVONNE BERG, RENETTA Campos Ot Z79.82 FDC (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 OF ASPIRIN 03/24/2019 RENETTA RUSSELL MD Ot Z87.19 PERSONAL HISTORY OF OTHER DISEASES OF 03/24/2019 RENETTA RUSSELL MD Ot Z90.710 ACQUIRED ABSENCE OF BOTH CERVIX AND UTER 03/26/2019 RENETTA RUSSELL MD Ot E78.00 PURE HYPERCHOLESTEROLEMIA, UNSPECIFIED 03/26/2019 RENETTA RUSSELL MD Ot F17.210 NICOTINE DEPENDENCE, CIGARETTES, UNCOMPL 03/26/2019 RENETTA RUSSELL MD Ot F41.9 ANXIETY DISORDER, UNSPECIFIED 03/26/2019 RENETTA RUSSELL MD Ot I10 ESSENTIAL (PRIMARY) HYPERTENSION 03/26/2019 RENETTA RUSSELL MD Ot I73.9 PERIPHERAL VASCULAR DISEASE, UNSPECIFIED 03/26/2019 RENETTA RUSSELL MD Ot K21.9 GASTRO-ESOPHAGEAL REFLUX DISEASE WITHOUT 03/26/2019 RENETTA RUSSELL MD Ot L29.9 PRURITUS, UNSPECIFIED 03/26/2019 RENETTA RUSSELL MD Ot L50.9 URTICARIA, UNSPECIFIED 03/26/2019 RENETTA RUSSELL MD Ot Z79.02 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 (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 03/26/2019 RENETTA RUSSELL MD Ot Z79.82 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 (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 OF ASPIRIN 03/26/2019 RENETTA RUSSELL MD Ot Z87.19 PERSONAL HISTORY OF OTHER DISEASES OF 03/26/2019 RENETTA RUSSELL MD Ot Z90.710 ACQUIRED ABSENCE OF BOTH CERVIX AND UTER 04/30/2019 RENETTA RUSSELL MD Ot E78.00 PURE HYPERCHOLESTEROLEMIA, UNSPECIFIED 04/30/2019 RENETTA RUSSELL MD Ot F17.210 NICOTINE DEPENDENCE, CIGARETTES, UNCOMPL 04/30/2019 RENETTA RUSSELL MD Ot F41.9 ANXIETY DISORDER, UNSPECIFIED 04/30/2019 RENETTA RUSSELL MD Ot I10 ESSENTIAL (PRIMARY) HYPERTENSION 04/30/2019 RENETTA RUSSELL MD Ot I71.4 ABDOMINAL AORTIC ANEURYSM, WITHOUT RUPTU 04/30/2019 RENETTA RUSSELL MD Ot K21.9 GASTRO-ESOPHAGEAL REFLUX DISEASE WITHOUT 04/30/2019 RENETTA RUSSELL MD Ot R10.32 LEFT LOWER QUADRANT PAIN 04/30/2019 RENETTA RUSSELL MD, Ot Z79.02 FDC (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 04/30/2019 RENETTA RUSSELL MD Ot Z79.52 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 (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 OF SYSTEMIC STER 04/30/2019 RENETTA RUSSELL MD Ot Z79.82 FDC (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 OF ASPIRIN 04/30/2019 RENETTA RUSSELL MD Ot Z87.19 PERSONAL HISTORY OF OTHER DISEASES OF 04/30/2019 RENETTA RUSSELL MD, Ot Z90.710 ACQUIRED ABSENCE OF BOTH CERVIX AND UTER 05/04/2019 RENETTA RUSSELL MD Ot E78.00 PURE HYPERCHOLESTEROLEMIA, UNSPECIFIED 05/04/2019 RENETTA RUSSELL MD Ot F17.210 NICOTINE DEPENDENCE, CIGARETTES, UNCOMPL 05/04/2019 RENETTA RUSSELL MD, Ot F41.9 ANXIETY DISORDER, UNSPECIFIED 05/04/2019 RENETTA RUSSELL MD Ot I10 ESSENTIAL (PRIMARY) HYPERTENSION 05/04/2019 RENETTA RUSSELL MD, Ot I71.4 ABDOMINAL AORTIC ANEURYSM, WITHOUT RUPTU 05/04/2019 RENETTA RUSSELL MD, Ot K21.9 GASTRO-ESOPHAGEAL REFLUX DISEASE WITHOUT 05/04/2019 RENETTA RUSSELL MD, Ot R10.32 LEFT LOWER QUADRANT PAIN 05/04/2019 RENETTA RUSSELL MD, Ot Z79.02 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 (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 05/04/2019 RENETTA RUSSELL MD Ot Z79.52 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 (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 OF SYSTEMIC STER 05/04/2019 RENETTA RUSSELL MD Ot Z79.82 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 (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 OF ASPIRIN 05/04/2019 RENETTA RUSSELL MD Ot Z87.19 PERSONAL HISTORY OF OTHER DISEASES OF 05/04/2019 MAHENDRA RUSSELL MDUA T Ot Z90.710 ACQUIRED ABSENCE OF BOTH CERVIX AND UTER 06/05/[address]Z APRN Ot E78.00 PURE HYPERCHOLESTEROLEMIA, UNSPECIFIED 06/05/[address]Z APRN Ot F41 .9 ANXIETY DISORDER, UNSPECIFIED 06/05/[address]Z APRN Ot I10 ESSENTIAL (PRIMARY) HYPERTENSION 06/05/[address]Z APRN Ot K21 .9 GASTRO-ESOPHAGEAL REFLUX DISEASE WITHOUT 06/05/[address]Z APRN Ot K57.92 DVTRCLI OF INTEST, PART UNSP, W/O PERF O 06/05/[address]Z APRN Ot R10.32 LEFT LOWER QUADRANT PAIN 06/05/2019 [address]H RDZ APRN Ot Z77.22 CNTCT W AND EXPSR TO ENVIRON TOBACCO SMO 06/05/[address]Z APRN Ot Z79.02 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 (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 06/05/[address]Z APRN Ot Z79.52 FDC (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 OF SYSTEMIC STER 06/05/[address]Z APRN Ot Z79.82 FDC (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 OF ASPIRIN 06/05/[address]Z APRN Ot Z87.19 PERSONAL HISTORY OF OTHER DISEASES OF 06/05/[address]Z APRN Ot Z90.710 ACQUIRED ABSENCE OF BOTH CERVIX AND UTER 06/09/2019 PERI MARINO APRN Ot M47.816 SPONDYLOSIS W/O MYELOPATHY OR RADICULOPA 06/09/[address]Z APRN Ot E78.00 PURE HYPERCHOLESTEROLEMIA, UNSPECIFIED 06/09/[address]Z APRN Ot F41 .9 ANXIETY DISORDER, UNSPECIFIED 06/09/[address]Z APRN Ot I10 ESSENTIAL (PRIMARY) HYPERTENSION 06/09/[address]Z APRN Ot K21 .9 GASTRO-ESOPHAGEAL REFLUX DISEASE WITHOUT 06/09/[address]Z APRN Ot K57.92 DVTRCLI OF INTEST, PART UNSP, W/O PERF O 06/09/[address]Z APRN Ot R10.32 LEFT LOWER QUADRANT PAIN 06/09/[address]H [address]Z APRN Ot Z77.22 CNTCT W AND EXPSR TO ENVIRON TOBACCO SMO 06/09/[address]Z APRN Ot Z79.02 FDC (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 06/09/[address]Z APRN Ot Z79.52 FDC (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 OF SYSTEMIC STER 06/09/[address]Z APRN Ot Z79.82 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 (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 OF ASPIRIN 06/09/[address]Z APRN Ot Z87.19 PERSONAL HISTORY OF OTHER DISEASES OF TH 06/09/[address]Z APRN Ot Z90.710 ACQUIRED ABSENCE OF BOTH CERVIX AND UTER 06/10/2019 PERI MARINO APRN Ot M47.816 SPONDYLOSIS W/O MYELOPATHY OR RADICULOPA 06/18/2019 STARR HERNANDEZ Ot 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 00 PURE HYPERCHOLESTEROLEMIA, UNSPECIFIED 12/14/2019 RICCARDO KUO MD Ot F17.210 NICOTINE DEPENDENCE, CIGARETTES, UNCOMPL 12/14/2019 RICCARDO KUO MD Ot I10 ESSENTIAL (PRIMARY) HYPERTENSION 12/14/2019 RICCARDO KUO MD Ot K21. 9 GASTRO-ESOPHAGEAL REFLUX DISEASE WITHOUT 12/14/2019 RICCARDO KUO MD Ot R10. 9 UNSPECIFIED ABDOMINAL PAIN 12/14/2019 RICCARDO KUO MD, Ot Z79. 02 FDC (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 12/14/2019 RICCARDO KUO MD Ot Z79. 52 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 (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 OF SYSTEMIC STER 12/14/2019 AYAAN MD, RICCARDO J Ot Z79. 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 00 PURE HYPERCHOLESTEROLEMIA, UNSPECIFIED 12/15/2019 RICCARDO KUO MD Ot F17.210 NICOTINE DEPENDENCE, CIGARETTES, UNCOMPL 12/15/2019 RICCARDO KUO MD Ot I10 ESSENTIAL (PRIMARY) HYPERTENSION 12/15/2019 RICCARDO KUO MD Ot K21. 9 GASTRO-ESOPHAGEAL REFLUX DISEASE WITHOUT 12/15/2019 RICCARDO KUO MD Ot R10. 9 UNSPECIFIED ABDOMINAL PAIN 12/15/2019 RICCARDO KUO MD Ot Z79. 02 FDC (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 12/15/2019 RICCARDO KUO MD Ot Z79. 52 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 (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 OF SYSTEMIC STER 12/15/2019 RICCARDO KUO MD Ot Z79. 82 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 (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 OF ASPIRIN 12/20/2019 RICCARDO KUO MD Ot E78. 00 PURE HYPERCHOLESTEROLEMIA, UNSPECIFIED 12/20/2019 RICCARDO KUO MD Ot F17.210 NICOTINE DEPENDENCE, CIGARETTES, UNCOMPL 12/20/2019 RICCARDO KUO MD Ot I10 ESSENTIAL (PRIMARY) HYPERTENSION 12/20/2019 RICCARDO KUO MD Ot K21. 9 GASTRO-ESOPHAGEAL REFLUX DISEASE WITHOUT 12/20/2019 RICCARDO KUO MD Ot R10. 9 UNSPECIFIED ABDOMINAL PAIN 12/20/2019 RICCARDO KUO MD, Ot Z79. 02 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 (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 12/20/2019 RICCARDO KUO MD, Ot Z79. 52 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 (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 OF SYSTEMIC STER 12/20/2019 RICCARDO KUO MD, Ot Z79. 82 FDC (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 OF ASPIRIN 12/22/2019 ANDREI BERG, Philippe VIDAL Ot E78 .5 HYPERLIPIDEMIA, UNSPECIFIED 12/22/2019 ANDREI BERG, Philippe VIDAL Ot I10 ESSENTIAL (PRIMARY) HYPERTENSION 12/22/2019 ANDREI BERG, Philippe VIDAL Ot I73 .9 PERIPHERAL VASCULAR DISEASE, UNSPECIFIED 12/22/2019 Philippe FORBES MD, Ot E78 .5 HYPERLIPIDEMIA, UNSPECIFIED 12/22/2019 ANDREI BERG, Philippe VIDAL Ot I10 ESSENTIAL (PRIMARY) HYPERTENSION 12/22/2019 ANDREI BERG, Philippe VIDAL Ot I73 .9 PERIPHERAL VASCULAR DISEASE, UNSPECIFIED 12/23/2019 ANDREI BERG, Philippe VIDAL Ot E78 .5 HYPERLIPIDEMIA, UNSPECIFIED 12/23/2019 ANDREI BERG, Philippe VIDAL Ot I10 ESSENTIAL (PRIMARY) HYPERTENSION 12/23/2019 ANDREI BERG, Philippe VIDAL Ot I73 .9 PERIPHERAL VASCULAR DISEASE, UNSPECIFIED 01/04/2020 LARRY SUTTON DO Ot K82. 8 OTHER SPECIFIED DISEASES OF GALLBLADDER 01/04/2020 LARRY SUTTON DO Ot R10. 13 EPIGASTRIC PAIN 01/04/2020 LARRY SUTTON DO Ot Z01.812 ENCOUNTER FOR PREPROCEDURAL LABORATORY E 01/04/2020 LARRY SUTTON DO Ot Z11. 59 ENCOUNTER FOR SCREENING FOR OTHER VIRAL 01/07/2020 LARRY SUTTON DO Ot E78. 01 FAMILIAL HYPERCHOLESTEROLEMIA 01/07/2020 LARRY SUTTON DO Ot E78. 5 HYPERLIPIDEMIA, UNSPECIFIED 01/07/2020 LARRY SUTTON DO Ot F17.210 NICOTINE DEPENDENCE, CIGARETTES, UNCOMPL 01/07/2020 LARRY SUTTON DO D Ot F41. 9 ANXIETY DISORDER, UNSPECIFIED 01/07/2020 [facility] G93. 2 BENIGN INTRACRANIAL HYPERTENSION 01/07/2020 [facility] Ot I73. 9 PERIPHERAL VASCULAR DISEASE, UNSPECIFIED 01/07/2020 [facility] Ot K21. 9 GASTRO-ESOPHAGEAL REFLUX DISEASE WITHOUT 01/07/2020 [facility] Ot K81. 1 CHRONIC CHOLECYSTITIS 01/07/2020 [facility] Ot K82. 8 OTHER SPECIFIED DISEASES OF GALLBLADDER 01/07/2020 [facility] Ot Z79. 02 [facility] (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 01/07/2020 [facility] Ot Z79. 82 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 (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 OF ASPIRIN 01/07/2020 [facility] Ot Z79.899 OTHER [facility] (CURRENT) DRUG THERAPY 01/07/2020 [facility] Ot Z83. 3 FAMILY HISTORY OF DIABETES MELLITUS 01/07/2020 [facility] Ot Z90.710 ACQUIRED ABSENCE OF BOTH CERVIX AND UTER 01/13/2020 [facility] Ot E78. 01 FAMILIAL HYPERCHOLESTEROLEMIA 01/13/2020 [facility] Ot E78. 5 HYPERLIPIDEMIA, UNSPECIFIED 01/13/2020 [facility] Ot F17.210 NICOTINE DEPENDENCE, CIGARETTES, UNCOMPL 01/13/2020 [facility] Ot F41. 9 ANXIETY DISORDER, UNSPECIFIED 01/13/2020 [facility] Ot G93. 2 BENIGN INTRACRANIAL HYPERTENSION 01/13/2020 [facility] Ot I73. 9 PERIPHERAL VASCULAR DISEASE, UNSPECIFIED 01/13/2020 [facility] Ot K21. 9 GASTRO-ESOPHAGEAL REFLUX DISEASE WITHOUT 01/13/2020 [facility] Ot K81. 1 CHRONIC CHOLECYSTITIS 01/13/2020 [facility] Ot K82. 8 OTHER SPECIFIED DISEASES OF GALLBLADDER 01/13/2020 [facility] Ot Z79. 02 [facility] (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 01/13/2020 [facility] Ot Z79. 82 [facility] (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 OF ASPIRIN 01/13/2020 LARRY SUTTON DO Ot Z79.899 OTHER [facility] (CURRENT) DRUG THERAPY 01/13/2020 LARRY SUTTON DO Ot Z83. 3 FAMILY HISTORY OF DIABETES MELLITUS 01/13/2020 LARRY SUTTON DO Ot Z90.710 ACQUIRED ABSENCE OF BOTH CERVIX AND UTER 01/14/2020 ANDREI BERG, Philippe VIDAL Ot E78 .5 HYPERLIPIDEMIA, UNSPECIFIED 01/14/2020 ANDREI BERG, Philippe VIDAL Ot I10 ESSENTIAL (PRIMARY) HYPERTENSION 01/14/2020 ANDREI BERG, Philippe VIDAL Ot I73 .9 PERIPHERAL VASCULAR DISEASE, UNSPECIFIED 01/20/2020 Ot 611.8 01/20/2020 Ot V76.12 01/20/2020 ANDREI BERG, Philippe VIDAL Ot E78 .5 HYPERLIPIDEMIA, UNSPECIFIED 01/20/2020 ANDREI BERG, Philippe VIDAL Ot I10 ESSENTIAL (PRIMARY) HYPERTENSION 01/20/2020 Philippe FORBES MD, Ot I73 .9 PERIPHERAL VASCULAR DISEASE, UNSPECIFIED 01/20/2020 Philippe FORBES MD, Ot E78 .5 HYPERLIPIDEMIA, UNSPECIFIED 01/20/2020 Philippe FORBES MD Ot I10 ESSENTIAL (PRIMARY) HYPERTENSION 01/20/2020 Philippe FORBES MD, Ot I73 .9 PERIPHERAL VASCULAR DISEASE, UNSPECIFIED Procedures There is no data. Results Test Result Range Automated blood complete blood count ([facility]) panel - 03/02/19 12:42 Blood leukocytes automated count (number/volume) 11.8 10*3/uL 4.3-11.0 Blood erythrocytes automated count (number/volume) 5.17 10*6/uL 4.35-5.85 Venous blood hemoglobin measurement (mass/volume) 16.2 g/dL 11.5-16.0 Blood hematocrit (volume fraction) 47 % 35-52 Automated erythrocyte mean corpuscular volume 91 [ foz_us] 80-99 Automated erythrocyte mean corpuscular h emoglobin (mass per erythrocyte) 31 pg 25-34 Automated erythrocyte mean corpuscular h emoglobin concentration measurement (mass/volume) 34 g/dL 32-36 Automated erythrocyte distribution width ratio 14. 7 % 10.0- 14.5 Automated blood platelet count (count/volume) 204 10*3/uL 130-400 Automated blood platelet mean volume measurement 11.5 [foz_us] 7.4-10.4 PT panel in platelet poor plasma by coag ulation assay - 03/02/19 12:42 Prothrombin time (PT) in platelet poor plasma by coagu lation assay 12.7 s 12.2-14.7 INR in platelet poor plasma or blood by coagulation as say 0.9 0.8-1.4 Activated partial thromboplastin time (a PTT) in platelet poor plasma bycoagulation assay - 03/02/19 12:42 Activated partial thromboplastin time (a PTT) in platelet poor plasma bycoagulation assay 33 s 24-35 Comprehensive metabolic panel - 03/02/19 12:42 Serum or plasma sodium measurement (moles/volume) 140 mmol/L 135-145 Serum or plasma potassium measurement (moles/volume) 3.5 mmol/L 3.6-5.0 Serum or plasma chloride measurement (moles/volume) 105 mmol/L 98-107 Carbon dioxide 22 mmol/L 21-32 Serum or plasma anion gap determination (moles/volume) 13 mmol/L 5-14 Serum or plasma urea nitrogen measurement (mass/volume ) 27 mg/dL 7-18 Serum or plasma creatinine measurement (mass/volume) 0.72 mg/dL 0.60-1.30 Serum or plasma urea nitrogen/creatinine mass ratio 38 NRG Serum or plasma creatinine measurement w ith calculation of estimated glomerular filtration rate > NRG Serum or plasma glucose measurement (mass/volume) 120 mg/dL 70-105 Serum or plasma calcium measurement (mass/volume) 9.7 mg/dL 8.5-10.1 Serum or plasma total bilirubin measurement (mass/volu me) 0.8 mg/dL 0.1-1.0 Serum or plasma alkaline phosphatase asad surement (enzymatic activity/volume) 114 U/L 40-136 Serum or plasma aspartate aminotransfera se measurement (enzymatic activity/volume) 14 U/L 5-34 Serum or plasma alanine aminotransferase measurement (enzymatic activity/volume) 18 U/L 0-55 Serum or plasma protein measurement (mass/volume) 7.7 g/dL 6.4-8.2 Serum or plasma albumin measurement (mass/volume) 4.1 g/dL 3.2-4.5 CALCIUM CORRECTED 9.6 mg/dL 8.5-10.1 Methicillin resistant Staphylococcus aur eus (MRSA) screening culture - 03/02/19 12:42 Methicillin resistant Staphylococcus aureus (MRSA) scr eening culture NEG NRG Complete blood count (CBC) with automate d white blood cell (WBC) differential - 03/22/19 03:13 Blood leukocytes automated count (number/volume) 13.0 10*3/uL 4.3-11.0 Blood erythrocytes automated count (number/volume) 5.33 10*6/uL 4.35-5.85 Venous blood hemoglobin measurement (mass/volume) 16.6 g/dL 11.5-16.0 Blood hematocrit (volume fraction) 48 % 35-52 Automated erythrocyte mean corpuscular volume 91 [ foz_us] 80-99 Automated erythrocyte mean corpuscular h emoglobin (mass per erythrocyte) 31 pg 25-34 Automated erythrocyte mean corpuscular h emoglobin concentration measurement (mass/volume) 34 g/dL 32-36 Automated erythrocyte distribution width ratio 14. 9 % 10.0- 14.5 Automated blood platelet count (count/volume) 255 10*3/uL 130-400 Automated blood platelet mean volume measurement 11.5 [foz_us] 7.4-10.4 Automated blood neutrophils/100 leukocytes 60 % 42-75 Automated blood lymphocytes/100 leukocytes 33 % 12-44 Blood monocytes/100 leukocytes 5 % 0-12 Automated blood eosinophils/100 leukocytes 1 % 0-10 Automated blood basophils/100 leukocytes 0 % 0-10 Blood neutrophils automated count (number/volume) 7.8 10*3 1.8-7.8 Blood lymphocytes automated count (number/volume) 4.3 10*3 1.0-4.0 Blood monocytes automated count (number/volume) 0. 7 10*3 0.0-1.0 Automated eosinophil count 0.1 10*3/uL 0 .0-0.3 Automated blood basophil count (count/volume) 0.0 10*3/uL 0.0-0.1 PT panel in platelet poor plasma by coag ulation assay - 03/22/19 03:13 Prothrombin time (PT) in platelet poor plasma by coagu lation assay 12.6 s 12.2-14.7 INR in platelet poor plasma or blood by coagulation as say 0.9 0.8-1.4 Activated partial thromboplastin time (a PTT) in platelet poor plasma bycoagulation assay - 03/22/19 03:13 Activated partial thromboplastin time (a PTT) in platelet poor plasma bycoagulation assay 32 s 24-35 Comprehensive metabolic panel - 03/22/19 03:13 Serum or plasma sodium measurement (moles/volume) 138 mmol/L 135-145 Serum or plasma potassium measurement (moles/volume) 4.1 mmol/L 3.6-5.0 Serum or plasma chloride measurement (moles/volume) 105 mmol/L 98-107 Carbon dioxide 19 mmol/L 21-32 Serum or plasma anion gap determination (moles/volume) 14 mmol/L 5-14 Serum or plasma urea nitrogen measurement (mass/volume ) 24 mg/dL 7-18 Serum or plasma creatinine measurement (mass/volume) 0.72 mg/dL 0.60-1.30 Serum or plasma urea nitrogen/creatinine mass ratio 33 NRG Serum or plasma creatinine measurement w ith calculation of estimated glomerular filtration rate > NRG Serum or plasma glucose measurement (mass/volume) 136 mg/dL 70-105 Serum or plasma calcium measurement (mass/volume) 9.5 mg/dL 8.5-10.1 Serum or plasma total bilirubin measurement (mass/volu me) 0.7 mg/dL 0.1-1.0 Serum or plasma alkaline phosphatase asad surement (enzymatic activity/volume) 122 U/L 40-136 Serum or plasma aspartate aminotransfera se measurement (enzymatic activity/volume) 16 U/L 5-34 Serum or plasma alanine aminotransferase measurement (enzymatic activity/volume) 17 U/L 0-55 Serum or plasma protein measurement (mass/volume) 7.6 g/dL 6.4-8.2 Serum or plasma albumin measurement (mass/volume) 4.1 g/dL 3.2-4.5 CALCIUM CORRECTED 9.4 mg/dL 8.5-10.1 Complete blood count (CBC) with automate d white blood cell (WBC) differential - 03/24/19 04:55 Blood leukocytes automated count (number/volume) 14.1 10*3/uL 4.3-11.0 Blood erythrocytes automated count (number/volume) 4.86 10*6/uL 4.35-5.85 Venous blood hemoglobin measurement (mass/volume) 15.4 g/dL 11.5-16.0 Blood hematocrit (volume fraction) 45 % 35-52 Automated erythrocyte mean corpuscular volume 92 [ foz_us] 80-99 Automated erythrocyte mean corpuscular h emoglobin (mass per erythrocyte) 32 pg 25-34 Automated erythrocyte mean corpuscular h emoglobin concentration measurement (mass/volume) 35 g/dL 32-36 Automated erythrocyte distribution width ratio 14. 9 % 10.0- 14.5 Automated blood platelet count (count/volume) 217 10*3/uL 130-400 Automated blood platelet mean volume measurement 11.6 [foz_us] 7.4-10.4 Automated blood neutrophils/100 leukocytes 63 % 42-75 Automated blood lymphocytes/100 leukocytes 29 % 12-44 Blood monocytes/100 leukocytes 7 % 0-12 Automated blood eosinophils/100 leukocytes 0 % 0-10 Automated blood basophils/100 leukocytes 0 % 0-10 Blood neutrophils automated count (number/volume) 9.0 10*3 1.8-7.8 Blood lymphocytes automated count (number/volume) 4.2 10*3 1.0-4.0 Blood monocytes automated count (number/volume) 1. 0 10*3 0.0-1.0 Automated eosinophil count 0.0 10*3/uL 0 .0-0.3 Automated blood basophil count (count/volume) 0.0 10*3/uL 0.0-0.1 PT panel in platelet poor plasma by coag ulation assay - 03/24/19 04:55 Prothrombin time (PT) in platelet poor plasma by coagu lation assay 13.2 s 12.2-14.7 INR in platelet poor plasma or blood by coagulation as say 1.0 0.8-1.4 Activated partial thromboplastin time (a PTT) in platelet poor plasma bycoagulation assay - 03/24/19 04:55 Activated partial thromboplastin time (a PTT) in platelet poor plasma bycoagulation assay 29 s 24-35 Comprehensive metabolic panel - 03/24/19 04:55 Serum or plasma sodium measurement (moles/volume) 143 mmol/L 135-145 Serum or plasma potassium measurement (moles/volume) 3.6 mmol/L 3.6-5.0 Serum or plasma chloride measurement (moles/volume) 106 mmol/L 98-107 Carbon dioxide 24 mmol/L 21-32 Serum or plasma anion gap determination (moles/volume) 13 mmol/L 5-14 Serum or plasma urea nitrogen measurement (mass/volume ) 22 mg/dL 7-18 Serum or plasma creatinine measurement (mass/volume) 0.78 mg/dL 0.60-1.30 Serum or plasma urea nitrogen/creatinine mass ratio 28 NRG Serum or plasma creatinine measurement w ith calculation of estimated glomerular filtration rate > NRG Serum or plasma glucose measurement (mass/volume) 105 mg/dL 70-105 Serum or plasma calcium measurement (mass/volume) 9.7 mg/dL 8.5-10.1 Serum or plasma total bilirubin measurement (mass/volu me) 0.6 mg/dL 0.1-1.0 Serum or plasma alkaline phosphatase asad surement (enzymatic activity/volume) 99 U/L 40-136 Serum or plasma aspartate aminotransfera se measurement (enzymatic activity/volume) 13 U/L 5-34 Serum or plasma alanine aminotransferase measurement (enzymatic activity/volume) 17 U/L 0-55 Serum or plasma protein measurement (mass/volume) 7.6 g/dL 6.4-8.2 Serum or plasma albumin measurement (mass/volume) 4.1 g/dL 3.2-4.5 CALCIUM CORRECTED 9.6 mg/dL 8.5-10.1 Magnesium - 03/24/19 04:55 Magnesium 2.2 mg/dL 1.6-2.4 Serum or plasma troponin i.cardiac measu rement (mass/volume) - 03/24/19 04:55 Serum or plasma troponin i.cardiac measurement (mass/v olume) < ng/mL <0.028 Myoglobin, serum - 03/24/19 04:55 Myoglobin, serum 31.7 ng/mL 10.0-92.0 Lipase - 03/24/19 04:55 Lipase 18 U/L 8-78 Manual absolute plasma cell count - 03/06 04:55 Blood monocytes/100 leukocytes 9 % NRG Manual blood segmented neutrophils/100 leukocytes 58 % NRG Manual blood lymphocytes/100 leukocytes 33 % NRG Complete blood count (CBC) with automate d white blood cell (WBC) differential - 04/30/19 16:50 Blood leukocytes automated count (number/volume) 11.0 10*3/uL 4.3-11.0 Blood erythrocytes automated count (number/volume) 4.57 10*6/uL 4.35-5.85 Venous blood hemoglobin measurement (mass/volume) 14.2 g/dL 11.5-16.0 Blood hematocrit (volume fraction) 42 % 35-52 Automated erythrocyte mean corpuscular volume 92 [ foz_us] 80-99 Automated erythrocyte mean corpuscular h emoglobin (mass per erythrocyte) 31 pg 25-34 Automated erythrocyte mean corpuscular h emoglobin concentration measurement (mass/volume) 34 g/dL 32-36 Automated erythrocyte distribution width ratio 15. 1 % 10.0- 14.5 Automated blood platelet count (count/volume) 202 10*3/uL 130-400 Automated blood platelet mean volume measurement 11.4 [foz_us] 7.4-10.4 Automated blood neutrophils/100 leukocytes 75 % 42-75 Automated blood lymphocytes/100 leukocytes 17 % 12-44 Blood monocytes/100 leukocytes 8 % 0-12 Automated blood eosinophils/100 leukocytes 1 % 0-10 Automated blood basophils/100 leukocytes 0 % 0-10 Blood neutrophils automated count (number/volume) 8.2 10*3 1.8-7.8 Blood lymphocytes automated count (number/volume) 1.9 10*3 1.0-4.0 Blood monocytes automated count (number/volume) 0. 8 10*3 0.0-1.0 Automated eosinophil count 0.1 10*3/uL 0 .0-0.3 Automated blood basophil count (count/volume) 0.0 10*3/uL 0.0-0.1 PT panel in platelet poor plasma by coag ulation assay - 04/30/19 16:50 Prothrombin time (PT) in platelet poor plasma by coagu lation assay 13.6 s 12.2-14.7 INR in platelet poor plasma or blood by coagulation as say 1.0 0.8-1.4 Activated partial thromboplastin time (a PTT) in platelet poor plasma bycoagulation assay - 04/30/19 16:50 Activated partial thromboplastin time (a PTT) in platelet poor plasma bycoagulation assay 32 s 24-35 Comprehensive metabolic panel - 04/30/19 16:50 Serum or plasma sodium measurement (moles/volume) 141 mmol/L 135-145 Serum or plasma potassium measurement (moles/volume) 3.3 mmol/L 3.6-5.0 Serum or plasma chloride measurement (moles/volume) 108 mmol/L 98-107 Carbon dioxide 25 mmol/L 21-32 Serum or plasma anion gap determination (moles/volume) 8 mmol/L 5-14 Serum or plasma urea nitrogen measurement (mass/volume ) 20 mg/dL 7-18 Serum or plasma creatinine measurement (mass/volume) 0.72 mg/dL 0.60-1.30 Serum or plasma urea nitrogen/creatinine mass ratio 28 NRG Serum or plasma creatinine measurement w ith calculation of estimated glomerular filtration rate > NRG Serum or plasma glucose measurement (mass/volume) 113 mg/dL 70-105 Serum or plasma calcium measurement (mass/volume) 9.5 mg/dL 8.5-10.1 Serum or plasma total bilirubin measurement (mass/volu me) 0.5 mg/dL 0.1-1.0 Serum or plasma alkaline phosphatase asad surement (enzymatic activity/volume) 104 U/L 40-136 Serum or plasma aspartate aminotransfera se measurement (enzymatic activity/volume) 24 U/L 5-34 Serum or plasma alanine aminotransferase measurement (enzymatic activity/volume) 30 U/L 0-55 Serum or plasma protein measurement (mass/volume) 7.2 g/dL 6.4-8.2 Serum or plasma albumin measurement (mass/volume) 4.2 g/dL 3.2-4.5 CALCIUM CORRECTED 9.3 mg/dL 8.5-10.1 Blood lactic acid measurement (moles/vol ume) - 04/30/19 16:56 Blood lactic acid measurement (moles/volume) 1.15 mmol/L 0.50-2.00 Bacterial blood culture - 04/30/19 16:56 Bacterial blood culture NG NRG Complete urinalysis with reflex to cultu re - 04/30/19 17:00 Urine color determination YELLOW NRG Urine clarity determination CLEAR NR G Urine pH measurement by test strip 5 5-9 Specific gravity of urine by test strip 1.010 1.016-1.022 Urine protein assay by test strip, semi-quantitative NEGATIVE NEGATIVE Urine glucose detection by automated test strip NE GATIVE NEGATIVE Erythrocytes detection in urine sediment by light micr oscopy NEGATIVE NEGATIVE Urine ketones detection by automated test strip 2+ NEGATIVE Urine nitrite detection by test strip NEGATIVE NEGATIVE Urine total bilirubin detection by test strip NEGA TIVE NEGATIVE Urine urobilinogen measurement by automated test strip (mass/volume) NORMAL NORMAL Urine leukocyte esterase detection by dipstick 1+ NEGATIVE Automated urine sediment erythrocyte cou nt by microscopy (number/high power field) NONE NRG Automated urine sediment leukocyte count by microscopy (number/high power field) [HPF] NRG Bacteria detection in urine sediment by light microsco py NEGATIVE NRG Squamous epithelial cells detection in u rine sediment by light microscopy 2-5 NRG Crystals detection in urine sediment by light microsco py NONE NRG Casts detection in urine sediment by light microscopy NONE NRG Mucus detection in urine sediment by light microscopy NEGATIVE NRG Complete urinalysis with reflex to culture CULTURE PENDING NRG Bacterial urine culture - 04/30/19 17:00 Bacterial urine culture NG NRG Bacterial blood culture - 04/30/19 17:05 Bacterial blood culture NG NRG Complete blood count (CBC) with automate d white blood cell (WBC) differential - 06/05/19 15:20 Blood leukocytes automated count (number/volume) 12.6 10*3/uL 4.3-11.0 Blood erythrocytes automated count (number/volume) 4.27 10*6/uL 4.35-5.85 Venous blood hemoglobin measurement (mass/volume) 13.6 g/dL 11.5-16.0 Blood hematocrit (volume fraction) 40 % 35-52 Automated erythrocyte mean corpuscular volume 94 [ foz_us] 80-99 Automated erythrocyte mean corpuscular h emoglobin (mass per erythrocyte) 32 pg 25-34 Automated erythrocyte mean corpuscular h emoglobin concentration measurement (mass/volume) 34 g/dL 32-36 Automated erythrocyte distribution width ratio 15. 0 % 10.0- 14.5 Automated blood platelet count (count/volume) 188 10*3/uL 130-400 Automated blood platelet mean volume measurement 11.2 [foz_us] 7.4-10.4 Automated blood neutrophils/100 leukocytes 82 % 42-75 Automated blood lymphocytes/100 leukocytes 12 % 12-44 Blood monocytes/100 leukocytes 6 % 0-12 Automated blood eosinophils/100 leukocytes 1 % 0-10 Automated blood basophils/100 leukocytes 0 % 0-10 Blood neutrophils automated count (number/volume) 10.3 10*3 1.8-7.8 Blood lymphocytes automated count (number/volume) 1.5 10*3 1.0-4.0 Blood monocytes automated count (number/volume) 0. 8 10*3 0.0-1.0 Automated eosinophil count 0.1 10*3/uL 0 .0-0.3 Automated blood basophil count (count/volume) 0.0 10*3/uL 0.0-0.1 Comprehensive metabolic panel - 06/05/19 15:20 Serum or plasma sodium measurement (moles/volume) 141 mmol/L 135-145 Serum or plasma potassium measurement (moles/volume) 3.7 mmol/L 3.6-5.0 Serum or plasma chloride measurement (moles/volume) 108 mmol/L 98-107 Carbon dioxide 22 mmol/L 21-32 Serum or plasma anion gap determination (moles/volume) 11 mmol/L 5-14 Serum or plasma urea nitrogen measurement (mass/volume ) 18 mg/dL 7-18 Serum or plasma creatinine measurement (mass/volume) 0.73 mg/dL 0.60-1.30 Serum or plasma urea nitrogen/creatinine mass ratio 25 NRG Serum or plasma creatinine measurement w ith calculation of estimated glomerular filtration rate > NRG Serum or plasma glucose measurement (mass/volume) 173 mg/dL 70-105 Serum or plasma calcium measurement (mass/volume) 9.3 mg/dL 8.5-10.1 Serum or plasma total bilirubin measurement (mass/volu me) 0.5 mg/dL 0.1-1.0 Serum or plasma alkaline phosphatase asad surement (enzymatic activity/volume) 115 U/L 40-136 Serum or plasma aspartate aminotransfera se measurement (enzymatic activity/volume) 13 U/L 5-34 Serum or plasma alanine aminotransferase measurement (enzymatic activity/volume) 12 U/L 0-55 Serum or plasma protein measurement (mass/volume) 7.1 g/dL 6.4-8.2 Serum or plasma albumin measurement (mass/volume) 4.0 g/dL 3.2-4.5 CALCIUM CORRECTED 9.3 mg/dL 8.5-10.1 Complete urinalysis with reflex to cultu re - 06/05/19 15:22 Urine color determination YELLOW NRG Urine clarity determination CLEAR NR G Urine pH measurement by test strip 5 5-9 Specific gravity of urine by test strip 1.020 1.016-1.022 Urine protein assay by test strip, semi-quantitative NEGATIVE NEGATIVE Urine glucose detection by automated test strip NE GATIVE NEGATIVE Erythrocytes detection in urine sediment by light micr oscopy NEGATIVE NEGATIVE Urine ketones detection by automated test strip NE GATIVE NEGATIVE Urine nitrite detection by test strip NEGATIVE NEGATIVE Urine total bilirubin detection by test strip NEGA TIVE NEGATIVE Urine urobilinogen measurement by automated test strip (mass/volume) NORMAL NORMAL Urine leukocyte esterase detection by dipstick 1+ NEGATIVE Automated urine sediment erythrocyte cou nt by microscopy (number/high power field) NONE NRG Automated urine sediment leukocyte count by microscopy (number/high power field) [HPF] NRG Bacteria detection in urine sediment by light microsco py FEW NRG Squamous epithelial cells detection in u rine sediment by light microscopy 2-5 NRG Crystals detection in urine sediment by light microsco py NONE NRG Casts detection in urine sediment by light microscopy NONE NRG Mucus detection in urine sediment by light microscopy MODERATE NRG Complete urinalysis with reflex to culture YES NRG Bacterial urine culture - 06/05/19 15:22 Bacterial urine culture NG NRG Automated blood complete blood count (he mogram) panel - 06/16/19 09:03 Blood leukocytes automated count (number/volume) 8.3 10*3/uL 4.3-11.0 Blood erythrocytes automated count (number/volume) 4.87 10*6/uL 4.35-5.85 Venous blood hemoglobin measurement (mass/volume) 15.0 g/dL 11.5-16.0 Blood hematocrit (volume fraction) 45 % 35-52 Automated erythrocyte mean corpuscular volume 93 [ foz_us] 80-99 Automated erythrocyte mean corpuscular h emoglobin (mass per erythrocyte) 31 pg 25-34 Automated erythrocyte mean corpuscular h emoglobin concentration measurement (mass/volume) 33 g/dL 32-36 Automated erythrocyte distribution width ratio 14. 9 % 10.0- 14.5 Automated blood platelet count (count/volume) 214 10*3/uL 130-400 Automated blood platelet mean volume measurement 11.1 [foz_us] 7.4-10.4 Comprehensive metabolic panel - 06/16/19 09:03 Serum or plasma sodium measurement (moles/volume) 141 mmol/L 135-145 Serum or plasma potassium measurement (moles/volume) 3.5 mmol/L 3.6-5.0 Serum or plasma chloride measurement (moles/volume) 106 mmol/L 98-107 Carbon dioxide 24 mmol/L 21-32 Serum or plasma anion gap determination (moles/volume) 11 mmol/L 5-14 Serum or plasma urea nitrogen measurement (mass/volume ) 16 mg/dL 7-18 Serum or plasma creatinine measurement (mass/volume) 0.69 mg/dL 0.60-1.30 Serum or plasma urea nitrogen/creatinine mass ratio 23 NRG Serum or plasma creatinine measurement w ith calculation of estimated glomerular filtration rate > NRG Serum or plasma glucose measurement (mass/volume) 119 mg/dL 70-105 Serum or plasma calcium measurement (mass/volume) 9.8 mg/dL 8.5-10.1 Serum or plasma total bilirubin measurement (mass/volu me) 0.7 mg/dL 0.1-1.0 Serum or plasma alkaline phosphatase asad surement (enzymatic activity/volume) 107 U/L 40-136 Serum or plasma aspartate aminotransfera se measurement (enzymatic activity/volume) 20 U/L 5-34 Serum or plasma alanine aminotransferase measurement (enzymatic activity/volume) 18 U/L 0-55 Serum or plasma protein measurement (mass/volume) 7.7 g/dL 6.4-8.2 Serum or plasma albumin measurement (mass/volume) 4.4 g/dL 3.2-4.5 CALCIUM CORRECTED 9.5 mg/dL 8.5-10.1 Automated blood complete blood count ( mogram) panel - 06/25/19 06:49 Blood leukocytes automated count (number/volume) 6.1 10*3/uL 4.3-11.0 Blood erythrocytes automated count (number/volume) 4.61 10*6/uL 4.35-5.85 Venous blood hemoglobin measurement (mass/volume) 14.3 g/dL 11.5-16.0 Blood hematocrit (volume fraction) 44 % 35-52 Automated erythrocyte mean corpuscular volume 95 [ foz_us] 80-99 Automated erythrocyte mean corpuscular h emoglobin (mass per erythrocyte) 31 pg 25-34 Automated erythrocyte mean corpuscular h emoglobin concentration measurement (mass/volume) 33 g/dL 32-36 Automated erythrocyte distribution width ratio 14. 8 % 10.0- 14.5 Automated blood platelet count (count/volume) 193 10*3/uL 130-400 Automated blood platelet mean volume measurement 11.6 [foz_us] 7.4-10.4 Comprehensive metabolic panel - 06/25/19 06:49 Serum or plasma sodium measurement (moles/volume) 141 mmol/L 135-145 Serum or plasma potassium measurement (moles/volume) 3.8 mmol/L 3.6-5.0 Serum or plasma chloride measurement (moles/volume) 106 mmol/L 98-107 Carbon dioxide 25 mmol/L 21-32 Serum or plasma anion gap determination (moles/volume) 10 mmol/L 5-14 Serum or plasma urea nitrogen measurement (mass/volume ) 20 mg/dL 7-18 Serum or plasma creatinine measurement (mass/volume) 0.69 mg/dL 0.60-1.30 Serum or plasma urea nitrogen/creatinine mass ratio 29 NRG Serum or plasma creatinine measurement w ith calculation of estimated glomerular filtration rate > NRG Serum or plasma glucose measurement (mass/volume) 99 mg/dL 70-105 Serum or plasma calcium measurement (mass/volume) 9.6 mg/dL 8.5-10.1 Serum or plasma total bilirubin measurement (mass/volu me) 0.7 mg/dL 0.1-1.0 Serum or plasma alkaline phosphatase asad surement (enzymatic activity/volume) 98 U/L 40-136 Serum or plasma aspartate aminotransfera se measurement (enzymatic activity/volume) 15 U/L 5-34 Serum or plasma alanine aminotransferase measurement (enzymatic activity/volume) 18 U/L 0-55 Serum or plasma protein measurement (mass/volume) 7.2 g/dL 6.4-8.2 Serum or plasma albumin measurement (mass/volume) 4.2 g/dL 3.2-4.5 CALCIUM CORRECTED 9.4 mg/dL 8.5-10.1 Lipase - 06/25/19 06:49 Lipase 9 U/L 8-78 Comprehensive metabolic panel - 12/13/19 23:48 Serum or plasma sodium measurement (moles/volume) 141 mmol/L 135-145 Serum or plasma potassium measurement (moles/volume) 3.2 mmol/L 3.6-5.0 Serum or plasma chloride measurement (moles/volume) 104 mmol/L 98-107 Carbon dioxide 23 mmol/L 21-32 Serum or plasma anion gap determination (moles/volume) 14 mmol/L 5-14 Serum or plasma urea nitrogen measurement (mass/volume ) 19 mg/dL 7-18 Serum or plasma creatinine measurement (mass/volume) 0.71 mg/dL 0.60-1.30 Serum or plasma urea nitrogen/creatinine mass ratio 27 NRG Serum or plasma creatinine measurement w ith calculation of estimated glomerular filtration rate > NRG Serum or plasma glucose measurement (mass/volume) 97 mg/dL 70-105 Serum or plasma calcium measurement (mass/volume) 9.8 mg/dL 8.5-10.1 Serum or plasma total bilirubin measurement (mass/volu me) 0.7 mg/dL 0.1-1.0 Serum or plasma alkaline phosphatase asad surement (enzymatic activity/volume) 106 U/L 40-136 Serum or plasma aspartate aminotransfera se measurement (enzymatic activity/volume) 13 U/L 5-34 Serum or plasma alanine aminotransferase measurement (enzymatic activity/volume) 7 U/L 0-55 Serum or plasma protein measurement (mass/volume) 7.7 g/dL 6.4-8.2 Serum or plasma albumin measurement (mass/volume) 4.4 g/dL 3.2-4.5 CALCIUM CORRECTED 9.5 mg/dL 8.5-10.1 Complete blood count (CBC) with automate d white blood cell (WBC) differential - 12/13/19 23:48 Blood leukocytes automated count (number/volume) 8.8 10*3/uL 4.3-11.0 Blood erythrocytes automated count (number/volume) 4.86 10*6/uL 4.35-5.85 Venous blood hemoglobin measurement (mass/volume) 15.1 g/dL 11.5-16.0 Blood hematocrit (volume fraction) 45 % 35-52 Automated erythrocyte mean corpuscular volume 92 [ foz_us] 80-99 Automated erythrocyte mean corpuscular h emoglobin (mass per erythrocyte) 31 pg 25-34 Automated erythrocyte mean corpuscular h emoglobin concentration measurement (mass/volume) 34 g/dL 32-36 Automated erythrocyte distribution width ratio 14. 5 % 10.0- 14.5 Automated blood platelet count (count/volume) 234 10*3/uL 130-400 Automated blood platelet mean volume measurement 11.2 [foz_us] 7.4-10.4 Automated blood neutrophils/100 leukocytes 50 % 42-75 Automated blood lymphocytes/100 leukocytes 41 % 12-44 Blood monocytes/100 leukocytes 8 % 0-12 Automated blood eosinophils/100 leukocytes 1 % 0-10 Automated blood basophils/100 leukocytes 1 % 0-10 Blood neutrophils automated count (number/volume) 4.3 10*3 1.8-7.8 Blood lymphocytes automated count (number/volume) 3.6 10*3 1.0-4.0 Blood monocytes automated count (number/volume) 0. 7 10*3 0.0-1.0 Automated eosinophil count 0.1 10*3/uL 0 .0-0.3 Automated blood basophil count (count/volume) 0.1 10*3/uL 0.0-0.1 Magnesium - 12/13/19 23:48 Magnesium 2.2 mg/dL 1.6-2.4 Serum or plasma creatine kinase measurem ent (enzymatic activity/volume) - 12/13/19 23:48 Serum or plasma creatine kinase measurem ent (enzymatic activity/volume) 24 U/L 29-168 Serum or plasma troponin i.cardiac measu rement (mass/volume) - 12/13/19 23:48 Serum or plasma troponin i.cardiac measurement (mass/v olume) < ng/mL <0.028 Myoglobin, serum - 12/13/19 23:48 Myoglobin, serum 18.0 ng/mL 10.0-92.0 Lipase - 12/13/19 23:48 Lipase 20 U/L 8-78 Serum or plasma lithium measurement (mol es/volume) - 12/13/19 23:48 BNP PT < 10.0 <100.0 PT panel in platelet poor plasma by coag ulation assay - 12/13/19 23:48 Prothrombin time (PT) in platelet poor plasma by coagu lation assay 12.6 s 12.2-14.7 INR in platelet poor plasma or blood by coagulation as say 0.9 0.8-1.4 Activated partial thromboplastin time (a PTT) in platelet poor plasma bycoagulation assay - 12/13/19 23:48 Activated partial thromboplastin time (a PTT) in platelet poor plasma bycoagulation assay 32 s 24-35 Fibrin D-dimer FEU measurement in platel et poor plasma (mass/volume) - 12/13/19 23:48 Fibrin D-dimer FEU measurement in platelet poor plasma (mass/volume) 0.29 ug/mL 0.00-0.49 Serum or plasma troponin i.cardiac measu rement (mass/volume) - 12/14/19 02:08 Serum or plasma troponin i.cardiac measurement (mass/v olume) < ng/mL <0.028 Coronavirus SARS-CoV-2 SO 2019 - 0 13:01 Coronavirus Ab [Units/volume] in Serum Negative Negative Methicillin resistant Staphylococcus aur eus (MRSA) screening culture - 01/07/20 07:35 Methicillin resistant Staphylococcus aureus (MRSA) scr eening culture NEG NRG Encounters ACCT No. Visit Date/Time Discharge Status Pt. Type Provider Facility Loc./Unit Complaint [id number] 01/08/2018 15:15:00 01/08/2018 23:59: 59 CLS Out[facility] [id number] 01/07/2020 07:16:00 12:45:00 DIS Outpatient LARRY SUTTON DO [facility] SDC BILIARY DYSKINESIA [id number] 01/04/2020 07:31:00 14:41:00 DIS Outpatient SUTTON LARRY OLIVO [facility] PREOP BILIARY DYSKINESIA [id number] 12/18/2019 08:26:00 23:59:59 CLS Outpatient Philippe FORBES MD [facility] CARD HYPERLIPIDEMIA,HYPERTEN DEBRA [id number] 12/17/2019 07:11:00 23:59:59 CLS Outpatient Philippe FORBES MD [facility] CARD HYPERLIPIDEMIA,HYPERTEN DEBRA [id number] 12/13/2019 23:43:00 02:50:00 DIS Emergency RICCARDO KUO MD [facility] ER ABD PAIN, CP [id number] 07/01/2019 09:37:00 23:59:59 CLS Preadmit STARR HERNANDEZ [facility] [facility] CARD RUQ PAIN,NAUSEA [id number] 06/25/2019 06:38:00 23:59:59 CLS Outpatient STARR HERNANDEZ [facility] RAD RUQ PAIN [id number] 06/16/2019 08:54:00 23:59:59 CLS Outpatient STARR HERNANDEZ [facility] RAD DIVERTICULITIS, LLQ ABD PAIN,LUMBAR RADICULOPATHY [id number] 06/05/2019 14:29:00 18:00:00 DIS Emergency FARZANEH RDZ APRN [facility] ER LOWER R ABD PAIN [id number] 06/03/2019 12:49:00 23:59:59 CLS Outpatient PERI MARINO APRN [facility] RAD LOW BACK PAIN [id number] 04/30/2019 16:21:00 21:38:00 DIS Emergency RENETTA RUSSELL MD [facility] ER DX W/ DIVERTICU LITIS/ABD PAIN/CP/ARM PAIN [id number] 03/24/2019 04:46:00 07:32:00 DIS Emergency RENETTA RUSSELL MD [facility] ER POSS ALLERGIC R XN [id number] 03/22/2019 03:04:00 04:13:00 DIS Emergency DEMETRIS HAINES DO [facility] ER HIVES [id number] 03/02/2019 11:50:00 21:25:00 DIS Outpatient Philippe FORBES MD [facility] CATH PAD [id number] 11/26/2018 07:59:00 23:59:59 CLS Outpatient MELLISA CURIEL MD [facility] RAD SCREENING [id number] 11/06/2016 08:49:00 23:59:59 CLS Outpatient BELÉN BROOKS DO [facility] RAD ENCOUNTER FOR SCREENIN G MAMMO FOR MALIGNANT OF VARSHA [id number] 02/16/2020 10:00:[address] Outpatient SUTTON DO, LARRY D [facility] ENDO DYSPHAGIA [id number] 02/15/2020 09:04:[address] Outpatient SUTTON LARRY OLIVO [facility] RAD DYSPHAGIA [id number] 02/15/2020 05:29:[address] Outpatient SUTTON LARRY OLIVO [facility] PREOP EGD [id number] 09/11/2006 09:13:00 Document Registration
[2020-02-16] MEDS ORDERED: MIDAZOLAM 2 MG/2 ML (VERSED) VIAL ONE (10:49)
[2020-02-16] MEDS ORDERED: proPOfol 200 MG/20 ML (DIPRIVAN) VIAL IV ONE (10:49)
--- NOTE | 2020-02-16 10:51 | Progress Note-Pre Operative ---
Pre-Operative Progress Note H&P Reviewed The H&P was reviewed, patient examined and no changes noted. Date Seen by Provider: Feb 16, 2020 Time Seen by Provider: 10:51 Date H&P Reviewed: Feb 16, 2020 Time H&P Reviewed: 10:51 Pre-Operative Diagnosis: dysphagia LARRY SUTTON DO Feb 16, 2020 10:51
[2020-02-16 11:10] VITALS: BP 117/73
--- NOTE | 2020-02-16 11:14 | Progress Note-Post Operative ---
Post-Operative Progess Note Surgeon (s)/Energy Trading Analyst (s) Surgeon LARRY SUTTON DO Energy Trading Analyst: na Pre-Operative Diagnosis dysphagia Post-Operative Diagnosis hiatal hernia, gastritis Procedure & Operative Findings Date of Procedure 02/16/20 Procedure Performed/Findings egd c biopsies Anesthesia Type per [facility] Estimated Blood Loss Estimated blood loss (mL): none Specimens/Packing Specimens Removed antrum ,body LARRY Garcia DO Feb 16, 2020 11:14
[2020-02-16 11:15] VITALS: BP_SYST 109; BP_SYST 115; BP_DIAS 70; BP_DIAS 73
--- NOTE | 2020-02-16 11:15 | Discharge Inst-Simple/Standard ---
Discharge Inst-Standard Patient Instructions/Follow Up Plan of Care/Instructions/FU: 2 weeks Bart Activity as Tolerated: Yes Discharge Diet: Regular Diet LARRY SUTTON DO Feb 16, 2020 11:15
--- NOTE | 2020-02-16 11:30 | Anesthesia-General Post-Op ---
MAC Patient Condition Mental Status/LOC: Same as Preop Cardiovascular: Satisfactory Nausea/Vomiting: Absent Respiratory: Satisfactory Pain: Controlled Complications: Absent Post Op Complications Complications None Follow Up Care/Instructions Patient Instructions None needed. Anesthesiology Discharge Order Discharge Order Patient is doing well, no complaints, stable vital signs, no apparent adverse anesthesia problems. SILVINO BECERRA DO Feb 16, 2020 11:30
[2020-02-16 11:45] VITALS: BP 129/98
[2020-02-16 12:00] VITALS: BP 129/98
--- NOTE | 2020-02-16 13:43 | OPERATIVE REPORT ---
DATE OF SERVICE: 02/16/2020 PREOPERATIVE DIAGNOSIS: Dysphagia. POSTOPERATIVE DIAGNOSES: Hiatal hernia and gastritis. PROCEDURE PERFORMED: EGD with biopsy. SURGEON: Larry Arriaga DO ANESTHESIA: Per MDA. ESTIMATED BLOOD LOSS: None. COMPLICATIONS: None. INDICATIONS FOR PROCEDURE: The patient is a 55-year-old female with dysphagia symptoms. She understands the risks and benefits of procedure and wished to proceed with the procedure. Consent was signed in the chart. DESCRIPTION OF PROCEDURE: The patient was taken to the endoscopy suite and placed in a left lateral recumbent position. Timeout was performed. Scope was inserted in the mouth, down the esophagus, stomach and into the duodenum without difficulty. No polyps, masses or ulcerations within the duodenum. Scope was slowly retracted back into the stomach, where it was further insufflated. Changes consistent with gastritis were present. Biopsies of the antrum and body were obtained. Scope was retroflexed noting a hiatal hernia and no other pathology. Scope was returned to its normal position and slowly withdrawn to distal esophagus. No polyps, masses or ulcerations. Biopsy of GE junction was obtained. Scope was then slowly retracted back until completely removed. The patient tolerated the procedure well without any complications. She was taken to recovery room in a stable condition. RECOMMENDATIONS: The patient was taken on current medications. We will await biopsy results. We will follow up in two weeks. Any issues before that be seen at that time. Job ID: [id number] DocumentID: [id number] Dictated Date: 02/16/2020 11:17:17 [place] Date: 02/16/2020 13:43:19 Dictated By: LARRY ARRIAGA DO
== END 2020-02-16 12:00 | disposition home or self-care (01) ==
LOC: ENDO 10:00
PROVIDERS: ATTEND Surgery
DX: K44.9 Diaphragmatic hernia without obstruction or gangrene (principal); K21.0 Gastro-esophageal reflux disease with esophagitis; K29.70 Gastritis, unspecified, without bleeding; K21.9 Gastro-esophageal reflux disease without esophagitis; I10 Essential (primary) hypertension; I73.9 Peripheral vascular disease, unspecified; E78.01 Familial hypercholesterolemia; F17.210 Nicotine dependence, cigarettes, uncomplicated; Z79.02 Long term (current) use of antithrombotics/antiplatelets; Z79.82 Long term (current) use of aspirin; Z79.899 Other long term (current) drug therapy; Z90.49 Acquired absence of other specified parts of digestive tract; Z90.710 Acquired absence of both cervix and uterus; Z83.3 Family history of diabetes mellitus

== ENCOUNTER → 2020-04-07 | Outpatient (CLI) | payer OTHER ==
[~2020-04-07] MED LIST changes: +CATHETER FLUSH 10 ML SYR IV PRN; +HOLD METFORMIN - RECEIVED CONTRAST 20 ML VIAL IV SCH; +IOHEXOL 350 MG/ML 100 ML (OMNIPAQUE 350) VIAL IV ONE; +NS 100 ML (IVPB) BAG IV ONE
[2020-04-07 16:45] LABS: CREATININE SERUM 0.67 MG/DL (0.60-1.30); GFR ESTIMATED > 60
[2020-04-07 16:46] LABS: BUN/CREATININE RATIO 37
--- NOTE | 2020-04-07 18:09 | Diagnostic Imaging Report ---
PROCEDURE: CT Angio Abdomen/Pelvis with. TECHNIQUE: Multiple contiguous axial images were obtained through the abdomen and pelvis after the uneventful bolus administration of intravenous contrast. Sagittal and coronal MIP reconstructions with then performed. All CT scans use one or more of the following dose optimizing techniques: automated exposure control, MA and/or KvP adjustment based on patient size and exam type or iterative reconstruction. INDICATION: Abdominal pain, peripheral vascular disease, and aortic aneurysm. COMPARISON: 12/14/2019. FINDINGS: Lung bases are clear. The right adrenal adenoma is stable. Otherwise, solid organs, vascular structures, and bowel are unremarkable. No free air or free fluid. There is no bowel ischemia. The greatest extent of the aneurysm sac is approximately 15 mm. Stent graft is patent. There is a mild right common iliac artery stenosis which is stable. Otherwise, there is no vascular occlusion. Hypogastrics are patent. Distal ureters and urinary bladder are normal. Osseous structures are age-appropriate. Minimal degenerative changes are seen throughout the disc spaces and facet joints. IMPRESSION: 1. Stable right adrenal adenoma. 2. No solid organ or bowel ischemia. 3. Patent aortic stent graft without aneurysm expansion or occlusion. 4. Mild right common iliac artery stenosis. Dictated by: Dictated on workstation # [id number]
== END ==
LOC: RAD 15:59
PROVIDERS: ATTEND Physician Assistant
DX: D35.00 Benign neoplasm of unspecified adrenal gland (principal); I70.8 Atherosclerosis of other arteries; I73.9 Peripheral vascular disease, unspecified
CPT/HCPCS: 36415; 74174; 82565; 84520

== ENCOUNTER 2020-04-23 03:56 | Emergency (ER) | payer OTHER ==
[~2020-04-23] VITALS: Ht 157 cm; Wt 49.8 kg
[~2020-04-23 03:56] MED LIST changes: -CATHETER FLUSH 10 ML SYR IV PRN; -HOLD METFORMIN - RECEIVED CONTRAST 20 ML VIAL IV SCH; -IOHEXOL 350 MG/ML 100 ML (OMNIPAQUE 350) VIAL IV ONE; -NS 100 ML (IVPB) BAG IV ONE
[2020-04-23] MEDS ORDERED: LACTATED RINGERS 1,000 ML IV STA (04:25)
[2020-04-23] MEDS ORDERED: FAMOTIDINE 20MG/2ML IV (PEPCID) IV STA (04:25)
[2020-04-23] MEDS ORDERED: ONDANSETRON 4 MG/2 ML (SDV) Z0FRAN IVP ONE (04:30)
[2020-04-23 04:31] LABS: BASOPHILS % (AUTO) 0 % (0-10); EOSINOPHILS # (AUTO) 0.1 10^3/uL (0.0-0.3); EOSINOPHILS % (AUTO) 1 % (0-10); HEMATOCRIT 43 % (35-52); HEMOGLOBIN 14.1 G/DL (11.5-16.0); LYMPHOCYTES # (AUTO) 2.4 X 10^3 (1.0-4.0); LYMPHOCYTES % (AUTO) 25 % (12-44); MEAN CORPUSCULAR HEMOGLOBIN 32 PG (25-34); MEAN CORPUSCULAR HGB CONC 33 G/DL (32-36); MEAN CORPUSCULAR VOLUME 96 FL (80-99); MEAN PLATELET VOLUME 10.7 FL (7.4-10.4); MONOCYTES # (AUTO) 0.5 X 10^3 (0.0-1.0); MONOCYTES % (AUTO) 5 % (0-12); NEUTROPHILS # (AUTO) 6.9 X 10^3 (1.8-7.8); NEUTROPHILS % (AUTO) 69 % (42-75); PLATELET COUNT 202 10^3/uL (130-400); WHITE BLOOD COUNT 9.9 10^3/uL (4.3-11.0)
[2020-04-23 04:34] LABS: BILIRUBIN,URINE NEGATIVE (NEGATIVE); CLARITY,URINE CLEAR; COLOR,URINE YELLOW; GLUCOSE, URINE (UA) NEGATIVE (NEGATIVE); KETONES,URINE NEGATIVE (NEGATIVE); LEUKOCYTE ESTERASE ,URINE NEGATIVE (NEGATIVE); NITRITE,URINE NEGATIVE (NEGATIVE); PROTEIN,URINE NEGATIVE (NEGATIVE)
[2020-04-23 04:38] LABS: ALBUMIN 4.1 GM/DL (3.2-4.5); CHLORIDE 105 MMOL/L (98-107); POTASSIUM 3.9 MMOL/L (3.6-5.0); SODIUM 142 MMOL/L (135-145)
[2020-04-23 04:40] LABS: CALCIUM 9.3 MG/DL (8.5-10.1)
--- NOTE | 2020-04-23 04:40 | ED Abdominal Pain ---
General Chief Complaint: Abdominal/GI Problems Stated Complaint: ABD PAIN,LEFT ARM FEELS FUNNY Source of Information: Patient Exam Limitations: No Limitations History of Present Illness Date Seen by Provider: Apr 23, 2020 Time Seen by Provider: 04:15 Initial Comments Here with report of severe upper abdominal pain. States that she's not had pain like this before but in previous episodes she's had pain in her abdomen and chest. The has had a history of biliary dyskinesia and had a cholecystectomy. Also had abdominal aneurysm that was repaired by stent. This was reviewed as recently as April [address] angiogram. She has patent aortic stent graft with the aneurysmal expansion or occlusion noted on that scan. That was done due to concerns of problems related to pain as listed above. Has had constipation but that seems to have resolved this week and she had normal bowel movement on Saturday and (2 days ago.) Patient reports that this pain feels different. Currently states that she feels nauseated and burning in her stomach or feeling like she has metal in her stomach. Onset of pain about 1 AM. Timing/Duration: 1-3 Hours Severity/Quality: Moderate, Severe, Aching, Burning Location: Epigastric Radiation: No Radiation Activities at Onset: None Modifying Factors: Improves With Resting Associated Symptoms: No Back Pain, No Chest Pain, No Fever/Chills; Heartburn, Nausea/Vomiting; No Shortness of Air, No Swelling/Mass in Abdomen, No Weakness Allergies and Home Medications Allergies Coded Allergies: No Known Drug Allergies (Unverified , 02/15/20) Home Medications Aspirin 81 Mg Tablet.dr, 81 MG PO DAILY, (Reported) Atorvastatin Calcium 10 Mg Tablet, 10 MG PO HS, (Reported) Clopidogrel Bisulfate 75 Mg Tablet, 75 MG PO DAILY, (Reported) Docusate Sodium 100 Mg Capsule, 100 MG PO BID Prescribed by: LARRY SUTTON on 01/07/20 1019 Esomeprazole Magnesium 40 Mg Cap, 40 MG PO DAILY, (Reported) Rosuvastatin Calcium 5 Mg Tablet, 5 MG PO HS, (Reported) Patient Home Medication List Home Medication List Reviewed: Yes Review of Systems Review of Systems Constitutional: see HPI; No chills, No fever EENTM: No Symptoms Reported Respiratory: No Symptoms Reported Cardiovascular: Denies Chest Pain, Denies Edema Gastrointestinal: Abdominal Pain, Nausea; Denies Vomiting Genitourinary: No Symptoms Reported Musculoskeletal: No back pain, No muscle pain Skin: no symptoms reported All Other Systems Reviewed Negative Unless Noted: Yes Past Nnrvada-Rfdeyq-Exqlsb Hx Past Med/Social Hx: Reviewed Nursing Past Med/Soc Hx Patient Social History Alcohol Use: Denies Use Number of Drinks Today: AA Alcohol Beverage of Choice: Beer Recreational Drug Use: No Smoking Status: Former Smoker Type Used: Cigarettes Former Smoker, Quit: Aug 10, 2019 2nd Hand Smoke Exposure: Yes Recent Foreign Travel: No Contact w/Someone Who Travel: No Recent Hopitalizations: No Immunizations Up To Date Tetanus Booster (TDap): Less than 5yrs Seasonal Allergies Seasonal Allergies: Yes (MILD) Past Medical History Surgeries: Yes (AORTIC STENT) Gallbladder, Hysterectomy Respiratory: No Currently Using CPAP: No Currently Using BIPAP: No Cardiac: Yes Aneurysm, High Cholesterol Neurological: No LEASE BUYER History: Hysterectomy, Menopausal Sexually Transmitted Disease: No HIV/AIDS: No Genitourinary: No Gastrointestinal: Yes Gastroesophageal Reflux, Diverticulosis Musculoskeletal: No Endocrine: No HEENT: Yes (GLASSES) Loss of Vision: Denies Hearing Impairment: Denies Cancer: No Psychosocial: Yes Anxiety Integumentary: No Blood Disorders: No Adverse Reaction/Blood Tranf: No (N/A) Family Medical History Reviewed Nursing Family Hx Physical Exam Vital Signs Vital Signs - First Documented 04/23/20 04:00 Pulse 81 Resp 16 B/P (MAP) 141/86 (104) Pulse Ox 100 O2 Delivery Room Air Capillary Refill : Height/Weight/BMI Height: 5'2.00" Weight: 136lbs. 0.0oz. 61.013010ye; 21.01 BMI Method:Stated General Appearance: WD/WN, mild distress HEENT: PERRL/EOMI, pharynx normal Neck: full range of motion, supple Respiratory: lungs clear, normal breath sounds Cardiovascular: regular rate, rhythm, no murmur Peripheral Pulses: 2+ Dorsalis Pedis (R), 2+ Left Dors-Pedis (L), 2+ Radial Pulses (R), 2+ Radial Pulses (L) Gastrointestinal: soft, tenderness (of her abdomen) Extremities: non-tender, normal inspection Back: normal inspection, no CVA tenderness, no vertebral tenderness Neurologic/Psychiatric: alert, oriented x 3 Skin: normal color, warm/dry Progress/Results/Core Measures Results/Orders Lab Results Laboratory Tests Test 04/23/20 04:15 04/23/20 04:27 Range/Units White Blood Count 9.9 4.3-11.0 10^3/uL Red Blood Count 4.43 4.35-5.85 10^6/uL Hemoglobin 14.1 11.5-16.0 G/DL Hematocrit 43 35-52 % Mean Corpuscular Volume 96 80-99 FL Mean Corpuscular Hemoglobin 32 25-34 PG Mean Corpuscular Hemoglobin Concent 33 32-36 G/DL Red Cell Distribution Width 14.7 H 10.0-14.5 % Platelet Count 202 130-400 10^3/uL Mean Platelet Volume 10.7 H 7.4-10.4 FL Neutrophils (%) (Auto) 69 42-75 % Lymphocytes (%) (Auto) 25 12-44 % Monocytes (%) (Auto) 5 0-12 % Eosinophils (%) (Auto) 1 0-10 % Basophils (%) (Auto) 0 0-10 % Neutrophils # (Auto) 6.9 1.8-7.8 X 10^3 Lymphocytes # (Auto) 2.4 1.0-4.0 X 10^3 Monocytes # (Auto) 0.5 0.0-1.0 X 10^3 Eosinophils # (Auto) 0.1 0.0-0.3 10^3/uL Basophils # (Auto) 0.0 0.0-0.1 10^3/uL Sodium Level 142 135-145 MMOL/L Potassium Level 3.9 3.6-5.0 MMOL/L Chloride Level 105 98-107 MMOL/L Carbon Dioxide Level 27 21-32 MMOL/L Anion Gap 10 5-14 MMOL/L Blood Urea Nitrogen 22 H 7-18 MG/DL Creatinine 0.65 0.60-1.30 MG/DL Estimat Glomerular Filtration Rate > 60 BUN/Creatinine Ratio 34 Glucose Level 100 70-105 MG/DL Calcium Level 9.3 8.5-10.1 MG/DL Corrected Calcium 9.2 8.5-10.1 MG/DL Total Bilirubin 0.3 0.1-1.0 MG/DL Aspartate Amino Transf (AST/SGOT) 113 H 5-34 U/L Alanine Aminotransferase (ALT/SGPT) 83 H 0-55 U/L Alkaline Phosphatase 147 H 40-136 U/L Troponin I < 0.028 <0.028 NG/ML C-Reactive Protein High Sensitivity 0.05 0.00-0.50 MG/DL Total Protein 7.0 6.4-8.2 GM/DL Albumin 4.1 3.2-4.5 GM/DL Lipase 25 8-78 U/L Urine Color YELLOW Urine Clarity CLEAR Urine pH 7.0 5-9 Urine Specific [place] 1.020 1.016-1.022 Urine Protein NEGATIVE NEGATIVE Urine Glucose (UA) NEGATIVE NEGATIVE Urine Ketones NEGATIVE NEGATIVE Urine Nitrite NEGATIVE NEGATIVE Urine Bilirubin NEGATIVE NEGATIVE Urine Urobilinogen 0.2 < = 1.0 MG/DL Urine Leukocyte Esterase NEGATIVE NEGATIVE Urine RBC (Auto) NEGATIVE NEGATIVE Urine RBC NONE /HPF Urine WBC NONE /HPF Urine Squamous Epithelial Cells 2-5 /HPF Urine Crystals NONE /LPF Urine Bacteria NEGATIVE /HPF Urine Casts NONE /LPF Urine Mucus MODERATE H /LPF Urine Culture Indicated NO My Orders Orders - ENRRIQUE BANERJEE MD Cbc With Automated Diff (04/23/20 04:25) Comprehensive Metabolic Panel (04/23/20 04:25) Hs C Reactive Protein (04/23/20 04:25) Lipase (04/23/20 04:25) Ua Culture If Indicated (04/23/20 04:25) Ondansetron Injection (Zofran Injectio (04/23/20 04:30) Lactated Ringers (Lr 1000 Ml Iv Solution (04/23/20 04:25) Famotidine Injection (Pepcid Injection) (04/23/20 04:25) Ed Iv/Invasive Line Start (04/23/20 04:25) Troponin I (04/23/20 04:41) Ekg Tracing (04/23/20 04:41) Ct Abdomen/Pelvis W (04/23/20 04:55) Iohexol Injection (Omnipaque 350 Mg/Ml 1 (04/23/20 05:30) Ns (Ivpb) (Sodium Chloride 0.9% Ivpb Bag (04/23/20 05:30) Medications Given in ED Current Medications Medications Dose Ordered Sig/Siva Route Start Time Stop Time Status Last Admin Dose Admin Iohexol 100 ml ONCE ONCE IV 04/23/20 05:30 04/23/20 05:35 DC 04/23/20 05:32 100 ML Ondansetron HCl 4 mg ONCE ONCE IVP 04/23/20 04:30 04/23/20 04:31 DC 04/23/20 04:38 4 MG Sodium Chloride 80 ml ONCE ONCE IV 04/23/20 05:30 04/23/20 05:35 DC 04/23/20 05:32 80 ML Vital Signs/I&O 04/23/20 04:00 Pulse 81 Resp 16 B/P (MAP) 141/86 (104) Pulse Ox 100 O2 Delivery Room Air Progress Progress Note : Progress Note Seen and evaluated. IV, labs and UA ordered. LR 1 L bolus. Zofran 4 mg IV and Pe pcid 20 mg IV ordered. Monitor patient. 0550: Patient states that she is feeling better but still does not feel like something is right. Pending CT scan results that were ordered due to persistent pain. 0654: Doing better. CT results noted. Discharged home with return precautions. Patient verbalize understanding of instructions and agreement with plan. Initial ECG Impression Date: Apr 23, 2020 Initial ECG Impression Time: 04:59 Initial ECG Rate: 75 Comment Sinus rhythm with normal axis. No evidence of ST elevation SD. Similar to previous of 12/14/19. Interpreted by me. Diagnostic Imaging Diagonstic Imaging: CT Plain Films/CT/US/NM/MRI: abdomen, pelvis Comments At least moderate tool in the area stool in the ascending, transverse, descending and proximal sigmoid colon. No bowel obstruction or significant focal bowel mucosal abnormality. Please correlate clinically for potential constipation. No free intraperitoneal fluid or pneumoperitoneum. Otherwise no significant interval change from the previous examination with very similar appearing chronic findings as noted. Departure Impression Primary Impression: Abdominal pain Qualified Codes: R10.10 - Upper abdominal pain, unspecified Additional Impression: Constipation Qualified Codes: K59.00 - Constipation, unspecified Disposition: 01 HOME, SELF-CARE Condition: Improved Departure-Patient Inst. Decision time for Depature: 06:55 Referrals: MELLISA CURIEL MD (PCP/Family) Primary Care Physician Patient Instructions: Severe Abdominal Pain, Adult (DC), Constipation, Adult (DC) Add. Discharge Instructions: All discharge instructions reviewed with patient and/or family. Voiced understanding. Drink plenty of fluids. You may use MiraLAX or the generic one capful twice daily for the next 3 days and then one capful daily thereafter to keep stools soft. You may increase or decrease the dose as needed to keep stools in normal range. Today you may try a fleets enema or generic to help with initial bowel movement. Follow-up with your doctor this week for recheck and further evaluation. Return for worse pain, fever, vomiting, weakness, breathing problems or other concerns as needed. Copy Copies To 1: MELLISA CURIEL MD, TIMOTHY D MD Apr 23, 2020 04:40
[2020-04-23 04:41] LABS: GLUCOSE 100 MG/DL (70-105)
[2020-04-23 04:42] LABS: CARBON DIOXIDE 27 MMOL/L (21-32)
[2020-04-23 04:43] LABS: BILIRUBIN,TOTAL 0.3 MG/DL (0.1-1.0)
[2020-04-23 04:44] LABS: ALKALINE PHOSPHATASE 147 U/L (40-136)
[2020-04-23 04:45] LABS: CREATININE SERUM 0.65 MG/DL (0.60-1.30); GFR ESTIMATED > 60
[2020-04-23 04:46] LABS: BUN/CREATININE RATIO 34
[2020-04-23 04:47] LABS: ALANINE AMINOTRANSFERASE 83 U/L (0-55)
[2020-04-23 04:48] LABS: LIPASE 25 U/L (8-78)
[2020-04-23 04:51] LABS: BACTERIA,URINE NEGATIVE /HPF
[2020-04-23] MEDS ORDERED: IOHEXOL 350 MG/ML 100 ML (OMNIPAQUE 350) VIAL IV ONE (05:30)
[2020-04-23] MEDS ORDERED: NS 100 ML (IVPB) BAG IV ONE (05:30)
[2020-04-23 06:59] VITALS: BP 132/86
--- NOTE | 2020-04-23 07:08 | Diagnostic Imaging Report ---
CT ABDOMEN/PELVIS W TECHNIQUE: Multiple contiguous axial images were obtained through the abdomen and pelvis after administration of intravenous contrast. All CT scans use one or more of the following dose optimizing techniques: automated exposure control, MA and/or KvP adjustment based on a patient size and exam type, or iterative reconstruction. INDICATION: Severe upper abdominal pain COMPARISON: 04/07/2020 FINDINGS: Lower chest: The lung bases are clear. No pericardial or pleural effusion. Peritoneum: No free intraperitoneal air or fluid. Liver and biliary system: The liver is normal. Cholecystectomy. No pathologic biliary duct dilatation. Spleen and Pancreas: Spleen is normal. The pancreas enhances normally without mass lesion or peripancreatic inflammatory changes. Adrenals: Unchanged lipid rich adrenal adenoma on the right measuring 2.9 x 2.5 cm. Left adrenal gland is normal. tract: The kidneys enhance normally without suspicious mass or obstruction. Urinary bladder is distended without wall thickening. Hysterectomy. No adnexal mass. GI tract: Stomach is partially filled with fluid and there is no appreciable wall thickening or features of perforated ulcer. No bowel obstruction. No pericolonic inflammatory changes. A large volume of stool is present throughout the majority of the colon. Descending and sigmoid colon diverticulosis without diverticulitis. The appendix is normal. Vasculature and Lymph nodes: Patent aortic stent graft without aneurysmal dilatation of the excluded aorta. The celiac, superior mesenteric and bilateral renal arteries are all patent centrally. Inferior mesenteric arteries occluded centrally which can be expected with a stent in place. Musculoskeletal: No concerning osseous lesion. IMPRESSION: 1. Moderate to large volume of colonic stool may relate to constipation. No bowel obstruction, colitis or diverticulitis. 2. Findings are in agreement with the preliminary report. Dictated by: Dictated on workstation # [id number]
== END 2020-04-23 07:01 | disposition home or self-care (01) ==
LOC: EDUNIT# 03:56 → ER 03:58
DX: R10.13 Epigastric pain (principal); K59.00 Constipation, unspecified; K21.9 Gastro-esophageal reflux disease without esophagitis; E78.00 Pure hypercholesterolemia, unspecified; Z87.891 Personal history of nicotine dependence; Z79.82 Long term (current) use of aspirin
CPT/HCPCS: 36415; 74177; 80053; 81000; 83690; 84484; 85025; 86141

== ENCOUNTER → 2020-07-27 | Outpatient (CLI) | payer OTHER ==
--- NOTE | 2020-07-27 09:46 | Diagnostic Imaging Report ---
PROCEDURE: US Renal Bilateral. TECHNIQUE: Multiple Real-time grayscale images were obtained over the kidneys in various projections bilaterally. INDICATION: Renal cystic lesion. FINDINGS: The right kidney measures 9.7 cm and the left 11.0 cm. No solid or cystic renal mass can be identified. The cortical thickness and echotextures are normal. There is a hypoechoic but solid suprarenal lesion on the right, presumed of adrenal origin, measuring 2.9 cm. This is unchanged in size and morphology from the comparison CT performed 06/05/2019 where it had density and enhancement characteristics consistent with a fat-containing adrenal adenoma. The urinary bladder is unremarkable. IMPRESSION: Normal sonographic appearance of the unobstructed kidneys. Redemonstration of a right adrenal mass previously worked up with a dedicated adrenal protocol CT. Dictated by: Dictated on workstation # [id number]
== END ==
LOC: RAD 08:40
PROVIDERS: ATTEND Internal Medicine
DX: N28.1 Cyst of kidney, acquired (principal)
CPT/HCPCS: 76770

== ENCOUNTER → 2020-08-26 | Outpatient (CLI) | payer OTHER ==
--- NOTE | 2020-08-26 14:00 | Diagnostic Imaging Report ---
PROCEDURE: CT thoracic and lumbar spine without contrast. TECHNIQUE: Multiple contiguous axial images were obtained through the thoracic and lumbar spine without the use of intravenous contrast. Sagittal and coronal reformations were then performed. All CT scans use one or more of the following dose optimizing techniques: automated exposure control, MA and/or KvP adjustment based on a patient size and exam type, or iterative reconstruction. INDICATION: Back pain. FINDINGS: CT thoracic spine: Curvature and alignment of the thoracic spine is normal. Vertebral body heights are maintained. No acute compression fractures identified. The bony spinal canal appears to be widely patent. Paraspinous tissues are unremarkable. IMPRESSION: No acute bony abnormality is detected. CT lumbar spine: Curvature of the lumbar spine is normal. Minimal retrolisthesis of L2 on L3, L3 on L4 and L4 on L5 noted. There is some generalized degenerative disc disease with variable disc space narrowing present. The vertebral body heights are maintained. No acute compression fracture is identified. The bony spinal canal appears to be patent. The patient does have a stent within the distal aorta. Low-density 2.8 cm right adrenal mass is noted suggestive of an adenoma. IMPRESSION: 1. Lumbar spondylosis. No acute bony abnormality is detected. 2. Right adrenal mass suggestive of adenoma. Dictated by: Dictated on workstation # [id number]
== END ==
LOC: RAD 13:25
PROVIDERS: ATTEND Physician Assistant
DX: M47.26 Other spondylosis with radiculopathy, lumbar region (principal); M47.24 Other spondylosis with radiculopathy, thoracic region
CPT/HCPCS: 72128; 72131

== ENCOUNTER → 2021-06-05 | Outpatient (CLI) | payer OTHER ==
[~2021-06-05] MED LIST changes: -OMEP40CA27 PO; +OMEP40CA6 PO
--- NOTE | 2021-06-05 08:24 | Diagnostic Imaging Report ---
PROCEDURE: MRI lumbar spine. TECHNIQUE: Multiplanar, multisequence MRI of the lumbar spine was performed without contrast. INDICATION: Low back pain. COMPARISON: Lumbar spine CT from 08/26/2020 FINDINGS: The lumbar spine is normal in alignment. No fracture or concerning marrow replacing process. No features of sacral insufficiency fracture or active facet synovitis. The distal thoracic cord is normal in appearance. No clumping of the intrathecal nerve roots. Paravertebral musculature is normal in appearance. Psoas muscles are unremarkable. L1-L2: No spinal canal or neuroforaminal narrowing. L2-L3: Minimal disc bulge with posterior central annular tear. There is no resultant spinal stenosis or neuroforaminal narrowing. L3-L4: Left paracentral disc protrusion contacts and potentially compresses the descending L4 nerve root within the left lateral recess. Overall there is mild spinal stenosis but severe narrowing of the left lateral recess. No foraminal narrowing. L4-L5: Minimal disc bulging but no spinal stenosis or foraminal narrowing. At L5-S1: No spinal canal or neuroforaminal narrowing. IMPRESSION: 1. At L3-L4 there is a left paracentral disc protrusion causing severe left lateral recess narrowing with potential compression of the left L4 nerve root in the lateral recess. Dictated by: Dictated on workstation # [id number]
== END ==
LOC: RAD 08:00
PROVIDERS: ATTEND Physician Assistant
DX: M51.16 Intervertebral disc disorders with radiculopathy, lumbar region (principal); M48.061 Spinal stenosis, lumbar region without neurogenic claudication
CPT/HCPCS: 72148

== ENCOUNTER 2021-06-20 02:24 | Emergency (ER) | payer OTHER ==
[~2021-06-20] VITALS: Ht 62 cm; Wt 61.2 kg
[2021-06-20 02:48] LABS: BILIRUBIN,URINE NEGATIVE (NEGATIVE); CLARITY,URINE CLEAR; COLOR,URINE YELLOW; GLUCOSE, URINE (UA) NEGATIVE (NEGATIVE); KETONES,URINE NEGATIVE (NEGATIVE); LEUKOCYTE ESTERASE ,URINE TRACE (NEGATIVE); NITRITE,URINE NEGATIVE (NEGATIVE); PROTEIN,URINE NEGATIVE (NEGATIVE)
[2021-06-20 02:56] LABS: BASOPHILS # (AUTO) 0.1 10^3/uL (0.0-0.1); BASOPHILS % (AUTO) 1 % (0-10); EOSINOPHILS # (AUTO) 0.2 10^3/uL (0.0-0.3); EOSINOPHILS % (AUTO) 2 % (0-10); HEMATOCRIT 41 % (35-52); HEMOGLOBIN 13.2 g/dL (11.5-16.0); LYMPHOCYTES # (AUTO) 2.5 10^3/uL (1.0-4.0); LYMPHOCYTES % (AUTO) 32 % (12-44); MEAN CORPUSCULAR HEMOGLOBIN 32 pg (25-34); MEAN CORPUSCULAR HGB CONC 33 g/dL (32-36); MEAN CORPUSCULAR VOLUME 97 fL (80-99); MEAN PLATELET VOLUME 10.4 fL (9.0-12.2); MONOCYTES # (AUTO) 0.6 10^3/uL (0.0-1.0); MONOCYTES % (AUTO) 8 % (0-12); NEUTROPHILS # (AUTO) 4.4 10^3/uL (1.8-7.8); NEUTROPHILS % (AUTO) 57 % (42-75); PLATELET COUNT 243 10^3/uL (130-400); WHITE BLOOD COUNT 7.6 10^3/uL (4.3-11.0)
[2021-06-20 02:58] LABS: BACTERIA,URINE NEGATIVE /HPF; RBC,URINE RARE /HPF; SQUAMOUS EPITHELIAL CELL,UR RARE /HPF; WBC,URINE RARE /HPF
[2021-06-20] MEDS ORDERED: ASPIRIN 81 MG CHEW (CHILDREN'S ASA) PO ONE (03:00)
[2021-06-20] MEDS ORDERED: NITROGLYCERIN 2% OINT 1 GM UNIT DOSE PACKET TOP ONE (03:00)
[2021-06-20 03:03] LABS: ALBUMIN 3.8 GM/DL (3.2-4.5); CHLORIDE 108 MMOL/L (98-107); POTASSIUM 3.7 MMOL/L (3.6-5.0); SODIUM 140 MMOL/L (135-145)
[2021-06-20 03:04] LABS: AMYLASE 68 U/L (25-125); CALCIUM 8.9 MG/DL (8.5-10.1)
[2021-06-20 03:05] LABS: GLUCOSE 108 MG/DL (70-105); INR 0.9 (0.8-1.4); PROTHROMBIN TIME PATIENT 12.9 SEC (12.2-14.7)
[2021-06-20 03:06] LABS: TOTAL PROTEIN 6.8 GM/DL (6.4-8.2)
[2021-06-20 03:07] LABS: BILIRUBIN,TOTAL 0.6 MG/DL (0.1-1.0); CARBON DIOXIDE 21 MMOL/L (21-32)
[2021-06-20 03:09] LABS: ALKALINE PHOSPHATASE 90 U/L (40-136); CREATININE SERUM 0.65 MG/DL (0.60-1.30); GFR ESTIMATED 94
[2021-06-20 03:10] LABS: BUN/CREATININE RATIO 29
[2021-06-20 03:12] LABS: ALANINE AMINOTRANSFERASE 24 U/L (0-55)
[2021-06-20 03:13] LABS: CREATINE KINASE 29 U/L (29-168); LIPASE 21 U/L (8-78)
[2021-06-20 03:20] LABS: CREATINE KINASE MB 0.4 NG/ML (<6.6)
--- NOTE | 2021-06-20 03:52 | ED Chest Pain ---
General Chief Complaint: Chest Pain Stated Complaint: ABD & CHEST PAIN, LEFT ARM PAIN Nursing Triage Note: Pt arrives via POV from home with c/o chest heaviness radiating to her arm; onset two days. Pt reports hx of cardiac stents. Currently taking plavix. Source: patient (LIMITED HISTORIAN ABOUT PMH) History of Present Illness Date Seen by Provider: Jun 20, 2021 Time Seen by Provider: 02:33 Initial Comments PT ARRIVES VIA POV FROM HOME C/O LOWER CHEST PAIN AND UPPER ABDOMINAL PAIN FOR THE LAST FEW DAYS PAIN IS ALL ACROSS LOWER CHEST AND UPPER ABDOMEN, BUT IS WORST IN THE CENTER PAIN IS WORSE WITH EXERTION, GOES AWAY WITH REST RATES PAIN 7/10 AT WORST, DOES NOT HAVE ANY PAIN NOW PAIN RADIATES DOWN LEFT ARM NO SHORTNESS OF BREATH NO SWEATS NO NAUSEA/VOMITING/DIARRHEA NO SWELLING IN LEGS/ FEET OR PAIN IN CALVES HAS NOT TAKEN ANYTHING FOR SYMPTOMS SYMPTOMS NO DIFFERENT TONIGHT HAS NOT SOUGHT CARE UNTIL TONIGHT PT STATES "I JUST GET MYSELF WORKED UP AND FINALLY DECIDED TO GET IT CHECKED" --PT IS PRESCRIBED VALIUM, BUT DOES NOT REPORT TAKING ANY. PT STATES SHE HAD STENT BUT DOES NOT KNOW WHERE ( OLD RECORDS REPORT STENT IN ABDOMINAL AORTA FOR ANEURYSM--PLACED IN 2019 OR 2019 ) PT STATES SHE SEES DR. ENGLAND AT [facility], AND LAST VISIT THERE WAS 06/05/21. SHE WAS STARTED ON REPATHA ( HAS ONLY TAKEN ONE DOSE, NEXT DOSE IS DUE TODAY) AND STARTED ON EZETIMIBE. PT STATES SHE HAD BEEN OFF STATINS FOR ABOUT A YEAR--STATES THEY WERE DC'D DUE TO MUSCLE PAIN PT IS ON PLAVIX AND ASPIRIN, WELL PEPCID PER MED RECONCILIATION, PT WAS ALSO PRESCRIBED CEFDINIR ON 06/05/21--PT STATES FOR SINUS INFECTION. THOSE SYMPTOMS ARE GONE PT HAS HAD BOTH COVID-19 VACCINES. NO COUGH OR URI SYMPTOMS NO FEVER PCP: DR. CURIEL HANDBELL CHOIR DIRECTOR: DR. ENGLAND AT [facility] Allergies and Home Medications Allergies Coded Allergies: No Known Drug Allergies (Unverified , 02/15/20) Patient Home Medication List Home Medication List Reviewed: Yes Aspirin (Aspir 81) 81 Mg Tablet., 81 MG PO DAILY, (Reported) Entered as Reported by: ELISEO SANTORO on 03/02/19 1320 Atorvastatin Calcium (Atorvastatin Calcium) 10 Mg Tablet, 10 MG PO HS, (Reported) Entered as Reported by: ELISEO SANTORO on 03/02/19 1320 Clopidogrel Bisulfate (Clopidogrel) 75 Mg Tablet, 75 MG PO DAILY, (Reported) Entered as Reported by: ELISEO SANTORO on 03/02/19 1320 Docusate Sodium (Colace) 100 Mg Capsule, 100 MG PO BID Prescribed by: LARRY SUTTON on 01/07/20 1019 Esomeprazole Magnesium (Nexium) 40 Mg Cap, 40 MG PO DAILY, (Reported) Entered as Reported by: HILDA OROZCO on 02/15/20 1252 Pantoprazole Sodium (Protonix) 40 Mg Tablet.dr, 40 MG PO DAILY Prescribed by: DEMETRIS HAINES on 06/20/21 0547 Rosuvastatin Calcium (Rosuvastatin Calcium) 5 Mg Tablet, 5 MG PO HS, (Reported) Entered as Reported by: HILDA OROZCO on 02/15/20 1252 Review of Systems Review of Systems Constitutional: no symptoms reported; No chills, No diaphoresis, No dizziness, No fever EENTM: No Symptoms Reported Respiratory: No Symptoms Reported Cardiovascular: See HPI, Chest Pain; Denies Edema, Denies Irregular Heart Rate, Denies Lightheadedness, Denies Palpitations, Denies Syncope Gastrointestinal: See HPI, Abdominal Pain; Denies Diarrhea, Denies Nausea, Denies Vomiting Genitourinary: No Symptoms Reported Musculoskeletal: see HPI (LEFT ARM PAIN) Skin: no symptoms reported Psychiatric/Neurological: No Symptoms Reported; Denies Numbness, Denies Paresthesia, Denies Tingling, Denies Weakness Endocrine: No Symptoms Reported Hematologic/Lymphatic: No Symptoms Reported Past Dwbiobq-Luwnrx-Mcnnrp Hx Patient Social History Tobacco Use?: Yes Tobacco type used: Cigarettes Smoking Status: Former Smoker Use of E-Cig and/or Vaping dev: No Substance use?: No Alcohol Use?: No Pt feels they are or have been: No Immunizations Up To Date Tetanus Booster (TDap): Less than 5yrs First/Initial COVID19 Vaccinat: 09/2020 Second COVID19 Vaccination Ayden: 10/2020 COVID19 Vaccine [employer]: [employer] Seasonal Allergies Seasonal Allergies: Yes (MILD) Past Medical History Surgeries: Yes (STENT IN ABDOMINAL AORTIC ANEURYSM;) Cardiac, Gallbladder, Hysterectomy, Vascular Surgery Respiratory: No Currently Using CPAP: No Currently Using BIPAP: No Cardiac: Yes (STENT IN AORTA ) Aneurysm, Coronary Artery Disease, High Cholesterol, Peripheral Vascular Neurological: No DELI SLICER History: Hysterectomy, Menopausal Sexually Transmitted Disease: No HIV/AIDS: No Genitourinary: No Gastrointestinal: Yes Gastroesophageal Reflux, Diverticulosis, Hiatal Hernia Musculoskeletal: No Endocrine: No HEENT: Yes (GLASSES) Loss of Vision: Denies Hearing Impairment: Denies Cancer: No Psychosocial: Yes Anxiety Integumentary: No Blood Disorders: No Adverse Reaction/Blood Tranf: No (N/A) Family Medical History SOCIAL HISTORY: -SMOKED 2 PPD, QUIT -ETOH-DENIES USE -DRUGS--DENIES USE PAST SURGICAL HISTORY: -STENT TO ABDOMINAL AORTIC ANEURYSM -LAPAROSCOPIC CHOLECYSTECTOMY 01/07/[address] SUTTON -EGD 02/16/[address] SUTTON--DX HIATAL HERNIA AND GASTRITIS -HYSTERECTOMY Physical Exam Vital Signs Vital Signs - First Documented 06/20/21 02:33 Temp 36.7 Pulse 85 Resp 20 B/P (MAP) 170/97 (121) Pulse Ox 99 O2 Delivery Room Air Capillary Refill : Less Than 3 Seconds Height, Weight, BMI Height: 5'2.00" Weight: 136lbs. 0.0oz. 61.791347jt; 159.00 BMI Method:Stated General Appearance: No Apparent Distress, WD/WN, Thin Neck: Full Range of Motion, Normal Inspection, Non Tender, Supple Respiratory: Normal Breath Sounds, No Accessory Muscle Use, No Respiratory Distress, Other (MID AND LOWER STERNAL TENDERNESS) Cardiovascular: Regular Rate, Rhythm, No Edema, No JVD, No Murmur, Normal Peripheral Pulses Gastrointestinal: Normal Bowel Sounds, No Organomegaly, No Pulsatile Mass, Soft, Tenderness (EPIGASTRIC TENDERNESS) Extremity: Normal Capillary Refill, Normal Inspection, Normal Range of Motion, Non Tender, No Calf Tenderness, No Pedal Edema Neurologic/Psychiatric: Alert, Oriented x3, No Motor/Sensory Deficits, security monitor II- XII Norm as Tested, Other (ANXIOUS) Skin: Normal Color, Warm/Dry; No Rash Progress/Results/Core Measures Results/Orders Lab Results Laboratory Tests Test 06/20/21 02:38 06/20/21 02:40 06/20/21 05:36 Range/Units White Blood Count 7.6 4.3-11.0 10^3/uL Red Blood Count 4.18 3.80-5.11 10^6/uL Hemoglobin 13.2 11.5-16.0 g/dL Hematocrit 41 35-52 % Mean Corpuscular Volume 97 80-99 fL Mean Corpuscular Hemoglobin 32 25-34 pg Mean Corpuscular Hemoglobin Concent 33 32-36 g/dL Red Cell Distribution Width 13.8 10.0-14.5 % Platelet Count 243 130-400 10^3/uL Mean Platelet Volume 10.4 9.0-12.2 fL Immature Granulocyte % (Auto) 0 % Neutrophils (%) (Auto) 57 42-75 % Lymphocytes (%) (Auto) 32 12-44 % Monocytes (%) (Auto) 8 0-12 % Eosinophils (%) (Auto) 2 0-10 % Basophils (%) (Auto) 1 0-10 % Neutrophils # (Auto) 4.4 1.8-7.8 10^3/uL Lymphocytes # (Auto) 2.5 1.0-4.0 10^3/uL Monocytes # (Auto) 0.6 0.0-1.0 10^3/uL Eosinophils # (Auto) 0.2 0.0-0.3 10^3/uL Basophils # (Auto) 0.1 0.0-0.1 10^3/uL Immature Granulocyte # (Auto) 0.0 0.0-0.1 10^3/uL Prothrombin Time 12.9 12.2-14.7 SEC INR Comment 0.9 0.8-1.4 Activated Partial Thromboplast Time 34 24-35 SEC Sodium Level 140 135-145 MMOL/L Potassium Level 3.7 3.6-5.0 MMOL/L Chloride Level 108 H 98-107 MMOL/L Carbon Dioxide Level 21 21-32 MMOL/L Anion Gap 11 5-14 MMOL/L Blood Urea Nitrogen 19 H 7-18 MG/DL Creatinine 0.65 0.60-1.30 MG/DL Estimat Glomerular Filtration Rate 94 BUN/Creatinine Ratio 29 Glucose Level 108 H 70-105 MG/DL Calcium Level 8.9 8.5-10.1 MG/DL Corrected Calcium 9.1 8.5-10.1 MG/DL Magnesium Level 2.0 1.6-2.4 MG/DL Total Bilirubin 0.6 0.1-1.0 MG/DL Aspartate Amino Transf (AST/SGOT) 19 5-34 U/L Alanine Aminotransferase (ALT/SGPT) 24 0-55 U/L Alkaline Phosphatase 90 40-136 U/L Total Creatine Kinase 29 29-168 U/L Creatine Kinase MB 0.4 <6.6 NG/ML Myoglobin 24.3 10.0-92.0 NG/ML Troponin I < 0.028 < 0.028 <0.028 NG/ML B-Type Natriuretic Peptide 23.5 <100.0 PG/ML Total Protein 6.8 6.4-8.2 GM/DL Albumin 3.8 3.2-4.5 GM/DL Amylase Level 68 25-125 U/L Lipase 21 8-78 U/L Urine Color YELLOW Urine Clarity CLEAR Urine pH 6.0 5-9 Urine Specific [place] >=1.030 1.016-1.022 Urine Protein NEGATIVE NEGATIVE Urine Glucose (UA) NEGATIVE NEGATIVE Urine Ketones NEGATIVE NEGATIVE Urine Nitrite NEGATIVE NEGATIVE Urine Bilirubin NEGATIVE NEGATIVE Urine Urobilinogen 0.2 < = 1.0 MG/DL Urine Leukocyte Esterase TRACE H NEGATIVE Urine RBC (Auto) 1+ H NEGATIVE Urine RBC RARE /HPF Urine WBC RARE /HPF Urine Squamous Epithelial Cells RARE /HPF Urine Crystals NONE /LPF Urine Bacteria NEGATIVE /HPF Urine Casts NONE /LPF Urine Mucus SMALL H /LPF Urine Culture Indicated NO My Orders Orders - DEMETRIS HAINES DO Ed Iv/Invasive Line Start (06/20/21 02:28) Ekg Tracing (06/20/21 02:28) O2 (06/20/21 02:28) Monitor-Rhythm Ecg Trace Only (06/20/21 02:28) Amylase (06/20/21 02:28) BNP (06/20/21 02:28) Cbc With Automated Diff (06/20/21 02:28) Comprehensive Metabolic Panel (06/20/21 02:28) Creatine Kinase (06/20/21 02:28) Creatine Kinase Mb (06/20/21:28) Lipase (06/20/21 02:28) Magnesium (06/20/21 02:28) Protime With Inr (06/20/21 02:28) Partial Thromboplastin Time (06/20/21 02:28) Ua Culture If Indicated (06/20/21 02:28) Myoglobin Serum (06/20/21 02:28) Troponin I (06/20/21 02:28) Chest 1 View, Ap/Pa Only (06/20/21 02:28) Aspirin Chewable Tablet (Baby Aspirin Ch (06/20/21 03:00) Nitroglycerin Ointment (Nitrobid Ointme (06/20/21 03:00) Ct Anni Chest/Noang Abd-Pelv W (06/20/21 03:37) Iohexol Injection (Omnipaque 350 Mg/Ml 1 (06/20/21 04:30) Ns (Ivpb) (Sodium Chloride 0.9% Ivpb Bag (06/20/21 04:30) Ekg Tracing (06/20/21 05:29) Troponin I (06/20/21 05:29) Medications Given in ED Current Medications Medications Dose Ordered Sig/Siva Route Start Time Stop Time Status Last Admin Dose Admin Aspirin 324 mg ONCE ONCE PO 06/20/21 03:00 06/20/21 03:01 DC 06/20/21 03:04 324 MG Iohexol 100 ml ONCE ONCE IV 06/20/21 04:30 06/20/21 04:36 DC 06/20/21 04:23 100 ML Nitroglycerin 1 inch ONCE ONCE TOP 06/20/21 03:00 06/20/21 03:01 DC 06/20/21 03:04 1 INCH Sodium Chloride 80 ml ONCE ONCE IV 06/20/21 04:30 06/20/21 04:36 DC 06/20/21 04:23 80 ML Vital Signs/I&O 06/20/21 06/20/21 02:33 02:33 Temp 36.7 Pulse 85 Resp 20 B/P (MAP) 170/97 (121) Pulse Ox 99 99 O2 Delivery Room Air Room Air Blood Pressure Mean: 121 Progress Progress Note : Progress Note GIVEN ASPIRIN AND NITROPASTE APPLIED. BP DOWN TO 140'S/70'S PT HAD NO COMPLAINTS OF PAIN FOR REMAINDER OF ER STAY, OR ANY OTHER COMPLAINTS AT DISMISSAL, PT STATES SHE HAS AN APPOINTMENT WITH DR. CURIEL'S PA--STARR NELSON, TODAY AT 1600 Initial ECG Impression Date: Jun 20, 2021 Initial ECG Impression Time: 02:35 Initial ECG Rate: 83 Initial ECG Rhythm: Normal Sinus Initial ECG Impression: Nonspecific Changes EKG : EKG Time: 05:38 Rate: 73 Rhythm: Normal Sinus ECG Comparisson: Unchanged Diagnostic Imaging Comments CXR--PER RADIOLOGIST REPORT AT 0406 Heart size and pulmonary vascularity are normal. Lungs are clear. There are no effusions or pneumothoraces. IMPRESSION: Negative chest CT ANGIOGRAM CHEST/ABDOMEN-PELVIS--PER RADIOLOGIST REPORT AT 0458 CTA chest, abdomen and pelvis Thin axial sections through the chest, abdomen and pelvis are obtained following intravenous contrast bolus. Multiplanar MIP images were reconstructed and reviewed. All CT scans use one or more of the following dose optimizing techniques: automated exposure control, MA and/or KvP adjustment based on patient size and exam type or iterative reconstruction. The lungs are clear. There are no effusions or pneumothoraces. Thoracic aorta appears normal. There are no pulmonary emboli. No evidence of right ventricular strain. There is no hilar or mediastinal lymphadenopathy. There is calcific atherosclerosis of the abdominal aorta with some mural thrombus. Celiac and superior mesenteric arteries are widely patent. Renal arteries are widely patent. Inferior mesenteric artery is patent. There is a retroaortic left renal vein. There is some mural thrombus in both common iliac arteries. There is some atherosclerotic change of both femoral bifurcations. There is no occlusion or hemodynamically significant stenosis. Liver appears normal. Gallbladder surgically absent. Portal vein is patent. Common duct is not dilated. Pancreas appears normal. Spleen is not enlarged. There is a hiatal hernia. There is a 2.7 cm right adrenal mass. Left adrenal is normal. Kidneys appear normal. Small bowel is not dilated. The appendix is normal. There is diverticulosis of the colon without evidence of diverticulitis. Uterus is surgically absent. Urinary bladder appears normal. There are no adnexal masses. There is no intraperitoneal free air or free fluid. IMPRESSION: Right adrenal mass appears stable compared to exam done on 04/23/2020. There is uncomplicated diverticulosis of the colon. There is diffuse calcific atherosclerosis with some ectasia of the infrarenal abdominal aorta but no discrete aneurysm or dissection. The chest is unremarkable Reviewed: Reviewed by Me Departure Impression Primary Impression: Chest pain Additional Impressions: Epigastric abdominal pain HTN (hypertension) Disposition: 01 HOME, SELF-CARE Condition: Improved Departure-Patient Inst. Decision time for Depature: 06:17 Referrals: MELLISA CURIEL MD (PCP/Family) Primary Care Physician Patient Instructions: Chest Pain, Adult ED, High Blood Pressure ED, DASH Diet Add. Discharge Instructions: CONTINUE YOUR REGULAR MEDICATIONS PRESCRIBED FOLLOW UP WITH YOUR HANDBELL CHOIR DIRECTOR AND WITH DR. CURIEL THIS WEEK FOR FURTHER CARE RETURN TO ER IF WORSE All discharge instructions reviewed with patient and/or family. Voiced understanding. Scripts Pantoprazole Sodium (Protonix) 40 Mg Tablet. 40 MG PO DAILY, #15 TAB Prov: DEMETRIS HAINES DO 06/20/21 DEMETRIS HAINES DO Jun 20, 2021 03:52
--- NOTE | 2021-06-20 04:02 | Diagnostic Imaging Report ---
Indication: Chest pain Portable chest 2:48 AM Heart size and pulmonary vascularity are normal. Lungs are clear. There are no effusions or pneumothoraces. IMPRESSION: Negative chest Dictated by: Dictated on workstation # [id number]
[2021-06-20] MEDS ORDERED: NS 100 ML (IVPB) BAG IV ONE (04:30)
[2021-06-20] MEDS ORDERED: IOHEXOL 350 MG/ML 100 ML (OMNIPAQUE 350) VIAL IV ONE (04:30)
--- NOTE | 2021-06-20 04:39 | Diagnostic Imaging Report ---
INDICATION: CP, ABDOMINAL PAIN CTA chest, abdomen and pelvis Thin axial sections through the chest, abdomen and pelvis are obtained following intravenous contrast bolus. Multiplanar MIP images were reconstructed and reviewed. All CT scans use one or more of the following dose optimizing techniques: automated exposure control, MA and/or KvP adjustment based on patient size and exam type or iterative reconstruction. The lungs are clear. There are no effusions or pneumothoraces. Thoracic aorta appears normal. There are no pulmonary emboli. No evidence of right ventricular strain. There is no hilar or mediastinal lymphadenopathy. There is calcific atherosclerosis of the abdominal aorta with some mural thrombus. Celiac and superior mesenteric arteries are widely patent. Renal arteries are widely patent. Inferior mesenteric artery is patent. There is a retroaortic left renal vein. There is some mural thrombus in both common iliac arteries. There is some atherosclerotic change of both femoral bifurcations. There is no occlusion or hemodynamically significant stenosis. Liver appears normal. Gallbladder surgically absent. Portal vein is patent. Common duct is not dilated. Pancreas appears normal. Spleen is not enlarged. There is a hiatal hernia. There is a 2.7 cm right adrenal mass. Left adrenal is normal. Kidneys appear normal. Small bowel is not dilated. The appendix is normal. There is diverticulosis of the colon without evidence of diverticulitis. Uterus is surgically absent. Urinary bladder appears normal. There are no adnexal masses. There is no intraperitoneal free air or free fluid. IMPRESSION: Right adrenal mass appears stable compared to exam done on 04/23/2020. There is uncomplicated diverticulosis of the colon. There is diffuse calcific atherosclerosis with some ectasia of the infrarenal abdominal aorta but no discrete aneurysm or dissection. The chest is unremarkable Dictated by: Dictated on workstation # [id number]
[2021-06-20] MEDS ORDERED: PANT40TA2 PO (05:47)
[2021-06-20 06:38] VITALS: BP 143/77
== END 2021-06-20 06:28 | disposition home or self-care (01) ==
LOC: EDUNIT# 02:24 → ER 02:29
DX: R07.9 Chest pain, unspecified (principal); R10.13 Epigastric pain; I10 Essential (primary) hypertension; E78.00 Pure hypercholesterolemia, unspecified; I25.10 Atherosclerotic heart disease of native coronary artery without angina pectoris; K21.9 Gastro-esophageal reflux disease without esophagitis; Z87.891 Personal history of nicotine dependence; Z79.899 Other long term (current) drug therapy; Z79.82 Long term (current) use of aspirin; Z79.01 Long term (current) use of anticoagulants
CPT/HCPCS: 36415; 71045; 71275; 74177; 80053; 81000; 82150; 82550; 82553; 83690; 83735; 83874; 83880; 84484; 85025; 85610; 85730; 93005; 93041

== ENCOUNTER → 2021-07-19 | Outpatient (CLI) | payer OTHER ==
[~2021-07-19] VITALS: Ht 157 cm; Wt 64.0 kg
[~2021-07-19] MED LIST changes: +PANT40TA2 PO; +REGADENOSON 0.4 MG/5 ML SYR (LEXISCAN) IV ONE
[2021-07-19] MEDS: CATHETER FLUSH 10 ML SYR IV PRN ×2 (08:11→09:32)
[2021-07-19 09:31] VITALS: BP 162/75
--- NOTE | 2021-07-19 13:25 | Cardiology Stress Test Report ---
Stress Test Report Date of Procedure/Referring: Date of Procedure: Jul 19, 2021 PCP Phyllis Cummings MD Admitting Physician Jf Mancera MD Indications: HTN Baseline Heart Rate: 69 Baseline Blood Pressure: Blood Pressure Systolic: 162 Blood Pressure Diastolic: 75 Baseline Vitals Vital Signs Date Time Temp Pulse Resp B/P (MAP) Pulse Ox O2 Delivery O2 Flow Rate FiO2 07/19/21 09:31 64 16 162/75 (104) 97 Room Air Baseline EKG: Baseline EKG: NSR Summary After explaining the procedure to the patient, she signed a consent and then brought to the stress nuclear laboratory. Patient received 0.4 mg Lexiscan for stress test, ECG, heart rate and blood pressure were monitored continuously. Resting and stress dose of radio tracer were injected, imaging was acquired and reviewed in short axis, horizontal long axis and vertical long axis views. TID: 0.94 SSS: 4 SDS: 4 EF: 77 1. Patient tolerated Lexiscan well 2. Breast attenuation with mild decrease uptake involving the apex and inferolateral apical segment with subtle reversibility, probably due to extracardiac attenuation, no significant ischemia or infarction on SPECT images was noted. 3. Normal left ventricular size and systolic function, EF 77% PHYLLIS CUMMINGS MD Jul 19, 2021 13:25
== END ==
LOC: CARD 07:15
PROVIDERS: ATTEND Internal Medicine Cardiovascular Disease
DX: I34.0 Nonrheumatic mitral (valve) insufficiency (principal); I10 Essential (primary) hypertension; I25.10 Atherosclerotic heart disease of native coronary artery without angina pectoris
CPT/HCPCS: 78452; 93017; 93306; A9502

== ENCOUNTER → 2022-10-02 | Outpatient (CLI) | payer OTHER ==
[~2022-10-02] MED LIST changes: -REGADENOSON 0.4 MG/5 ML SYR (LEXISCAN) IV ONE
--- NOTE | 2022-10-02 10:41 | Diagnostic Imaging Report ---
EXAMINATION: US Lower Extremity Venous Duplex Left. TECHNIQUE: Multiple real-time grayscale images were obtained over the left lower extremity in various projections. Additional spectral analysis and color Doppler duplex images were also obtained. HISTORY: Left leg pain and swelling. COMPARISON: None available. FINDINGS: The left common femoral vein, deep femoral vein, superficial femoral vein and popliteal vein are patent with normal flores scale and doppler appearance. There is normal respiratory variation and augmentation. IMPRESSION: 1. No DVT of the left lower extremity. Dictated by: Dictated on workstation # [id number]
--- NOTE | 2022-10-02 15:59 | Diagnostic Imaging Report ---
INDICATION: Left leg pain and swelling. TECHNIQUE: Grayscale, color Doppler and spectral Doppler ultrasound performed of the arterial structures in the left lower extremity. COMPARISON: None. FINDINGS: There is atherosclerosis in the left lower extremity. The left common femoral artery is triphasic and measures 144 cm/s. The deep femoral artery is monophasic and measures 75 cm/s. The superficial femoral artery is biphasic throughout and ranges between 123 and 145 cm/s. The popliteal artery is biphasic and measures 90 cm/s. The posterior tibial artery is biphasic and measures 58 cm/s. The dorsalis pedis appears monophasic and measures 8 cm/s. The anterior tibial artery is not visualized. IMPRESSION: 1. Markedly diminished flow in the left dorsalis pedis without occlusion seen, this could be due to more proximal stenosis. No focal high-grade stenosis is identified. Dictated by: Dictated on workstation # [id number]
== END ==
LOC: RAD 08:31
PROVIDERS: ATTEND Nurse Practitioner Family
DX: M79.605 Pain in left leg (principal); M79.89 Other specified soft tissue disorders
CPT/HCPCS: 93926

== ENCOUNTER → 2023-03-22 | Outpatient (CLI) | payer OTHER | LOC: CARD 08:31 | PROVIDERS: ATTEND Internal Medicine Cardiovascular Disease | DX: I11.9 Hypertensive heart disease without heart failure (principal) | CPT/HCPCS: 93306 ==

== ENCOUNTER → 2023-05-08 | Outpatient (CLI) | payer OTHER ==
[~2023-05-08] VITALS: Ht 157 cm; Wt 66.0 kg
[~2023-05-08] MED LIST changes: +REGADENOSON 0.4 MG/5 ML SYR IV ONE
[2023-05-08] MEDS: CATHETER FLUSH 10 ML SYR IVP PRN ×2 (07:52→09:10)
[2023-05-08 09:09] VITALS: BP 145/79
--- NOTE | 2023-05-08 10:55 | Cardiology Stress Test Report ---
Stress Test Report Date of Procedure/Referring: Date of Procedure: May 08, 2023 PCP Mellisa Curiel MD Admitting Physician Admitting Physician: Attending Physician: Jenaro Cummings MD Baseline Heart Rate: 60 Baseline Blood Pressure: Blood Pressure Systolic: 145 Blood Pressure Diastolic: 79 Baseline Vitals Vital Signs Date Time Temp Pulse Resp B/P (MAP) Pulse Ox O2 Delivery O2 Flow Rate FiO2 05/08/23 09:09 63 145/79 (101) 99 Room Air Baseline EKG: Baseline EKG: NSR Summary After explaining the procedure to the patient, she signed a consent and then brought to the stress nuclear laboratory. Patient received 0.4 mg Lexiscan for stress test, ECG, heart rate and blood pressure were monitored continuously. Resting and stress dose of radio tracer were injected, imaging was acquired and reviewed in short axis, horizontal long axis and vertical long axis views. TID: 0.95 SSS: 4 SDS: 4 EF: 78 Patient tolerated Lexiscan well Breast attenuation with mild decrease uptake involving the mid to apical anterolateral and inferior lateral wall with mild reversibility most probably secondary to breast attenuation, overall there was no significant ischemia or infarction on SPECT images Normal left ventricular size, ejection fraction 78% Copy Copies To 1: MELLISA CURIEL MD, BASHAR J MD May 08, 2023 10:55
== END ==
LOC: CARD 08:00
PROVIDERS: ATTEND Internal Medicine Cardiovascular Disease
DX: I10 Essential (primary) hypertension (principal); I25.10 Atherosclerotic heart disease of native coronary artery without angina pectoris
CPT/HCPCS: 78452; 93017